=== PATIENT | male | born 1975 | race Caucasian/White ===

== ENCOUNTER 2022-07-11 17:55 | Emergency (ER) | payer OTHER, SELFPAY ==
--- OUTSIDE RECORDS SUMMARY | 2022-07-11 18:00 | XMS REPORT | Continuity of Care Document ---
:1975 Author Organization [facility] t Address [address] [place] [address] Care Team Providers Name Role Phone Pcp, Patient Does Not Have A Primary Care Physician [id number] JOSE ALFREDO REY Attending Clinician Unavailable Maryann Martins Attending Clinician MARYANN PRADO Attending Clinician Unavailable TIKI JOSEPH Attending Clinician Unavailable TIKI JOSEPH Attending Clinician Unavailable Tiki Joseph DO Attending Clinician Doctor Unassigned, [place] Attending Clinician Unavailable STACEY MOTT Attending Clinician Unavailable Stacey Davila Attending Clinician Tiffany Saldaña MD Attending Clinician Provider, [facility] Attending Clinician Unavailable Francoise Cruz Attending Clinician FRANCOISE AVILA Attending Clinician Unavailable King MARIAA MD, James C Attending Clinician HEIDY MARTINEZ III Attending Clinician Unavailable Darrick CAMPOS, Dorene Husain Attending Clinician Unavailable Payers Payer Name Policy Type Policy Number Effective Date Expiration Date Abner rojas [facility] 14 [id number] 2022 00:00:00 Problems Condition Condition Condition Status Onset Resolution Last Treating Co mments Source Name Details Category Date Date Treatment Clinician Date History of History of Disease Active 2021-07 K elsey gastric gastric 2-20 Seybold surgery surgery 00:00: - 00 Externa l Attention Attention Disease Active 2021-07 Wan sey deficit deficit 2-20 Seybold hyperactiv hyperactiv 00:00: - ity ity 00 Externa disorder disorder l (ADHD), (ADHD), 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 GERD GERD Disease Active 2021-07 Lynn (gastroeso (gastroeso 2-20 Se ybold phageal phageal 00:00: - reflux reflux 00 Externa disease) disease) l Other male Other male Disease Active 2021-07 K elsey erectile erectile 2-20 Seybol d dysfunctio dysfunctio 00:00: - n n 00 Externa l SKYE SKYE Disease Active 2021-07 Lynn (obstructi (obstructi 2-20 Se ybold ve sleep ve sleep 00:00: - apnea) apnea) 00 Externa l Seasonal Seasonal Disease Active 2021-07 Wanse y allergic allergic 2-20 Seybol d rhinitis rhinitis 00:00: - due to due to 00 Externa pollen pollen l Elevated Elevated Disease Active 2021-07 Wanse y BP without BP without 2-20 Se ybold diagnosis diagnosis 00:00: - of of 00 Externa hypertensi hypertensi l on on Morbid Morbid Disease Active 2021-07 Lynn obesity obesity 2-20 Seybold 00:00: - 00 Externa l Reactive Reactive Disease Active 2021-07 Yonis y airway airway 2-20 Seybold disease disease 00:00: - without without 00 Externa complicati complicati l on on Low Low Disease Active 2021-07 Lynn testostero testostero 2-20 Se ybold ne ne 00:00: - 00 Externa l No known No known Disease Unive rs active active ity of problems problems [place] [facility] Allergies, Adverse Reactions, Alerts Allergy Allergy Status Severity Reaction(s) Onset Inactive Treating Comm ents Source Name Type Date Date Clinician Cephalos Drug Active Swelling 2020-07 Lynn porins Intolera 2-22 Seybold nce 00:00: - 00 Externa l Cephalos Propensi Active Cough 2020-07 Univer s porins ty to 2-22 ity of adverse 00:00: [place] reaction 00 Medical s Branch CEPHALOS Drug Active Swelling 2020-07 Univer s PORINS Class 2-22 ity of 00:00: [place] 00 Medical Branch Cephalos Propensi Active Cough 2020-07 Univer s porins ty to 2-22 ity of adverse 00:00: [place] reaction 00 [facility] Cephalex Drug Active Other Other Lynn in Intolera 7-15 reaction( Seybo ld nce 00:00: s): Other - 00 (See Externa Comments) l "Shaky and didn't feel well""Sha ky and didn't feel well" Social History Social Habit Start Date Stop Date Quantity Comments Source Alcohol intake 2022-06-29 2022-06-29 1.43 /d Lynn Sey bold - 00:00:00 00:00:00 External Exposure to 2022-01-21 2022-01-31 Not sure University SARS-CoV-2 00:00:00 15:44:00 [facility] (event) [place] Tobacco use and 2021-07-01 2021-07-01 Smokeless tobacco Un iversity of exposure 00:00:00 00:00:00 non-user [facility] Sex Ass[birth year] At [birth year] Lynn Se ybold - 00:00:00 00:00:00 External Smoking Status Start Date Stop Date Source Never smoked tobacco Lynn Seyb old - External Medications Ordered Filled Start Stop Current Ordering Indication Dosage Frequency Signature Comments Components Source Medication Medication Date Date Medication? Clinician (SIG) Name Name Amphetamine 2021-07- No 20mg Take 20 mg Lynn -Dextroamph 2-20 12-20 by mouth 3 S eybold etamine 20 15:23: 00:00 times - MG oral 52 :00 daily Externa Tablet l Ondansetron 2021-07 Yes ondansetro Lynn (ZOFRAN) 8 2-20 n HCl 8 mg Sey bold MG oral 14:45: tablet - tablet 45 Externa l Esomeprazol 2021-07 Yes 20mg Take 20 mg Lynn e Magnesium 2-20 by mouth Seyb old 20 MG oral 14:45: - Delayed 45 Externa Release l Capsule Cetirizine 2021-07 Yes [id number] 10mg Take 1 K elsey HCl (ZyrTEC 2-20 capsule Seybo ld Allergy) 10 00:00: (10 mg - MG oral 00 total) by Externa Capsule mouth l daily predniSONE 2021-07 Yes [id number] 10mg Take 1 K elsey (DELTASONE) 2-20 tablet (10 Se ybold 10 MG oral 00:00: mg total) - tablet 00 by mouth Externa daily l Fluticasone 2021-07 Yes [id number] 1{puff} Inhale 1 Lynn -Salmeterol 2-20 puff into Sey bold 250-50 00:00: the lungs - MCG/ACT 00 every 12 Externa inhalation hours l AEROSOL POWDER, BREATH ACTIVATED Albuterol 2021-07 Yes [id number] 2{puff} Q.25D Inhale 2 Lynn HFA 108 (90 2-20 puffs into Se ybold Base) 00:00: the lungs - MCG/ACT IN 00 every 6 [employer]'S Service Supervisor a AERS hours as l needed for wheezing clomiPHENE 2021-07 Yes [id number] 50mg Take 1 Lynn Citrate 50 2-20 tablet (50 Sey bold MG oral 00:00: mg total) - Tablet 00 by mouth Externa daily l Anastrozole 2021-07 Yes [id number] Twice per Lynn 1 MG oral 2-20 week Seybold Tablet 00:00: - 00 Externa l Amphetamine 2021-07 Yes [id number] 20mg Take 1 Lynn -Dextroamph 2-20 tablet (20 Se ybold etamine 20 00:00: mg total) - MG oral 00 by mouth 3 [facility] [employer] a Tablet times l daily FLUTICASONE 2021-07 Yes [id number] 50ug Use 1 K elsey PROPIONATE, 2-20 spray (50 Sey bold NASAL, 50 00:00: mcg total) - MCG/ACT 00 in each Externa nasal nostril l Suspension daily Azithromyci 2021-07- Yes [id number] Take 2 Lynn n 250 MG 2-20 12-26 tablets by Seyb old oral Tablet 00:00: 05:59 mouth on - 00 :00 day 1 then Externa 1 tablet l by mouth daily for 4 days thereafter . Anastrozole 2021-07- No 1{tbl} Take 1 K elsey 1 MG oral 1-17 12-20 tablet by Seyb old Tablet 00:00: 00:00 mouth - 00 :00 daily Externa l Tadalafil 5 2021-07 Yes 5mg Take 5 mg K elsey MG oral 0-18 by mouth Seybold Tablet 00:00: daily - 00 Externa l anastrozole Yes anastrozol Univers 1 mg tablet 7-24 e 1 mg ity of 15:41: tablet [address] anastrozole 0 Yes anastrozol Univers 1 mg tablet 7-24 e 1 mg ity of 15:41: tablet [address] esomeprazol Yes 20mg Take 20 mg Univers e 20 mg 7-24 by mouth. ity of capsule 15:41: [address] esomeprazol Yes 20mg Take 20 mg Univers e 20 mg 7-24 by mouth. ity of capsule 15:41: [address] ondansetron Yes [id number] 8mg Take 2 Univers 4 mg 7-24 9105 tablets by ity of disintegrat 00:00: mouth [place] ing tablet 00 every 8 Medica l (eight) Branch hours as needed for Nausea and Vomiting (N/V). butalbital- 0 Yes [id number] 1{tbl} Take 1 Univers acetaminoph 7-24 9105 tablet by ity of en-caff 00:00: mouth [place] 50-325-40 00 every 8 Medical mg tablet (eight) Branch hours as needed for Pain (scale 4-6). ondansetron 2021-0 Yes [id number] 8mg Take 2 Univers 4 mg 7-24 9105 tablets by ity of disintegrat 00:00: mouth [place] ing tablet 00 every 8 Medica l (eight) Branch hours as needed for Nausea and Vomiting (N/V). butalbital- 2021- Yes [id number] 1{tbl} Take 1 Univers acetaminoph 7-24 9105 tablet by ity of en-caff 00:00: mouth [place] 50-325-40 00 every 8 Medical mg tablet (eight) Branch hours as needed for Pain (scale 4-6). dextroamphe 0 Yes 20mg Take 20 mg Univers tamine-amph 2-04 by mouth ity of etamine 13:14: daily. Up [place] (ADDERALL) 34 to TID Medical 20 mg Branch tablet dextroamphe 0 Yes 20mg Take 20 mg Univers tamine-amph 2-04 by mouth ity of etamine 13:14: daily. Up [place] (ADDERALL) 34 to TID Medical 20 mg Branch tablet dextroamphe 2-0 Yes 20mg Take 20 mg Univers tamine-amph 2-04 by mouth ity of etamine 13:14: daily. Up [place] (ADDERALL) 34 to TID Medical 20 mg Branch tablet dextroamphe 2-0 Yes 20mg Take 20 mg Univers tamine-amph 2-04 by mouth ity of etamine 13:14: daily. Up [place] (ADDERALL) 34 to TID Medical 20 mg Branch tablet dextroamphe 2021-0 Yes 20mg Take 20 mg Univers tamine-amph 2-04 by mouth ity of etamine 13:14: daily. Up [place] (ADDERALL) 34 to TID Medical 20 mg Branch tablet fluticasone 2021-0 Yes [id number] 1{puff} Inhale 1 Univers propion-walter 2-04 6 Puff every it y of meteroL 00:00: 12 [place] (ADVAIR (twelve) Medical DISKUS) hours. Branch 250-50 mcg/dose inhalation disk albuterol 2-0 Yes [id number] 2{puff} Inhale 2 Univers 90 2-04 6 Puffs ity of mcg/actuati 00:00: every 6 Vivek as on inhaler 00 (six) Medical hours as Branch needed for Wheezing or Shortness of Breath. fluticasone 2-0 Yes [id number] 1{puff} Inhale 1 Univers propion-walter 2-04 6 Puff every it y of meteroL 00:00: 12 [place] (ADVAIR (twelve) Medical DISKUS) hours. Branch 250-50 mcg/dose inhalation disk albuterol 2-0 Yes [id number] 2{puff} Inhale 2 Univers 90 2-04 6 Puffs ity of mcg/actuati 00:00: every 6 Vivek as on inhaler 00 (six) Medical hours as Branch needed for Wheezing or Shortness of Breath. fluticasone 2022-0 Yes [id number] 1{puff} Inhale 1 Univers propion-walter 2-04 6 Puff every it y of meteroL 00:00: 12 [place] (ADVAIR (twelve) Medical DISKUS) hours. Branch 250-50 mcg/dose inhalation disk albuterol 202-0 Yes [id number] 2{puff} Inhale 2 Univers 90 2-04 6 Puffs ity of mcg/actuati 00:00: every 6 Vivek as on inhaler 00 (six) Medical hours as Branch needed for Wheezing or Shortness of Breath. fluticasone 2021-0 Yes [id number] 1{puff} Inhale 1 Univers propion-walter 2-04 6 Puff every it y of meteroL 00:00: 12 [place] (ADVAIR 00 (twelve) Medical DISKUS) hours. Branch 250-50 mcg/dose inhalation disk albuterol 2021-0 Yes [id number] 2{puff} Inhale 2 Univers 90 2-04 6 Puffs ity of mcg/actuati 00:00: every 6 [place] as on inhaler 00 (six) Medical hours as Branch needed for Wheezing or Shortness of Breath. fluticasone 2021-0 Yes [id number] 1{puff} Inhale 1 Univers propion-walter 2-04 6 Puff every it y of meteroL 00:00: 12 [place] (ADVAIR 00 (twelve) Medical DISKUS) hours. Branch 250-50 mcg/dose inhalation disk albuterol 2021-0 Yes [id number] 2{puff} Inhale 2 Univers 90 2-04 6 Puffs ity of mcg/actuati 00:00: every 6 Vivek as on inhaler 00 (six) Medical hours as Branch needed for Wheezing or Shortness of Breath. Fluticasone 2021-0 2022- No 1{puff} Inhale 1 Lynn -Salmeterol 2-04 12-20 puff into Se ybold 250-50 00:00: 00:00 the lungs - MCG/ACT 00 :00 every 12 Externa inhalation hours l AEROSOL POWDER, BREATH ACTIVATED bromphenira 2021-0 Yes [id number] 5mL Take 5 mL Univers mine-pseudo 1-26 by mouth 4 it y of ephedrine-D 00:00: (four[place] (BROMFED 00 times Medical DM) 2-30-10 daily as Bran ch mg/5 mL needed for syrup Congestion /Allergies or Cough. bromphenira 2021-0 Yes [id number] 5mL Take 5 mL Univers mine-pseudo 1-26 by mouth 4 it y of ephedrine-D 00:00: (four[place] (BROMFED 00 times Medical DM) 2-30-10 daily as Bran ch mg/5 mL needed for syrup Congestion /Allergies or Cough. bromphenira 2021-0 Yes [id number] 5mL Take 5 mL Univers mine-pseudo 1-26 by mouth 4 it y of ephedrine-D 00:00: (four[place] (BROMFED 00 times Medical DM) 2-30-10 daily as Bran ch mg/5 mL needed for syrup Congestion /Allergies or Cough. bromphenira 2021-0 Yes [id number] 5mL Take 5 mL Univers mine-pseudo 1-26 by mouth 4 it y of ephedrine-D 00:00: (four) [place] (BROMFED 00 times Medical DM) 2-30-10 daily as Bran ch mg/5 mL needed for syrup Congestion /Allergies or Cough. bromphenira 2021-0 Yes [id number] 5mL Take 5 mL Univers mine-pseudo 1-26 by mouth 4 it y of ephedrine-D 00:00: (four[place] (BROMFED 00 times Medical DM) 2-30-10 daily as Bran ch mg/5 mL needed for syrup Congestion /Allergies or Cough. predniSONE 2021-0 2021- No [id number] Take 4 Univers 10 mg 1-26 02-07 tablets by ity of tablet 00:00: 05:59 mouth [place] 00 :00 daily for Medical 5 days, Branch THEN 3 tablets daily for 3 days, THEN 2 tablets daily for 2 days, THEN 1 tablet daily for 1 day. predniSONE 2021-0 2021- No [id number] Take 4 Univers 10 mg 1-26 02-07 tablets by ity of tablet 00:00: 05:59 mouth [place] 00 :00 daily for Medical 5 days, Branch THEN 3 tablets daily for 3 days, THEN 2 tablets daily for 2 days, THEN 1 tablet daily for 1 day. doxycycline 2021-0 Yes [id number] 100mg Take 1 Univers monohydrate 1-13 capsule by it y of 100 mg 00:00: mouth 2 [place] capsule 00 (two) Medical times Branch daily. doxycycline 2021-0 Yes [id number] 100mg Take 1 Univers monohydrate 1-13 capsule by it y of 100 mg 00:00: mouth 2 [place] capsule 00 (two) Medical times Branch daily. doxycycline 2-0 Yes [id number] 100mg Take 1 Univers monohydrate 1-13 capsule by it y of 100 mg 00:00: mouth 2 [place] capsule 00 (two) Medical times Branch daily. doxycycline 2-0 Yes [id number] 100mg Take 1 Univers monohydrate 1-13 capsule by it y of 100 mg 00:00: mouth 2 [place] capsule 00 (two) Medical times Branch daily. doxycycline 2022-0 Yes [id number] 100mg Take 1 Univers monohydrate 1-13 capsule by it y of 100 mg 00:00: mouth 2 [place] capsule 00 (two) Medical times Branch daily. clomiPHENE 2020-07 Yes clomiphene U nivers 50 mg 2-22 citrate 50 ity of tablet 20:08: mg tablet [place] [address] TAKE ONE Medical TABLET BY Branch MOUTH ONE TIME DAILY ANASTROZOLE 2020-07 Yes 20mg Take 20 mg Univers ORAL 2-22 by mouth. ity of 20:08: [address] tadalafiL 2020-07 Yes 20mg Take 20 mg Un quoc 20 mg 2-22 by mouth. ity of tablet 20:08: [address] clomiPHENE 2020-07 Yes clomiphene U nivers 50 mg 2-22 citrate 50 ity of tablet 20:08: mg tablet [place] [address] TAKE ONE Medical TABLET BY Branch MOUTH ONE TIME DAILY ANASTROZOLE 2020-07 Yes 20mg Take 20 mg Univers ORAL 2-22 by mouth. ity of 20:08: [address] tadalafiL 2020-07 Yes 20mg Take 20 mg Un quoc 20 mg 2-22 by mouth. ity of tablet 20:08: [address] clomiPHENE 2020-07 Yes clomiphene U nivers 50 mg 2-22 citrate 50 ity of tablet 20:08: mg tablet [place] [address] TAKE ONE Medical TABLET BY Branch MOUTH ONE TIME DAILY ANASTROZOLE 2020-07 Yes 20mg Take 20 mg Univers ORAL 2-22 by mouth. ity of 20:08: [address] tadalafiL 2020-07 Yes 20mg Take 20 mg Un quoc 20 mg 2-22 by mouth. ity of tablet 20:08: [address] clomiPHENE 2021-1 Yes clomiphene U nivers 50 mg 2-22 citrate 50 ity of tablet 20:08: mg tablet [place] [address] TAKE ONE Medical TABLET BY Branch MOUTH ONE TIME DAILY ANASTROZOLE 2020-07 Yes 20mg Take 20 mg Univers ORAL 2-22 by mouth. ity of 20:08: [address] tadalafiL 2020-07 Yes 20mg Take 20 mg Un quoc 20 mg 2-22 by mouth. ity of tablet 20:08: [address] clomiPHENE 2020-07 Yes clomiphene U nivers 50 mg 2-22 citrate 50 ity of tablet 20:08: mg tablet [place] [address] TAKE ONE Medical TABLET BY Branch MOUTH ONE TIME DAILY ANASTROZOLE 2020-07 Yes 20mg Take 20 mg Univers ORAL 2-22 by mouth. ity of 20:08: [address] tadalafiL 2020-07 Yes 20mg Take 20 mg Un quoc 20 mg 2-22 by mouth. ity of tablet 20:08: [address] clomiPHENE 2021- No clomiphene Lynn Citrate 50 - 12-20 citrate 50 Se ybold MG oral 00:00: 00:00 mg tablet - Tablet 00 :00 TAKE ONE Externa TABLET BY l MOUTH ONE TIME DAILY Cetirizine 2021- No Lynn HCl (ZyrTEC 07-1120 Seybold Allergy) 10 00:00: 00:00 - MG oral 00 :00 Externa Capsule l Immunizations Ordered Immunization Filled Immunization Date Status Commen ts Source Name Name Td (adult) 2017-01-22 Completed Lynn Lacy 00:00:00 - External Vital Signs Vital Name Observation Time Observation Value Comments Source Systolic blood 2022-06-29 21:16:00 130 mm[Hg] Lynn Lacy - pressure External Diastolic blood 2022-06-29 21:16:00 88 mm[Hg] Yonis Montgomeryold - pressure External Heart rate 2022-06-29 20:36:00 118 /min Lynn bellboenrique - External Body temperature 2022-06-29 20:36:00 37 Radha Venus ey Seybold - External Respiratory rate 2022-06-29 20:36:00 16 /min Venus bell Seybold - External Body height 2022-06-29 20:36:00 180.3 cm Lynn bellboenrique - External Body weight 2022-06-29 20:36:00 196.861 kg Lynn bellbold - External BMI 2022-06-29 20:36:00 60.53 kg/m2 Lynn bellboenrique - External Systolic blood 2022-01-31 20:42:00 142 mm[Hg] Univer sity of pressure [place] [facility] Diastolic blood 2022-01-31 20:42:00 87 mm[Hg] Unive rsity of pressure [place] [facility] Heart rate 2022-01-31 20:41:00 94 /min Universi ty [facility] [place] [facility] Body temperature 2022-01-31 20:41:00 37.17 Radha Univ ersity of [place] [facility] Respiratory rate 2022-01-31 20:41:00 20 /min Univ ersity of [place] [facility] Body height 2022-01-31 20:41:00 180.3 cm Universi ty of [place] [facility] Body weight 2022-01-31 20:41:00 187.789 kg Universi ty [facility] [place] [facility] BMI 2022-01-31 20:41:00 57.74 kg/m2 Universi ty [facility] [place] [facility] Oxygen saturation in 2022-01-31 20:41:00 97 /min University of Arterial blood by [facility] [place] [facility] marcela Pulse oximetry Branch Systolic blood 2021-08-14 19:15:00 151 mm[Hg] Univer sity of pressure [place] [facility] Diastolic blood 2021-08-14 19:15:00 97 mm[Hg] Unive rsity of pressure [place] [facility] Heart rate 2021-08-14 19:13:00 98 /min Universi ty [facility] [place] [facility] Body height 2021-08-14 19:13:00 180.3 cm Universi ty [facility] [place] [facility] Body weight 2021-08-14 19:13:00 173.444 kg [facility] [place] [facility] BMI 2021-08-14 19:13:00 53.33 kg/m2 Universi ty [facility] [place] [facility] Oxygen saturation in 2021-08-14 19:13:00 96 /min University of Arterial blood by [facility] [place] [facility] marcela Pulse oximetry Branch Procedures This patient has no known procedures. Encounters Start End Encounter Admission Attending Care Care Encounter Source Date/Time Date/Time Type Type Clinicians Facility Department ID 2022-06-29 2022-06-29 Outpatient LYNN REY [id number] Lynn 14:45:00 14:45:00 JOSE ALFREDO smith 2022-02-13 2022-02-13 Refill Johan [facility] [id number] Univers 00:00:00 00:00:00 Maryann HEALTH [id number] it y of [place] [id number] Vivek as VANDANA?BLEA [id number] [address] OFFICE [facility] 2022-01-31 2022-01-31 Urgent [facility] [id number] Univers 15:40:00 16:00:00 Care Maryann HEALTH [id number] it y of [place] [id number] Vivek as VANDANA?BLEA [id number] [address] 2022-01-31 2022-01-31 Outpatient R JOHAN [facility] [id number] Univers 15:40:00 15:40:00 MARYANN ity of [facility] 2021-12-10 2021-12-10 Outpatient R TIKI JOSEPH [facility] [id number] Univers 13:30:00 13:30:00 TIKI JOSEPH i ty of [facility] 2021-09-01 2021-09-01 Telephone Kathryn [facility] [id number] Univers 00:00:00 00:00:00 Tiki [place] [id number] i ty of [place] 4.2.7.2.686 [place] PROFESS[place] [id number] [facility] 2021-08-14 2021-08-14 Outpatient R TIKI JOSEPH [facility] [id number] Univers 13:00:00 13:30:04 TIKI JOSEPH i ty of [facility] 2021-08-14 2021-08-14 [facility] [id number] Univers 13:00:00 13:30:04 Visit Tiki GLYNN 350.1.13.10 i ty of [place] 4.2.7.2.686 [place] YENNYSONJA [id number] Me dical NAL [facility] 2021-08-14 2021-08-14 Outpatient R TIKI JOSEPH [facility] [id number] Univers 13:00:00 13:30:04 TIKI JOSEPH i ty of [facility] 2021-08-14 2021-08-14 Orders Doctor MARY [id number] Univers 00:00:00 00:00:00 Only Unassigned, CHANDLER [id number] ity of [place] [facility] [id number] Vivek as [id number] [address] 2021-08-05 2021-08-05 [facility] [id number] Univers 20:40:00 21:02:32 STACEY perales o f [facility] 2021-08-05 2021-08-05 Urgent Stacey Mott [facility] 1.2.840. [id number] Univers 20:40:00 21:02:32 Care Tiffany Saldaña [id number] ity of [facility] [id number] Vivek as VANDANA?BLEA [id number] Oh dickarin GONZALEZ [address] MEDICAL OFFICE [facility] 2021-08-05 2021-08-05 Telephone Provider, [facility] [id number] Univers 00:00:00 00:00:00 Ang Db HEALTH [id number] it y of Urgent Care [facility] [id number] [place] VANDANA?BLEA [id number] Oh dickarin GONZALEZ [address] MEDICAL OFFICE [facility] 2021-07-28 2021-07-28 [facility] [id number] Univers 20:33:24 23:59:00 Encounter Francoise [place] HEALTH [id number] ity of [facility] [id number] Vivek as VANDANA?BLEA [id number] Oh dickarin GONZALEZ [address] [place] MEDICAL OFFICE [facility] 2021-07-28 2021-07-28 [facility] [id number] Univers 20:33:23 23:59:00 FRANCOISE ity o f [facility] 2021-07-28 2021-07-28 [facility] [id number] Univers 20:33:23 23:59:00 Encounter Francoise Cuco HEALTH [id number] ity of [place] 4.2.7.2.686 Vivek as VANDANA?BLEA [phone] [facility] [address] [place] [address] MEDICAL OFFICE [facility] 2021-07-28 2021-07-28 [facility] [id number] Univers 20:33:23 23:59:00 Encounter Francoise J HEALTH 350.1.13.10 ity of [place] 4.2.7.2.686 Vivek as VANDANA?BLEA [id number] [facility] [address] [place] [address] OFFICE [facility] 2021-07-28 2021-07-28 Urgent Yonatan Francoise [facility] 1.2.840 .114 [id number] Univers 20:20:00 20:43:40 Care Johan Maryann HEALTH [id number] ity of [place] 4.2.7.2.686 Vivek as VANDANA?BLEA [id number] [address] MEDICAL OFFICE [facility] 2021-07-23 2021-07-23 Urgent Heidy Martinez [facility] [id number] Univers 19:40:00 20:00:00 Care Green, Maryann HEALTH [id number] ity of [place] [id number] Vivek as VANDANA?BLEA [phone] [address] MEDICAL OFFICE [facility] 2021-07-23 2021-07-23 Outpatient R KING MARIAA [facility] [id number] Univers 19:40:00 19:40:00 HEIDY perales [facility] [place] [facility] 2021-07-23 2021-07-23 Letter Provider, [facility] [id number] Univers 00:00:00 00:00:00 (Out) Ang Db HEALTH 350.1.13.10 it y of Urgent Care [place] 4.2.7.2.686 [place] VANDANA?BLEA [id number] [address] MEDICAL OFFICE BUILDING 2021-07-02 2021-07-02 Telephone MARY [place] [id number] Univers 00:00:00 00:00:00 Estefaníanehalrubin ARTEAGA 350.1.13.10 ity of [facility] [id number] Vivek as [id number] [address] 2021-07-01 2021-07-01 Urgent [facility] [id number] Univers 20:00:00 20:51:14 Care [facility] [id number] it y of [place] [id number] Vivek as VANDANA?BLEA [id number] [address] MEDICAL OFFICE BUILDING 2021-07-01 2021-07-01 [facility] [id number] Univers 20:00:00 20:51:14 [facility] This patient has no known results.
[2022-07-11] MEDS ORDERED: ONDANSETRON 4 MG/2 ML VIAL ONE ×2 (19:03→22:01)
[2022-07-11] MEDS ORDERED: MORPHINE 4 MG/ML SYR ONE (19:03)
[2022-07-11] MEDS ORDERED: NA CHLORIDE 0.9% 1,000 ML ONE ×2 (19:03→21:30)
[2022-07-11 19:04] LABS: Absolute Lymphocytes (CBC) 0.2 K/uL (0.7-4.9); Hematocrit 45.6 % (39.6-49.0); Lymphocytes % 2.3 % (15.3-44.8); MPV 8.9 fL (7.6-11.3); RBC Red Blood Cell Count 4.85 M/uL (4.33-5.43)
[2022-07-11 19:22] LABS: Albumin 3.5 g/dL (3.4-5.0); Bilirubin Total 0.7 mg/dL (0.2-1.0); Potassium 4.2 mmol/L (3.5-5.1); Protein, Total 7.2 g/dL (6.4-8.2)
[2022-07-11 19:33] LABS: Blood Morphology Comment NOT SEEN (NOT SEEN); Platelet Estimate DECR; White Blood Cell Scan OK (OK)
--- NOTE | 2022-07-11 19:50 | ER ---
Nurse's Notes [facility] Name: Tommy Mcfarland Age: 47 yrs Sex: Male : 1975 Arrival Date: 07/11/2022 Time: 17:58 Bed 2 Private MD: Diagnosis: Abdominal pain, Generalized Presentation: 07/11 18:16 Chief complaint: Patient states: woke up this morning and my stomach was hurting, I kr3 have eaten a banana and a yogurt today. I feel very bloated and sore. I take Nexium daily and I also took 3 gas x. I also have vertical band on stomach. I just finished steroids (4 days ago) , z-pack (1 week) ago. I have been gassy the last 2 weeks but it is better today. My stomach doesn't feel right. Coronavirus screen: Vaccine status: Patient reports receiving the 2nd dose of the covid vaccine. Client denies travel out of the [place] in the last 14 days. Ebola Screen: Patient denies travel to an Ebola-affected area in the 21 days before illness onset. Initial Sepsis Screen: Does the patient meet any 2 criteria? No. Patient's initial sepsis screen is negative. Does the patient have a suspected source of infection? No. Patient's initial sepsis screen is negative. Risk Assessment: Do you want to hurt yourself or someone else? Patient reports no desire to harm self or others. Onset of symptoms was July 11, 2022. 18:16 Method Of Arrival: Ambulatory kr3 18:16 Acuity: HEIDI 3 kr3 Triage Assessment: 18:25 General: Appears in no apparent distress. uncomfortable, Behavior is calm, cooperative, kr3 appropriate for age. Pain: Complains of pain in abdomen Pain currently is 6 out of 10 on a pain scale. Historical: - Allergies: 18:23 CEPHALOSPORINS; kr3 - PMHx: 18:23 Hypertensive disorder; kr3 - PSHx: 18:23 Appendectomy; Tonsillectomy; Cholecystectomy; kr3 - Immunization history:: Adult Immunizations not up to date. - Social history:: Smoking status: Patient denies any tobacco usage or history of. - History obtained from: spouse, surgical hx of hiatal hernia repair and open cholecystectomy. FHX of IVDU so pt with needle phobia and my vasovagal. Screenin:45 [facility] ED Fall Risk Assessment (Adult) Score/Fall Risk Level 0 - 2 = Low Risk. Abuse as6 screen: Denies threats or abuse. Denies injuries from another. Nutritional screening: No deficits noted. Tuberculosis screening: No symptoms or risk factors identified. Assessment: 19:32 General: Appears in no apparent distress. Behavior is calm, cooperative. Pain: as6 Complains of pain in abdomen. GI: Reports lower abdominal pain, upper abdominal pain, nausea. 22:45 Reassessment: Patient appears in no apparent distress at this time. as6 23:48 Reassessment: Patient appears in no apparent distress at this time. Patient and/or as6 family updated on plan of care and expected duration. Pain level reassessed. Patient is alert, oriented x 3, equal unlabored respirations, skin warm/dry/pink. Patient states feeling better. 07/12 00:24 Reassessment: Patient and/or family updated on plan of care and expected duration. Pain ha1 level reassessed. Patient is alert, oriented x 3, equal unlabored respirations, skin warm/dry/pink. awaiting transfer. 01:40 Reassessment: Patient and/or family updated on plan of care and expected duration. Pain ha1 level reassessed. Patient is alert, oriented x 3, equal unlabored respirations, skin warm/dry/pink. pain 8/10. 02:40 Reassessment: Patient and/or family updated on plan of care and expected duration. Pain ha1 level reassessed. Patient is alert, oriented x 3, equal unlabored respirations, skin warm/dry/pink. awaiting transfer. 03:01 Reassessment: # [phone]. ha1 08:37 Reassessment: Patient appears in no apparent distress at this time. No changes from ko1 previously documented assessment. Patient is alert, oriented x 3, equal unlabored respirations, skin warm/dry/pink. GI: Reports lower abdominal pain, upper abdominal pain, nausea. Vital Signs: 07/11 18:16 BP 155 / 104; Pulse 116; Resp 20; Temp 98.8; Pulse Ox 97% on R/A; Weight 182.8 kg; kr3 Height 5 ft. 11 in. (180.34 cm); Pain 6/10; 19:11 Weight 193.23 kg (M); as6 19:33 BP 131 / 63; Pulse 107; Resp 20 S; Pulse Ox 95% on R/A; as6 20:45 BP 149 / 73; Pulse 110; Resp 19 S; Pulse Ox 98% on R/A; as6 21:30 BP 153 / 79; Pulse 104; Resp 18 S; Pulse Ox 99% on R/A; as6 22:44 BP 147 / 60; Pulse 108; Resp 20 S; Pulse Ox 99% on R/A; as6 23:29 BP 144 / 80; Pulse 106; Resp 16 S; Pulse Ox 100% on R/A; ha1 07/12 00:24 BP 135 / 67; Pulse 103; Resp 19 S; Pulse Ox 99% ; ha1 01:20 BP 141 / 83; Pulse 104; Resp 20 S; Pulse Ox 99% on R/A; ha1 02:13 BP 140 / 77; Pulse 103; Resp 20 S; Pulse Ox 98% on R/A; ha1 06:00 BP 150 / 81; Pulse 96; Resp 18 S; Pulse Ox 96% on R/A; as6 08:37 BP 136 / 91; Pulse 98; Pulse Ox 99% on R/A; ko1 14:02 BP 138 / 85; Pulse 95; Resp 18; Pulse Ox 99% ; ko1 07/11 19:11 Body Mass Index 59.41 (193.23 kg, 180.34 cm) as6 ED Course: 07/11 17:58 Patient arrived in ED. rg4 18:01 Sherlyn Arciniega PA is PHCP. en 18:01 Sarawt Mckenzie MD is Attending Physician. en 18:23 Triage completed. kr3 18:59 CBC with Diff Sent. mm9 18:59 CMP Sent. mm9 18:59 Lipase Sent. mm9 18:59 Troponin High Sensitivity Sent. mm9 19:00 Inserted saline lock: 20 gauge in right antecubital area, using aseptic technique. mm9 Blood collected. 19:11 Pancho Killian, ANDRES is Primary Nurse. as6 19:48 Attending Physician role handed off by Sarwat Mckenzie MD gabino 19:48 Gene Vásquez MD is Attending Physician. gabino 19:55 initiated a transfer with Neena Marin from [facility]. mw2 20:13 initiated a transfer with Margie from [facility] Transfer [place]. mw2 20:31 Abdomen 1 View (KUB) XRAY In Process Unspecified. EDMS 20:43 45 inches abdominal girth. mw2 21:14 [facility] denied due to not having a CT machine available to support the mw2 patients abdominal girth. 21:16 initiated a transfer with Pam from [facility]. mw2 22:45 Arm band placed on. as6 22:45 Placed in gown. Bed in low position. Call light in reach. Side rails up X2. Adult w/ as6 patient. 23:35 attempted to initiate a transfer with [facility]. mw2 23:49 attempted to initiate a transfer with [facility] on a different mw2 phone. been on hold for 28 minutes. 23:50 [facility] denied due to capacity. mw2 07/12 00:35 initiated a transfer with Uyen from [facility]. mw2 01:41 [facility] denied to the CT machine not being able to accommodate the mw2 patient's abdominal girth. 01:52 initiated a transfer with Cathie from [facility] Transfer [place]. [facility] denied mw2 due to their CT machine not being able to accommodate the patient and they are at capacity. 01:58 initiated a transfer with [facility]. [facility] denied due to mw2 their CT machine not being able to accommodate the patient. 02:06 attempted to initiate a transfer with [facility] was on hold for almost an hour and the phone mw2 call got picked up then someone hung up. 02:57 initiated a transfer with Milady from [facility] Transfer [place]. [facility] denied due to mw2 capacity. 05:43 re initiated a transfer with Arianna from [facility]. They are denying due to mw2 saturation. 06:04 re initiated a transfer with [facility]. I have been on hold for mw2 22 minutes so far. 07:05 talked with Fifi from [facility]. Transferred denied Dr. Vásquez would like to talk to ER sp surgery acute care nurse practitioner. Transfer center was unable to transfer call. 07:16 Inserted saline lock: 20 gauge in left wrist, using aseptic technique. Blood collected. as6 08:43 Attending Physician role handed off by Gene Vásquez MD sd2 08:43 Nichole Stubbs MD is Attending Physician. sd2 11:[address] Mejia about pt. [facility] unable to accept pt due to the weight limit sp for CT. [facility] is checking other locations. Dr. Mejia will call when he has an updates. 12:[address] [facility] called to give another number for [facility] [phone] called sp and spoke to Rayne they are at full capacity and not accepting any patients at this time. Rayne stated to call back this afternoon to ask about bed availability. 1150 called [address] back with [facility], she was on another call --waiting call back. 14:02 No provider procedures requiring assistance completed. IV discontinued, intact, ko1 bleeding controlled, No redness/swelling at site. Pressure dressing applied. Administered Medications: 07/11 19:10 Drug: Zofran (Ondansetron) 4 mg Route: IVP; Site: right antecubital; jl7 23:49 Follow up: Response: No adverse reaction as6 19:32 Drug: NS 0.9% 1000 ml Route: IV; Rate: 1 bolus; Site: right antecubital; as6 23:49 Follow up: Response: No adverse reaction; IV Status: Completed infusion; IV Intake: as6 1000ml 19:32 Drug: morphine 4 mg Route: IVP; Infused Over: 4 mins; Site: right antecubital; as6 23:49 Follow up: Response: No adverse reaction as6 20:10 Drug: ProTONIX (pantoprazole) 40 mg Route: IVP; Site: right antecubital; as6 23:48 Follow up: Response: No adverse reaction as6 21:40 Drug: NS 0.9% 1000 ml Route: IV; Rate: 1 bolus; Site: right antecubital; as6 23:48 Follow up: Response: No adverse reaction; IV Status: Completed infusion; IV Intake: as6 1000ml 22:03 Drug: Dilaudid (HYDROmorphone) 1 mg Route: IVP; Site: right antecubital; as6 23:48 Follow up: Response: No adverse reaction as6 22:03 Drug: Zofran (Ondansetron) 4 mg Route: IVP; Site: right antecubital; as6 23:48 Follow up: Response: No adverse reaction as6 07/12 02:14 Drug: Dilaudid (HYDROmorphone) 0.5 mg Route: IVP; Site: right antecubital; ha1 05:43 Drug: Ondansetron 4 mg Route: PO; as6 07:30 Follow up: Response: Nausea is decreased ko1 08:09 Drug: NS 0.9% 1000 ml Route: IV; Rate: 125 ml/hr; Site: left hand; ko1 10:35 Follow up: Response: No adverse reaction ko1 08:24 Drug: Zofran (Ondansetron) 4 mg Route: IVP; Site: left hand; ko1 10:34 Follow up: Response: No adverse reaction; Nausea is decreased ko1 08:25 Drug: Dilaudid (HYDROmorphone) 1 mg Route: IVP; Site: left hand; ko1 10:35 Follow up: Response: No adverse reaction; Pain is decreased ko1 12:34 Drug: Dilaudid (HYDROmorphone) 1 mg Route: IVP; Site: left hand; ko1 Medication: 07/11 22:45 VIS not applicable for this client. as6 Intake: 23:48 IV: 1000ml; Total: 1000ml. as6 23:49 IV: 1000ml; Total: 2000ml. as6 Output: 07/12 08:38 Urine: 650ml (Voided); Total: 650ml. ko1 14:02 Urine: 250ml (Voided); Total: 900ml. ko1 Outcome: 07/11 19:50 ER care complete, transfer ordered by . gabino 07/12 13:27 Discharge ordered by . mame 14:02 Discharged to home ambulatory, with family. ko1 14:02 Condition: stable 14:02 Discharge instructions given to patient, family, Instructed on discharge instructions, follow up and referral plans. Demonstrated understanding of instructions, follow-up care. 14:13 Patient left the ED. ko1 Signatures: Dispatcher [employer] Gene Soto MD MD cha Pinkerton, Shawna sp Garcia, Rubi rg4 Reji Park RN RN jl7 Jackson Mann mw2 Pancho Killian RN RN as6 Three BridgesSherlyn longoria PA PA en Dunlop, Stephanie, MD MD sd2 Neida Dee, RN RN ha1 Ruth Bejarano, RN RN kr3 Milagro Mora, ANDRES RN Manasa Valencia mm9 Corrections: (The following items were deleted from the chart) 07/11 23:30 20:43 40 inches abdominal girth mw2 mw2 07/12 01:43 07/11 21:14 [facility] denied due to not having a CT fit for the patient. mw2 mw2 07/12 06:27 05:43 initiated a transfer with Arianna from [facility] Transfer Center. They are denying due mw2 to saturation mw2
--- NOTE | 2022-07-11 19:50 | EDPHYS ---
Physician Documentation [facility] Name: Tommy Mcfarland Age: 47 yrs Sex: Male : 1975 Arrival Date: 07/11/2022 Time: 17:58 Bed 2 Private MD: ED Physician Nichole Stubbs HPI: 07/11 18:41 This 47 yrs old Male presents to ER via Ambulatory with complaints of Abdominal Pain. en 18:41 47 yo M with morbid obesity, GERD, hiatal hernia s/p repair presents to ED with 2d of en worsening epigastric burning and pain with nausea and nonbloody diarrhea. No vomiting. pain is worse with po intake/ No F/C/CP, SOB. . Historical: - Allergies: 18:23 CEPHALOSPORINS; kr3 - PMHx: 18:23 Hypertensive disorder; kr3 - PSHx: 18:23 Appendectomy; Tonsillectomy; Cholecystectomy; kr3 - Immunization history:: Adult Immunizations not up to date. - Social history:: Smoking status: Patient denies any tobacco usage or history of. - History obtained from: spouse, surgical hx of hiatal hernia repair and open cholecystectomy. FHX of IVDU so pt with needle phobia and my vasovagal. ROS: 18:46 Constitutional: Negative for fever, chills, and weight loss, Cardiovascular: Negative en for chest pain, palpitations, and edema, Respiratory: Negative for shortness of breath, cough, wheezing, and pleuritic chest pain. 18:46 Abdomen/GI: Positive for abdominal pain, nausea, diarrhea, Negative for vomiting, constipation, hematemesis, black/tarry stool, rectal pain. 18:46 All other systems are negative. Exam: 18:46 Constitutional: Visibly uncomfortable 2/2 pain, but nontoxic appearing Head/Face: en Normocephalic, atraumatic. Eyes: Pupils equal round and reactive to light, extra-ocular motions intact. Lids and lashes normal. Conjunctiva and sclera are non-icteric and not injected. Cornea within normal limits. Periorbital areas with no swelling, redness, or edema. ENT: Nares patent. No nasal discharge, no septal abnormalities noted. Tympanic membranes are normal and external auditory canals are clear. Oropharynx with no redness, swelling, or masses, exudates, or evidence of obstruction, uvula midline. Mucous membranes moist. Cardiovascular: tachycardic to 110's 2/2 pain and normal rhythm with a normal S1 and S2. No gallops, murmurs, or rubs. Normal PMI, no JVD. No pulse deficits. Respiratory: Lungs have equal breath sounds bilaterally, clear to auscultation and percussion. No rales, rhonchi or wheezes noted. No increased work of breathing, no retractions or nasal flaring. Abdomen/GI: Obese abdomen so exam limited. Hypoactive bowel sounds, diffuse abdominal distension and epigastic ttp. No guarding or rebound Back: No spinal tenderness. No costovertebral tenderness. Full range of motion. 21:56 ECG was reviewed by the Attending Physician. gabino Vital Signs: 18:16 BP 155 / 104; Pulse 116; Resp 20; Temp 98.8; Pulse Ox 97% on R/A; Weight 182.8 kg; kr3 Height 5 ft. 11 in. (180.34 cm); Pain 6/10; 19:11 Weight 193.23 kg (M); as6 19:33 BP 131 / 63; Pulse 107; Resp 20 S; Pulse Ox 95% on R/A; as6 20:45 BP 149 / 73; Pulse 110; Resp 19 S; Pulse Ox 98% on R/A; as6 21:30 BP 153 / 79; Pulse 104; Resp 18 S; Pulse Ox 99% on R/A; as6 22:44 BP 147 / 60; Pulse 108; Resp 20 S; Pulse Ox 99% on R/A; as6 23:29 BP 144 / 80; Pulse 106; Resp 16 S; Pulse Ox 100% on R/A; ha1 01/02 00:24 BP 135 / 67; Pulse 103; Resp 19 S; Pulse Ox 99% ; ha1 01:20 BP 141 / 83; Pulse 104; Resp 20 S; Pulse Ox 99% on R/A; ha1 02:13 BP 140 / 77; Pulse 103; Resp 20 S; Pulse Ox 98% on R/A; ha1 06:00 BP 150 / 81; Pulse 96; Resp 18 S; Pulse Ox 96% on R/A; as6 08:37 BP 136 / 91; Pulse 98; Pulse Ox 99% on R/A; ko1 14:02 BP 138 / 85; Pulse 95; Resp 18; Pulse Ox 99% ; ko1 07/11 19:11 Body Mass Index 59.41 (193.23 kg, 180.34 cm) as6 MDM: 07/11 18:02 Patient medically screened. en 18:46 Differential diagnosis: AAA, acute coronary syndrome, bowel obstruction, coronary en artery disease, diverticulitis, gastritis, gastroesophageal reflux disease, GI Bleed, Hepatitis, Irritable bowel syndrome, myocardia ischemia or infarction, non-specific abd pain, pancreatitis, Peptic Ulcer Disease, Perf. Duodenal Ulcer, Perf. Gastric Ulcer, incarcerated hernia. Data reviewed: vital signs, nurses notes, lab test result(s), EKG, radiologic studies, and as a result, I will administer IV fluids, IV morphine and zofran for pain control. 19:13 Data reviewed: radiologic studies, plain films. ED course: Pt exceeds weight limit for en facility scanner. Will get KUB to evaluate for free air and plan to transfer for higher level of care once labs back. . 19:49 ED course: Lipase minimally elevated but does not match level of pain. Transfer en initiated for scanner that can accommodated pt. Care turned over to Dr Vásquez. . 07/12 13:23 ED course: The patient has been waiting at our ER for over 16 hours. His pain has sd2 continued to be controlled with IV medications in the ER. US has not yet been obtained. His case has been escalated to our AOC and Head of Surgery who are trying to reach out to other hospitals to accommodate this patient as he has been declined at all of them and all centers refuse to allow the patient to be transferred for CT scan to be performed either. The patient has decided at this time that he would like to be discharged home and his will drive him to either [facility] or [facility] where they have a bariatric surgery program and can likely accommodate the patient. I have informed them that we are unable to rule out any sort of emergent pathology and because we have been unable to do that, risks of leaving include emergent surgery, organ damage/failure and up to . He verbalizes understanding and is willing to accept these risks at this time. Pt awake, alert and oriented x3. To be discharged at this time. He understands that he may change his mind and return at any time for further evaluation. . 07/11 18:41 Order name: CBC with Diff; Complete Time: 19:43 en 07/11 18:41 Order name: CMP; Complete Time: 19:25 en 07/11 18:41 Order name: Lipase; Complete Time: 19:25 en 07/11 18:51 Order name: Troponin High Sensitivity; Complete Time: 07:12 en 07/11 19:07 Order name: CBC Smear Scan; Complete Time: 19:43 EDMS 07/11 19:51 Order name: SARS RAPID; Complete Time: 21:17 mw2 07/11 19:10 Order name: Abdomen 1 View (KUB) XRAY; Complete Time: 21:17 en 07/11 22:09 Order name: Urine Dipstick-Ancillary; Complete Time: 07:12 EDMS 07/12 05:28 Order name: CBC with Diff; Complete Time: 07:12 gabino 07/12 05:28 Order name: Comprehensive Metabolic Panel; Complete Time: 07:12 gabino 07/12 05:28 Order name: Lipase; Complete Time: 07:12 gabino 07/11 18:41 Order name: IV Saline Lock; Complete Time: 18:59 en 07/11 18:41 Order name: Labs collected and sent; Complete Time: 18:59 en 07/11 18:41 Order name: Urine Dipstick-Ancillary (obtain specimen); Complete Time: 22:43 en 07/11 18:51 Order name: EKG; Complete Time: 18:52 en 07/11 19:45 Order name: EKG - Nurse/Tech; Complete Time: 21:44 as6 EC/01 21:56 Rate is 104 beats/min. Rhythm is regular. QRS [place] is Normal. SD interval is normal. gabino QRS interval is normal. QT interval is normal. No Q waves. T waves are Normal. No ST changes noted. Clinical impression: Sinus tachycardia and No evidence of ischemia. Interpreted by me. Reviewed by me. Administered Medications: 19:10 Drug: Zofran (Ondansetron) 4 mg Route: IVP; Site: right antecubital; jl7 23:49 Follow up: Response: No adverse reaction as6 19:32 Drug: NS 0.9% 1000 ml Route: IV; Rate: 1 bolus; Site: right antecubital; as6 23:49 Follow up: Response: No adverse reaction; IV Status: Completed infusion; IV Intake: as6 1000ml 19:32 Drug: morphine 4 mg Route: IVP; Infused Over: 4 mins; Site: right antecubital; as6 23:49 Follow up: Response: No adverse reaction as6 20:10 Drug: ProTONIX (pantoprazole) 40 mg Route: IVP; Site: right antecubital; as6 23:48 Follow up: Response: No adverse reaction as6 21:40 Drug: NS 0.9% 1000 ml Route: IV; Rate: 1 bolus; Site: right antecubital; as6 23:48 Follow up: Response: No adverse reaction; IV Status: Completed infusion; IV Intake: as6 1000ml 22:03 Drug: Dilaudid (HYDROmorphone) 1 mg Route: IVP; Site: right antecubital; as6 23:48 Follow up: Response: No adverse reaction as6 22:03 Drug: Zofran (Ondansetron) 4 mg Route: IVP; Site: right antecubital; as6 23:48 Follow up: Response: No adverse reaction as6 07/12 02:14 Drug: Dilaudid (HYDROmorphone) 0.5 mg Route: IVP; Site: right antecubital; ha1 05:43 Drug: Ondansetron 4 mg Route: PO; as6 07:30 Follow up: Response: Nausea is decreased ko1 08:09 Drug: NS 0.9% 1000 ml Route: IV; Rate: 125 ml/hr; Site: left hand; ko1 10:35 Follow up: Response: No adverse reaction ko1 08:24 Drug: Zofran (Ondansetron) 4 mg Route: IVP; Site: left hand; ko1 10:34 Follow up: Response: No adverse reaction; Nausea is decreased ko1 08:25 Drug: Dilaudid (HYDROmorphone) 1 mg Route: IVP; Site: left hand; ko1 10:35 Follow up: Response: No adverse reaction; Pain is decreased ko1 12:34 Drug: Dilaudid (HYDROmorphone) 1 mg Route: IVP; Site: left hand; ko1 Disposition: 07/11 19:54 Co-signature as Attending Physician, Gene ESCALERA I agree with the assessment and gabino plan of care. Disposition Summary: 07/12/22 13:27 Discharge Ordered Location: Home sd2 Problem: new(07/12/22 13:27) sd2 Symptoms: have improved(07/12/22 13:27) sd2 Condition: Stable(07/12/22 13:27) sd2 Diagnosis - Abdominal pain, Generalized(07/12/22 13:27) sd2 Followup: sd2 - With: Emergency Department - When: Upon discharge from the Emergency Department - Reason: Continuance of care Discharge Instructions: - Discharge Summary Sheet sd2 - Abdominal Pain, Adult sd2 - Pain Without a Known Cause sd2 Forms: - Medication Reconciliation Form sd2 - Thank You Letter sd2 - Antibiotic Education sd2 - Prescription Opioid Use sd2 Signatures: Dispatcher [employer] EDIL Gene Vásquez MD MD cha Leal, Jahala RN RN jl7 Pancho Killian RN RN as6 Sherlyn Arciniega PA PA en Dunlop, Stephanie, MD MD sd2 Neida Dee RN RN ha1 Ruth Bejarano RN RN kr3 Milagro Mora RN RN ko1 Corrections: (The following items were deleted from the chart) 18:47 18:41 47 yo M with morbid obesity, GERD, hiatal hernia s/p repair presents to ED with en 2d of worsening epigastric burning and pain. en 19:23 18:41 Abdomen Pelvis W Con+CT.RAD.BRZ ordered. [facility] 07/12 13:26 07/11 19:50 TO [facility] gabino sd2 07/12 13:07/11 19:50 [facility] gabino sd2 07/12 13:26 07/11 19:50 Higher level of care gabino sd2 07/12 13:26 07/11 19:50 Stable gabino sd2 07/12 13:26 07/11 19:50 new gabino sd2 07/12 13:26 07/11 19:50 have improved gabino sd2 07/12 13:07/11 19:50 Abdominal pain, Generalized gabino sd2
[2022-07-11] MEDS ORDERED: PANTOPRAZOLE 40 MG INJ ONE (20:08)
[2022-07-11 20:24] LABS: SARS-CoV-2 Antigen Rapid Res Negative (Negative)
--- NOTE | 2022-07-11 20:44 | RAD REPORT ---
EXAM DESCRIPTION: RAD - Abdomen 1 View (KUB) - 07/11/2022 8:29 pm CLINICAL HISTORY: ABD PAIN COMPARISON: No comparisons FINDINGS: Single portable upright view was obtained and included the mid and upper abdomen. Due to v daniele large body habitus and patient mobility, no additional imaging could be obtained. Patient's body weight exceeds the limits of the CT scanner is at this facility. No free air under the diaphragms. No evidence for free air or pneumatosis elsewhere. Air is seen in a stomach that does not appear to be dilated. IMPRESSION: Very limited imaging shows no free air.
[2022-07-11] MEDS ORDERED: HYDROMORPHONE HCL 1 MG/ML INJ ONE (22:01)
[2022-07-11 22:09] LABS: Urine Blood Negative (Negative); Urine Glucose Negative (Negative); Urine Protein Negative (Negative)
[2022-07-12] MEDS ORDERED: HYDROMORPHONE HCL 0.5 MG/0.5 ML INJ ONE (02:11)
[2022-07-12] MEDS ORDERED: ONDANSETRON 4 MG (ODT) TAB ONE (05:44)
[2022-07-12 06:25] LABS: Absolute Lymphocytes (CBC) 0.4 K/uL (0.7-4.9); Hematocrit 41.2 % (39.6-49.0); Lymphocytes % 6.2 % (15.3-44.8); MCV 94.1 fL (80-100); MPV 8.7 fL (7.6-11.3); RBC Red Blood Cell Count 4.38 M/uL (4.33-5.43)
[2022-07-12 06:43] LABS: Albumin 2.8 g/dL (3.4-5.0); Bilirubin Total 0.7 mg/dL (0.2-1.0); Potassium 3.9 mmol/L (3.5-5.1); Protein, Total 6.1 g/dL (6.4-8.2)
[2022-07-12] MEDS ORDERED: HYDROMORPHONE HCL 1 MG/ML INJ ONE ×2 (08:09→12:36)
[2022-07-12] MEDS ORDERED: ONDANSETRON 4 MG/2 ML VIAL ONE (08:09)
[2022-07-12] MEDS ORDERED: NA CHLORIDE 0.9% 1,000 ML ONE (08:09)
[2022-07-12 14:49] VITALS: TEMP 98.8
[2022-07-12 15:01] VITALS: O2SAT 99
[2022-07-12 15:02] VITALS: BP 138/85
--- NOTE | 2022-07-13 08:34 | EKG ---
Test Date: 2022-07-11 Test Time: 21:39:29 Manager Rfid: MEASUREMENT RESULTS: Intervals: Rate: 104 NV: 146 QRSD: 96 QT: 360 QTc: 473 [place]: P: 53 NV: 146 QRS: -20 T: 65 INTERPRETIVE STATEMENTS: Sinus tachycardia Otherwise normal ECG No previous ECG available for comparison Electronically Signed On 07-13-22 08:31:26 JAVA APPLICATION DEVELOPER by Cheko Nunez
== END 2022-07-12 14:13 | disposition home or self-care (01) ==
LOC: ER 17:55
DX: R10.84 Generalized abdominal pain (principal); Z98.890 Other specified postprocedural states; Z20.822 Contact with and (suspected) exposure to COVID-19; Z88.3 Allergy status to other anti-infective agents
CPT/HCPCS: 93005; 85025 ×2; 36415; 81003; 84484; 83690 ×2; 80053 ×2; 74018; 99284; 87811; C9113; Q0162; J1170 ×4; J7030 ×3; J2405 ×3

== ENCOUNTER 2022-07-16 12:36 | Emergency (ER) | payer OTHER ==
--- OUTSIDE RECORDS SUMMARY | 2022-07-16 12:41 | XMS REPORT | Continuity of Care Document ---
:1975 Author Organization [facility] t Address [address] [place] [address] Care Team Providers Name Role Phone Pcp, Patient Does Not Have A Primary Care Physician [phone] CHARLIE JAQUEZ Attending Clinician Unavailable JOSE ALFREDO REY Attending Clinician Unavailable RONA HERNÁNDEZ Attending Clinician Unavailable Maryann Martins Attending Clinician MARYANN PRADO Attending Clinician Unavailable TIKI JOSEPH Attending Clinician Unavailable TIKI JOSEPH Attending Clinician Unavailable Tiki Joseph DO Attending Clinician Doctor Unassigned, [place] Attending Clinician Unavailable STACEY MOTT Attending Clinician Unavailable Stacey Davila Attending Clinician Tiffany Saldaña MD Attending Clinician Provider, [facility] Attending Clinician Unavailable Francoise Cruz Attending Clinician FRANCOISE ATM Attending Clinician Unavailable King MARIAA MD, James C Attending Clinician HEIDY MARTINEZ III Attending Clinician Unavailable Darrick CAMPOS, Dorene Husain Attending Clinician Unavailable Payers Payer Name Policy Type Policy Number Effective Date [facility] Date [facility] [id number] 2022 00:00:00 Problems Condition Condition Condition Status Onset Resolution Last Treating Co mments Source Name Details Category Date Date Treatment Clinician Date History of History of Disease Active 2021-07 Michelle stafford gastric gastric 2-20 Seybold surgery surgery 00:00: - 00 Externa l Attention Attention Disease Active 2021-07 Wan youssef deficit deficit 2-20 Seybold hyperactiv hyperactiv 00:00: - ity ity 00 Externa disorder disorder l (ADHD), (ADHD), 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 GERD GERD Disease Active 2021-07 Lynn (gastroeso (gastroeso 2-20 Se ybold phageal phageal 00:00: - reflux reflux 00 Externa disease) disease) l Other male Other male Disease Active 2021-07 Michelle stafford erectile erectile 2-20 Seybol d dysfunctio dysfunctio [...] pollen l Elevated Elevated Disease Active 2021-07 Yonis y BP without BP without 2-20 Se [...] rs active active ity of problems problems [facility] Branch Allergies, Adverse Reactions, Alerts Allergy Allergy [...] ity of adverse 00:00: [place] reaction 00 [facility] s Branch Cephalex Drug Active Other Other Lynn in Intolera 7-15 reaction( Valentinao ld nce 00:00: s): Other - 00 (See Externa Comments) l "Shaky and didn't feel well""Sha ky and didn't feel well" Social History Social Habit Start Date Stop Date Quantity Comments Source Alcohol intake 2022-06-29 2022-06-29 1.43 /d Lynn Youssef bold - 00:00:00 00:00:00 External Exposure to 2022-01-21 2022-01-31 Not sure [facility] SARS-CoV-2 00:00:00 15:44:00 [facility] (event) [place] Tobacco use and 2021-07-01 2021-07-01 Smokeless tobacco Un iversity of exposure 00:00:00 00:00:00 non-user [facility] Sex Assigned At [birth year] Lynn Se ybold - 00:00:00 00:00:00 External Smoking Status Start Date Stop Date Source Never smoked tobacco [place] old - External Medications Ordered Filled Start [...] Externa Release l Capsule Cetirizine 2021-07 Yes [id number] 10mg Take 1 K elsey HCl (ZyrTEC 2-20 capsule Seybo ld Allergy) 10 00:00: (10 mg - MG oral 00 total) by Externa Capsule mouth l daily predniSONE 2021-07 Yes [id number] 10mg Take 1 K elsey (DELTASONE) 2-20 tablet (10 Se ybold 10 MG oral 00:00: mg total) - tablet 00 by mouth Externa daily l Fluticasone 2021-07 Yes [id number] 1{puff} Inhale 1 Lynn -Salmeterol 2-20 puff into Sey bold 250-50 00:00: the lungs - MCG/ACT 00 every 12 Externa inhalation hours l AEROSOL POWDER, BREATH ACTIVATED Albuterol 2021-07 Yes [id number] 2{puff} Q.25D Inhale 2 Lynn HFA 108 (90 2-20 puffs into Se ybold Base) 00:00: the lungs - MCG/ACT IN 00 every 6 [employer] a AERS hours as l needed for wheezing clomiPHENE 2021-07 Yes [id number] 50mg Take 1 Lynn Citrate 50 2-20 tablet (50 Sey bold MG oral 00:00: mg total) - Tablet 00 by mouth Externa daily l Anastrozole 2021-07 Yes [id number] Twice per Lynn 1 MG oral 2-20 week Seybold Tablet 00:00: - 00 Externa l Amphetamine 2021-07 Yes [id number] 20mg Take 1 Lynn -Dextroamph 2-20 tablet (20 Se ybold etamine 20 00:00: mg total) - MG oral 00 by mouth 3 [employer] a Tablet times l daily FLUTICASONE 2021-07 Yes [id number] 50ug Use 1 K elsey PROPIONATE, 2-20 spray (50 Sey bold NASAL, 50 00:00: mcg total) - MCG/ACT 00 in each Externa nasal nostril l Suspension daily Azithromyci 2021-07- Yes [id number] Take 2 Lynn n 250 MG 2-20 [...] e 1 mg ity of 15:41: tablet [address] anastrozole Yes anastrozol Univers 1 mg tablet 7-24 e 1 mg ity of 15:41: tablet [address] esomeprazol Yes 20mg Take 20 mg Univers e 20 mg 7-24 by mouth. ity of capsule 15:41: [address] esomeprazol Yes 20mg Take 20 mg Univers e 20 mg 7-24 by mouth. ity of capsule 15:41: [address] ondansetron Yes [id number] 8mg Take 2 Univers 4 mg 7-24 9105 tablets by ity of disintegrat 00:00: mouth [place] ing tablet 00 every 8 Medica l (eight) Branch hours as needed for Nausea and Vomiting (N/V). butalbital- Yes [id number] 1{tbl} Take 1 Univers acetaminoph 7-24 9105 tablet by ity of en-caff 00:00: mouth [place] 50-325-40 00 every 8 Medical mg tablet (eight) Branch hours as needed for Pain (scale 4-6). ondansetron Yes [id number] 8mg Take 2 Univers 4 mg 7-24 9105 tablets by ity of disintegrat 00:00: mouth [place] ing tablet 00 every 8 Medica l (eight) Branch hours as needed for Nausea and Vomiting (N/V). butalbital- 0 Yes [id number] 1{tbl} Take 1 Univers acetaminoph 7-24 9105 tablet by ity of en-caff 00:00: mouth [place] 50-325-40 00 every 8 Medical mg tablet (eight) Branch hours as needed for Pain (scale 4-6). dextroamphe 2022-0 Yes 20mg Take 20 mg Univers tamine-amph 2-04 by mouth ity of etamine 13:14: daily. Up [place] (ADDERALL) 34 to TID Medical 20 mg Branch tablet dextroamphe 2022-0 Yes 20mg Take 20 mg Univers tamine-amph 2-04 by mouth ity of etamine 13:14: daily. Up [place] (ADDERALL) 34 to TID Medical 20 mg Branch tablet dextroamphe 2022-0 Yes 20mg Take 20 mg Univers tamine-amph 2-04 by mouth ity of etamine 13:14: daily. Up [place] (ADDERALL) 34 to TID Medical 20 mg Branch tablet dextroamphe 2022-0 Yes 20mg Take 20 mg Univers tamine-amph 2-04 by mouth ity of etamine 13:14: daily. Up [place] (ADDERALL) 34 to TID Medical 20 mg Branch tablet dextroamphe 2-0 Yes 20mg Take 20 mg Univers tamine-amph 2-04 by mouth ity of etamine 13:14: daily. Up [place] (ADDERALL) 34 to TID Medical 20 mg Branch tablet fluticasone 2-0 Yes [id number] 1{puff} Inhale 1 Univers propion-walter 2-04 6 Puff every it y of meteroL 00:00: 12 [place] (ADVAIR 00 (twelve) Medical DISKUS) hours. Branch 250-50 mcg/dose inhalation disk albuterol 2-0 Yes [id number] 2{puff} Inhale 2 Univers 90 2-04 6 Puffs ity of mcg/actuati 00:00: every 6 Vivek as on inhaler 00 (six) Medical hours as Branch needed for Wheezing or Shortness of Breath. fluticasone 2022-0 Yes [id number] 1{puff} Inhale 1 Univers propion-walter 2-04 6 Puff every it y of meteroL 00:00: 12 [place] (ADVAIR 00 (twelve) Medical DISKUS) hours. Branch 250-50 mcg/dose inhalation disk albuterol 2022-0 Yes [id number] 2{puff} Inhale 2 Univers 90 2-04 6 Puffs ity of mcg/actuati 00:00: every 6 Vivek as on inhaler 00 (six) Medical hours as Branch needed for Wheezing or Shortness of Breath. fluticasone 2021-0 Yes [id number] 1{puff} Inhale 1 Univers propion-walter 2-04 6 Puff every it y of meteroL 00:00: 12 [place] (ADVAIR 00 (twelve) Medical DISKUS) hours. Branch 250-50 mcg/dose inhalation disk albuterol 2021-0 Yes [id number] 2{puff} Inhale 2 Univers 90 2-04 6 Puffs ity of mcg/actuati 00:00: every 6 Vivek as on inhaler 00 (six) Medical hours as Branch needed for Wheezing or Shortness of Breath. fluticasone 2021-0 Yes [id number] 1{puff} Inhale 1 Univers propion-walter 2-04 6 Puff every it y of meteroL 00:00: 12 [place] (ADVAIR 00 (twelve) Medical DISKUS) hours. Branch 250-50 mcg/dose inhalation disk albuterol 2021-0 Yes [id number] 2{puff} Inhale 2 Univers 90 2-04 6 Puffs ity of mcg/actuati 00:00: every 6 Vivek as on inhaler 00 (six) Medical hours as Branch needed for Wheezing or Shortness of Breath. fluticasone 2021-0 Yes [id number] 1{puff} Inhale 1 Univers propion-walter 2-04 6 Puff every it y of meteroL 00:00: 12 [place] (ADVAIR 00 (twelve) Medical DISKUS) hours. Branch 250-50 mcg/dose inhalation disk albuterol 0 Yes [id number] 2{puff} Inhale 2 Univers 90 2-04 6 Puffs ity of mcg/actuati 00:00: every 6 Vivek as on inhaler 00 (six) Medical hours as Branch needed for Wheezing or Shortness of Breath. Fluticasone 2021-0 2021- No 1{puff} Inhale 1 Lynn -Salmeterol 2-04 12-20 puff into Se ybold 250-50 00:00: 00:00 the lungs - MCG/ACT 00 :00 every 12 Externa inhalation hours l AEROSOL POWDER, BREATH ACTIVATED bromphenira 2021-0 Yes [id number] 5mL Take 5 mL Univers mine-pseudo 1-26 by mouth 4 it y of ephedrine-D 00:00: (four[place] (BROMFED 00 times Medical DM) 2-30-10 daily as Bran ch mg/5 mL needed for syrup Congestion /Allergies or Cough. bromphenira 2021-0 Yes [id number] 5mL Take 5 mL Univers mine-pseudo 1-26 by mouth 4 it y of ephedrine-D 00:00: (four[place] (BROMFED 00 times Medical DM) 2-30-10 daily as Bran ch mg/5 mL needed for syrup Congestion /Allergies or Cough. bromphenira 2021-0 Yes [id number] 5mL Take 5 mL Univers mine-pseudo 1-26 by mouth 4 it y of ephedrine-D 00:00: (four[place] (BROMFED 00 times Medical DM) 2-30-10 daily as Bran ch mg/5 mL needed for syrup Congestion /Allergies or Cough. bromphenira 2021-0 Yes [id number] 5mL Take 5 mL Univers mine-pseudo 1-26 by mouth 4 it y of ephedrine-D 00:00: (four[place] (BROMFED 00 times Medical DM) 2-30-10 daily as Bran ch mg/5 mL needed for syrup Congestion /Allergies or Cough. bromphenira 2021-0 Yes [id number] 5mL Take 5 mL Univers mine-pseudo 1-26 by mouth 4 it y of ephedrine-D 00:00: (four[place] (BROMFED 00 times Medical DM) 2-30-10 daily as Bran ch mg/5 mL needed for syrup Congestion /Allergies or Cough. predniSONE 2021- No [id number] Take 4 Univers 10 mg 1-26 -07 tablets by ity of tablet 00:00: 05:59 mouth [place] 00 :00 daily for Medical 5 days, Branch THEN 3 tablets daily for 3 days, THEN 2 tablets daily for 2 days, THEN 1 tablet daily for 1 day. predniSONE 2021-2021- No [id number] Take 4 Univers 10 mg 1-26 -07 tablets by ity of tablet 00:00: 05:59 mouth [place] 00 :00 daily for Medical 5 days, Branch THEN 3 tablets daily for 3 days, THEN 2 tablets daily for 2 days, THEN 1 tablet daily for 1 day. doxycycline 2021-0 Yes [id number] 100mg Take 1 Univers monohydrate 1-13 capsule by it y of 100 mg 00:00: mouth 2 [place] capsule 00 (two) Medical times Branch daily. doxycycline 2-0 Yes [id number] 100mg Take 1 Univers monohydrate 1-13 capsule by it y of 100 mg 00:00: mouth 2 [place] capsule 00 (two) Medical times Branch daily. doxycycline 2-0 Yes [id number] 100mg Take 1 Univers monohydrate 1-13 capsule by it y of 100 mg 00:00: mouth 2 [place] capsule 00 (two) Medical times Branch daily. doxycycline 2-0 Yes [id number] 100mg Take 1 Univers monohydrate 1-13 capsule by it y of 100 mg 00:00: mouth 2 [place] capsule 00 (two) Medical times Branch daily. doxycycline 2021-0 Yes [id number] 100mg Take 1 Univers monohydrate 1-13 capsule by it y of 100 mg 00:00: mouth 2 [place] capsule 00 (two) Medical times Branch daily. clomiPHENE 2020-07 Yes clomiphene U nivers 50 mg 2-22 citrate 50 ity of tablet 20:08: mg tablet [place] [address] TAKE ONE Medical TABLET BY Branch MOUTH ONE TIME DAILY ANASTROZOLE 2020-07 Yes 20mg Take 20 mg Univers ORAL 2-22 by mouth. ity of 20:08: [address] tadalafiL 2020-07 Yes 20mg Take 20 mg Un quoc 20 mg 2-22 by mouth. ity of tablet 20:08: [address] clomiPHENE 2020-07 Yes clomiphene U nivers 50 mg 2-22 citrate 50 ity of tablet 20:08: mg tablet [place] [address] TAKE ONE Medical TABLET BY Branch MOUTH ONE TIME DAILY ANASTROZOLE 2020-07 Yes 20mg Take 20 mg Univers ORAL 2-22 by mouth. ity of 20:08: [address] tadalafiL 2020-07 Yes 20mg Take 20 mg Un quoc 20 mg 2-22 by mouth. ity of tablet 20:08: [address] clomiPHENE 2020-07 Yes clomiphene U nivers 50 mg 2-22 citrate 50 ity of tablet 20:08: mg tablet [place] [address] TAKE ONE Medical TABLET BY Branch MOUTH ONE TIME DAILY ANASTROZOLE 2020-07 Yes 20mg Take 20 mg Univers ORAL 2-22 by mouth. ity of 20:08: [address] tadalafiL 2020-07 Yes 20mg Take 20 mg Un quoc 20 mg 2-22 by mouth. ity of tablet 20:08: [address] clomiPHENE 2020-07 Yes clomiphene U nivers 50 mg 2-22 citrate 50 ity of tablet 20:08: mg tablet [place] [address] TAKE ONE Medical TABLET BY Branch MOUTH ONE TIME DAILY ANASTROZOLE 2020-07 Yes 20mg Take 20 mg Univers ORAL 2-22 by mouth. ity of 20:08: [address] tadalafiL 2020-07 Yes 20mg Take 20 mg Un quoc 20 mg 2-22 by mouth. ity of tablet 20:08: [address] clomiPHENE 2020-07 Yes clomiphene U nivers 50 mg 2-22 citrate 50 ity of tablet 20:08: mg tablet [place] [address] TAKE ONE Medical TABLET BY Branch MOUTH ONE TIME DAILY ANASTROZOLE 2020-07 Yes 20mg Take 20 mg Univers ORAL 2-22 by mouth. ity of 20:08: [address] tadalafiL 2020-07 Yes 20mg Take 20 mg Un quoc 20 mg 2-22 by mouth. ity of tablet 20:08: [address] clomiPHENE 2021- No clomiphene Lynn Citrate 50 1- 12-20 citrate 50 Se ybold MG oral 00:00: 00:00 mg tablet - Tablet 00 :00 TAKE ONE Externa TABLET BY l MOUTH ONE TIME DAILY Cetirizine 2021- No Lynn HCl (ZyrTEC 07-11 12-20 Seybold Allergy) 10 00:00: 00:00 - MG [...] Heart rate 2022-06-29 20:36:00 118 /min Lynn newell - External Body temperature 2022-06-29 20:36:00 37 Radha Venus ray Monteybold - External Respiratory rate 2022-06-29 20:36:00 16 /min Venus Lacy - External Body height 2022-06-29 20:36:00 180.3 cm Lynn bellboenrique - External Body weight 2022-06-29 20:36:00 196.861 kg Lynn Levine eybold - External BMI 2022-06-29 20:36:00 60.53 kg/m2 Lynn bellboenrique - External Systolic blood 2022-01-31 20:42:00 142 mm[Hg] Univer sity of pressure [place] [facility] Diastolic blood 2022-01-31 20:42:00 87 mm[Hg] Unive rsity of [facility] Heart rate 2022-01-31 20:41:00 94 /min Universi ty of [facility] Body temperature 2022-01-31 20:41:00 37.17 Radha Univ ersity of [facility] Respiratory rate 2022-01-31 20:41:00 20 /min Univ ersity of [place] [facility] Body height 2022-01-31 20:41:00 180.3 cm Universi ty of [place] [facility] Body weight 2022-01-31 20:41:00 187.789 kg Universi ty of [place] [facility] BMI 2022-01-31 20:41:00 57.74 kg/m2 Universi ty of [place] [facility] Oxygen saturation in 2022-01-31 20:41:00 97 /min University Arterial blood by [facility] Pulse oximetry Branch Systolic blood 2021-08-14 19:15:00 151 mm[Hg] Univer sity of pressure [place] [facility] Diastolic blood 2021-08-14 19:15:00 97 mm[Hg] Unive rsity of pressure [facility] Heart rate 2021-08-14 19:13:00 98 /min Universi ty of [place] [facility] Body height 2021-08-14 19:13:00 180.3 cm Universi ty of [place] [facility] Body weight 2021-08-14 19:13:00 173.444 kg Universi ty of [place] [facility] BMI 2021-08-14 19:13:00 53.33 kg/m2 Universi ty of [place] [facility] Oxygen saturation in 2021-08-14 19:13:00 96 /min University of Arterial blood by [facility] Pulse oximetry Branch Procedures This patient has no known procedures. Encounters Start End Encounter Admission Attending Care Care Encounter Source Date/Time Date/Time Type Type Clinicians Facility Department ID 2022-08-04 2022-08-04 Outpatient LYNN JAQUEZ [id number] Lynn 16:00:00 16:00:00 CHARLIE Seybol d 2022-07-21 2022-07-21 Outpatient LYNN REY [id number] Lynn 13:45:00 13:45:00 JOSE ALFREDO Seybol d 2022-07-16 2022-07-16 Outpatient LYNN REY [id number] Lynn 00:00:00 00:00:00 JOSE ALFREDO Seybol sarah 2022-07-14 2022-07-14 Outpatient LYNN REY [id number] Lynn 00:00:00 00:00:00 JOSE ALFREDO Seybol sarah 2022-07-12 2022-07-13 Emergency E HERNÁNDEZ, [facility] [id number] [facility] 15:16:00 01:16:00 RONA 2022-07-13 2022-07-13 Outpatient LYNN REY [id number] Lynn 00:00:00 00:00:00 JOSE ALFREDO Seybol sarah 2022-06-29 2022-06-29 Outpatient LYNN REY [id number] Lynn 14:45:00 14:45:00 JOSE ALFREDO Seybol sarah 2022-02-13 2022-02-13 Refill Johan [facility] [id number] Univers 00:00:00 00:00[facility]00 [facility] [id number] it y of [place] [id number] Vivek as VANDANA?BLEA [phone] [address] MEDICAL OFFICE BUILDING 2022-01-31 2022-01-31 Urgent Johan [facility] [id number] Univers 15:40:00 16:00:00 Care Maryann HEALTH [id number] it y of [place] [id number] Vivek as VANDANA?BLEA [phone] [address] MEDICAL OFFICE [facility] 2022-01-31 2022-01-31 Outpatient R JOHAN [facility] [id number] Univers 15:40:00 15:40:00 MARYANN ity of [facility] 2021-12-10 2021-12-10 Outpatient R TIKI JOSEPH [facility] [id number] Univers 13:30:00 13:30:00 TIKI JOSEPH i ty of [facility] 2021-09-01 2021-09-01 [facility] [id number] Univers 00:00:00 00:00:00 Tiki GLYNN [id number] i ty of [id number] [place] PROF[place] [id number] Mi traciekarin [address] 2021-08-14 2021-08-14 Outpatient R TIKI JOSEPH [facility] [id number] Univers 13:00:00 13:30:04 TIKI JOSEPH i ty [facility] 2021-08-14 2021-08-14 [facility] [id number] Univers 13:00:00 13:30:04 Visit Tiki GLYNN 350.1.13.10 i ty of [place] 4.2.7.2.686 [place] PROF[place] [id number] [address] 2021-08-14 2021-08-14 Outpatient R TIKI JOSEPH [facility] [id number] Univers 13:00:00 13:30:04 TIKI JOSEPH i ty of [facility] 2021-08-14 2021-08-14 Orders Doctor HERNANDEZ [id number] Univers 00:00:00 00:00:00 Only Unassigned, CH[place] 350.1.13.10 ity of [place] [facility] [id number] Vivek as [id number] [address] 2021-08-05 2021-08-05 Outpatient R PANTERA [facility] [id number] Univers 20:40:00 21:02:32 STACEY ity o f [facility] 2021-08-05 2021-08-05 Urgent Stacey Mott [facility] 1.2.840. [id number] Univers 20:40:00 21:02:32 Care PiotrTiffany HEALTH [id number] ity of [place] 4.2.7.2.686 Vivek as VANDANA?BLEA [phone] [facility] [address] [place] MEDICAL OFFICE [facility] 2021-08-05 2021-08-05 Telephone Provider, [facility] [id number] Univers 00:00:00 00:00:00 Ang HEALTH [id number] it y of Urgent Care [place] 4.2.7.2.686 [place] VANDANA?BLEA [phone] [facility] [address] [place] MEDICAL OFFICE [facility] 2021-07-28 2021-07-[address] [facility] 1.2.840.114 [id number] Univers 20:33:24 23:59:00 Encounter [employer] [id number] ity of [place] 4.2.7.2.686 Vivek as VANDANA?BLEA [phone] [facility] [address] [facility] 2021-07-28 2021-07-28 Outpatient R [facility] [id number] Univers 20:33:23 23:59:00 FRANCOISE ity o f [facility] 2021-07-28 2021-07-[address] [facility] [id number] Univers 20:33:23 23:59:00 Encounter [employer] [id number] ity of [place] 4.2.7.2.686 Vivek as VANDANA?BLEA [phone] [facility] [address] [place] MEDICAL OFFICE [facility] 2021-07-28 2021-07-[address] [facility] [id number] Univers 20:33:23 23:59:00 Encounter [employer] 350.1.13.10 ity of [place] 4.2.7.2.686 Vivek as VANDANA?BLEA [id number] Mi dickarin GONZALEZ [address] [place] MEDICAL OFFICE [facility] 2021-07-28 2021-07-28 Urgent Francoise Tam [facility] 1.2.840 .114 [id number] Univers 20:20:00 20:43:40 Care Green, Maryann HEALTH 350.1.13.10 [facility] [id number] Vivek as VANDANA?BLEA [id number] [address] MEDICAL OFFICE [facility] 2021-07-23 2021-07-23 Urgent Heidy Martinez [facility] 1.2.840.114 [id number] Univers 19:40:00 20:00:00 Care Iselin, [facility] [id number] ity of [place] 4.2.7.2.686 Vivek as VANDANA?BLEA [phone] [address] OFFICE [facility] 2021-07-23 2021-07-23 Outpatient R KING MARIAA [facility] [id number] Univers 19:40:00 19:40:00 [facility] [place] [facility] 2021-07-23 2021-07-23 Letter Provider, [facility] [id number] Univers 00:00:00 00:00:00 (Out) Ang HEALTH 350.1.13.10 it y of Urgent Care [place] 4.2.7.2.686 [place] VANDANA?BLEA [id number] [address] OFFICE [facility] 2021-07-02 2021-07-02 Telephone MARY Hollingsworth [id number] Univers 00:00:00 00:00:00 Dorene ARTEAGA 350.1.13.10 ity of HOSPITAL [id number] Vivek as [id number] [address] 2021-07-01 2021-07-01 Urgent [facility] 1.2.840.114 [id number] Univers 20:00:00 20:51:14 Care Maryann HEALTH [id number] it y of [place] 4.2.7.2.686 Vivek as VANDANA?BLEA [id number] [address] MEDICAL OFFICE BUILDING 2021-07-01 2021-07-01 Outpatient R JOHAN [facility] [id number] Univers 20:00:00 20:51:14 MARYANN perales [facility] Results This patient has no known results.
--- NOTE | 2022-07-16 15:33 | RAD REPORT ---
EXAM DESCRIPTION: US - UPPER EXTREMITY VENOUS UNILATE - 07/16/2022 3:14 pm CLINICAL HISTORY: Right arm pain and swelling COMPARISON: None. TECHNIQUE: Real-time sonographic evaluation of the right upper extremity deep venous systems was per formed. FINDINGS: Normal compressibility, flow augmentation, phasic flow and spontaneous flow are identified in the right upper extremity deep venous system. No intraluminal filling defects seen. Internal jugu lar and subclavian veins are normal as well. Thrombus is identifiable in the superficial cephalic vein. There is congestion and edema of the surro unding fatty tissues. IMPRESSION: Superficial venous thrombosis involving the right upper extremity superficial cephalic v ein. No deep venous thrombosis.
--- NOTE | 2022-07-16 15:53 | EDPHYS ---
Physician Documentation [facility] Name: Tommy Mcfarland Age: 47 yrs Sex: Male : 1975 Arrival Date: 07/16/2022 Time: 12:37 Bed 7 Private MD: ED Physician Fabian Valdez HPI: 07/16 19:29 This 47 yrs old Male presents to ER via Ambulatory with complaints of Arm Problem - kb swelling/redness. 19:34 the patient presents with a swollen area of the right bicep. Description: erythematous, kb swollen, warm. Onset: The symptoms/episode began/occurred yesterday. Possible cause(s): Believes it was due to an IV that was placed in the right AC a few days ago. Associated signs and symptoms: Pertinent positives: erythema, swelling. Modifying factors: the symptoms are alleviated by nothing, the symptoms are aggravated by pressure, touching. Severity of symptoms: At their worst the symptoms were moderate, in the emergency department the symptoms are unchanged. The patient has not experienced similar symptoms in the past. The patient has not recently seen a physician. Historical: - Allergies: 12:57 CEPHALOSPORINS; kb3 - Home Meds: 12:57 Advair Diskus 100-50 mcg/dose Inhl dsdv 1 puff 2 times per day [Active]; albuterol kb3 sulfate 90 mcg/actuation Inhl aebs 1 puff every 4-6 hours [Active]; Klonopin 1 mg Oral tab 1 tab 3 times per day [Active]; Adderall XR 25 mg Oral cp24 1 cap once daily [Active]; Nexium 40 mg Oral cpDR 1 cap once daily [Active]; anastrozole 1 mg oral tab 1 tab once daily [Active]; - PMHx: 12:57 Hypertensive disorder; kb3 - PSHx: 12:57 Appendectomy; Cholecystectomy; Tonsillectomy; kb3 - Immunization history:: Adult Immunizations up to date, Client reports receiving the 2nd dose of the Covid vaccine, Last tetanus immunization: up to date. - Social history:: Smoking status: Patient denies any tobacco usage or history of. ROS: 19:29 Constitutional: Negative for fever, chills, and weight loss. kb 19:29 Skin: Positive for erythema, swelling, of the right bicep. 19:29 All other systems are negative. Exam: 19:29 Constitutional: This is a well developed, well nourished patient who is awake, alert, kb and in no acute distress. Head/Face: Normocephalic, atraumatic. ENT: Moist Mucous membranes Cardiovascular: Regular rate and rhythm with a normal S1 and S2. No gallops, murmurs, or rubs. No pulse deficits. Respiratory: Respirations even and unlabored. No increased work of breathing. Talking in full sentences Abdomen/GI: Soft, non-tender. No distention MS/ Extremity: Pulses equal, no cyanosis. Neurovascular intact. Full, normal range of motion. Neuro: Awake and alert, GCS 15, oriented to person, place, time, and situation. Moves all extremities. Normal gait. Psych: Awake, alert, with orientation to person, place and time. Behavior, mood, and affect are within normal limits. 19:29 Skin: cellulitis, that is mild, on the right bicep. Vital Signs: 12:54 BP 187 / 92; Pulse 94; Resp 20; Temp 99.0; Pulse Ox 99% ; Weight 185.97 kg; Height 6 kb3 ft. 0 in. (182.88 cm); Pain 4/10; 16:19 BP 167 / 87; Pulse 90; Resp 18; Temp 98.9; Pulse Ox 100% on R/A; ph 12:54 Body Mass Index 55.61 (185.97 kg, 182.88 cm) kb3 MDM: 14:06 Patient medically screened. kb 15:51 Data reviewed: vital signs, nurses notes. Data interpreted: Pulse oximetry: on room air kb is 99 %. Interpretation: normal. Counseling: I had a detailed discussion with the patient and/or guardian regarding: the historical points, exam findings, and any diagnostic results supporting the discharge/admit diagnosis, radiology results, the need for outpatient follow up, a family practitioner, to return to the emergency department if symptoms worsen or persist or if there are any questions or concerns that arise at home. 19:35 Differential diagnosis: abscess, cellulitis, Thrombus. ED course: History obtained kb from: Patient . 07/16 14:15 Order name: US Extremity Venous Unilateral Ltd kb 07/16 14:19 Order name: UPPER EXTREMITY VENOUS UNILATE; Complete Time: 15:37 EDMS Administered Medications: No medications were administered Disposition: 16:14 Co-signature as Attending Physician, Fabian Valdez DO I was immediately available on-site ms3 in the Emergency Department for consultation in the care of the patient. Disposition Summary: 07/16/22 15:53 Discharge Ordered Location: Home kb Condition: Stable kb Diagnosis - Superficial venous thrombus right upper extremity kb - Cellulitis of right upper limb kb Followup: kb - With: Emergency Department - When: As needed - Reason: Worsening of condition Followup: kb - With: Private Physician - When: 2 - 3 days - Reason: Recheck today's complaints, Continuance of care, Re-evaluation by your physician Discharge Instructions: - Discharge Summary Sheet kb - Cellulitis, Adult, [id number] kb Forms: - Medication Reconciliation Form kb - Thank You Letter kb - Antibiotic Education kb - Prescription Opioid Use kb Prescriptions: - Tramadol 50 mg Oral Tablet - take 1 tablet by ORAL route every 8 hours as needed; 12 tablet; Refills: 0, kb Product Selection Permitted - Bactrim DS 800-160 mg Oral Tablet - take 1 tablet by ORAL route every 12 hours for 10 days; 20 tablet; Refills: 0, kb Product Selection Permitted Signatures: Dispatcher [employer] Kiana Streeter, SLATE HAND[employer]ER-C [employer]-Fabian Neri DO DO ms3 Arianna Sheridan, RN RN kb3
--- NOTE | 2022-07-16 15:53 | ER ---
Nurse's Notes [facility] Name: Tommy Mcfarland Age: 47 yrs Sex: Male : 1975 Arrival Date: 07/16/2022 Time: 12:37 Bed 7 Private MD: Diagnosis: Superficial venous thrombus right upper extremity;Cellulitis of right upper limb Presentation: 07/16 12:54 Chief complaint: Patient states: He was in this ER on Tuesday and had a RAC IV placed kb3 that was blown on Tuesday morning. PT reports right upper arm has been fine until yesterday when he began to experience redness and swelling. Coronavirus screen: Vaccine status: Patient reports receiving the 2nd dose of the covid vaccine. Client denies travel out of the [place] in the last 14 days. Ebola Screen: Patient negative for fever greater than or equal to 101.5 degrees Fahrenheit, and additional compatible Ebola Virus Disease symptoms Patient denies exposure to infectious person. Patient denies travel to an Ebola-affected area in the 21 days before illness onset. Initial Sepsis Screen: Does the patient meet any 2 criteria? No. Patient's initial sepsis screen is negative. Does the patient have a suspected source of infection? No. Patient's initial sepsis screen is negative. Risk Assessment: Do you want to hurt yourself or someone else? Patient reports no desire to harm self or others. Onset of symptoms was July 15, 2022. 12:54 Method Of Arrival: Ambulatory kb3 12:54 Acuity: HEIDI 3 kb3 Triage Assessment: 12:57 General: Appears in no apparent distress. obese, Behavior is cooperative, agitated. kb3 Pain: Complains of pain in right bicep Pain does not radiate. Pain currently is 4 out of 10 on a pain scale. Historical: - Allergies: 12:57 CEPHALOSPORINS; kb3 - Home Meds: 12:57 Advair Diskus 100-50 mcg/dose Inhl dsdv 1 puff 2 times per day [Active]; albuterol kb3 sulfate 90 mcg/actuation Inhl aebs 1 puff every 4-6 hours [Active]; Klonopin 1 mg Oral tab 1 tab 3 times per day [Active]; Adderall XR 25 mg Oral cp24 1 cap once daily [Active]; Nexium 40 mg Oral cpDR 1 cap once daily [Active]; anastrozole 1 mg oral tab 1 tab once daily [Active]; - PMHx: 12:57 Hypertensive disorder; kb3 - PSHx: 12:57 Appendectomy; Cholecystectomy; Tonsillectomy; kb3 - Immunization history:: Adult Immunizations up to date, Client reports receiving the 2nd dose of the Covid vaccine, Last tetanus immunization: up to date. - Social history:: Smoking status: Patient denies any tobacco usage or history of. Screenin:18 [facility] ED Fall Risk Assessment (Adult) Score/Fall Risk Level 0 - 2 = Low Risk hb Oriented to surroundings, Maintained a safe environment. Abuse screen: Denies threats or abuse. Denies injuries from another. Nutritional screening: No deficits noted. Tuberculosis screening: No symptoms or risk factors identified. Assessment: 14:43 General: Appears in no apparent distress. comfortable, obese, well groomed, Behavior is ph calm, cooperative, appropriate for age, Reports fatigue for 12-24 hours. Pain: Complains of pain in right bicep. Neuro: Level of Consciousness is awake, alert, obeys commands, Oriented to person, place, time, situation. Cardiovascular: Capillary refill < 3 seconds in bilateral fingers Patient's skin is warm and dry. Respiratory: Airway is patent Respiratory effort is even, unlabored. Derm: Skin is fragile, Skin is pink, warm \T\ dry. Musculoskeletal: Circulation, motion, and sensation intact. Range of motion: intact in all extremities, Swelling present in right bicep with redness and warmth noted. 16:19 Reassessment: Patient appears in no apparent distress at this time. Patient and/or ph family updated on plan of care and expected duration. Pain level reassessed. Patient is alert, oriented x 3, equal unlabored respirations, skin warm/dry/pink. Pt d/c home. Vital Signs: 12:54 BP 187 / 92; Pulse 94; Resp 20; Temp 99.0; Pulse Ox 99% ; Weight 185.97 kg; Height 6 kb3 ft. 0 in. (182.88 cm); Pain 4/10; 16:19 BP 167 / 87; Pulse 90; Resp 18; Temp 98.9; Pulse Ox 100% on R/A; ph 12:54 Body Mass Index 55.61 (185.97 kg, 182.88 cm) kb3 ED Course: 12:37 Patient arrived in ED. as 12:57 Triage completed. kb3 12:57 Arm band placed on right wrist. kb3 13:26 Kiana Wang FNP-C is [facility]. kb 13:26 Fabian Valdez DO is Attending Physician. kb 14:02 Sandra Brothers, RN is Primary Nurse. ph 14:44 Patient has correct armband on for positive identification. Bed in low position. Call ph light in reach. Side rails up X 1. 15:15 UPPER EXTREMITY VENOUS UNILATE In Process Unspecified. EDMS 16:19 No provider procedures requiring assistance completed. Patient did not have IV access ph during this emergency room visit. Patient maintains SpO2 saturation greater than 95% on room air. Administered Medications: No medications were administered Medication: 14:44 VIS not applicable for this client. ph Outcome: 15:53 Discharge ordered by . kb 16:20 Discharged to home ambulatory. ph 16:20 Condition: good 16:20 Discharge instructions given to patient, Instructed on discharge instructions, follow up and referral plans. medication usage, Demonstrated understanding of instructions, follow-up care, medications, Prescriptions given X 2. 16:21 Patient left the ED. ph Signatures: Dispatcher [employer] EDWA Kiana Wang FNP-C [employer]Gwendolyn Chavez as Sandra Brothers, RN RN Kimber Barajas, ANDRES RN Arianna Sheridan RN RN kb3
[2022-07-16 16:40] VITALS: BP 167/87; TEMP 98.9; O2SAT 100
== END 2022-07-16 16:21 | disposition home or self-care (01) ==
LOC: ER 12:36
DX: I82.611 Acute embolism and thrombosis of superficial veins of right upper extremity (principal); L03.113 Cellulitis of right upper limb; I10 Essential (primary) hypertension; Z88.3 Allergy status to other anti-infective agents
CPT/HCPCS: 93971; 99284

== ENCOUNTER 2023-01-13 12:09 | Emergency (ER) | payer OTHER ==
--- OUTSIDE RECORDS SUMMARY | 2023-01-13 12:17 | XMS REPORT | Continuity of Care Document ---
:1975 Author Organization [facility] t Address [address] [place] [address] Care Team Providers Name Role Phone Pcp, Patient Does Not Have A Primary Care Physician [phone] MARY VELAZQUEZ Attending Clinician Unavailable JOSE ALFREOD REY Attending Clinician Unavailable KATIE GOMEZ Attending Clinician Unavailable CHARLIE JAQUEZ Attending Clinician Unavailable AYE LEWIS Attending Clinician Unavailable VISIT, NURSE MPB Attending Clinician Unavailable Mary Velazquez Attending Clinician SONA LOERA Attending Clinician Unavailable LUPE MANUEL Attending Clinician Unavailable Tiki Joseph DO Attending Clinician King MARIAA MD, James C Attending Clinician Unknown, Attending Attending Clinician Unavailable HEIDY MARTINEZ III Attending Clinician Unavailable Doctor Unassigned, [place] Attending Clinician Unavailable Rona Hernádnez Attending Clinician RONA HERNÁNDEZ Attending Clinician Unavailable Telly Martins Attending Clinician TELLY PRADO Attending Clinician Unavailable TIKI JOSEPH Attending Clinician Unavailable TIKI JOSEPH Attending Clinician Unavailable JADA MOTT Attending Clinician Unavailable Jada Davila Attending Clinician Tiffany Saldaña MD Attending Clinician Provider, [facility] Attending Clinician Unavailable Starla Cruz Attending Clinician STARLA TAM Attending Clinician Unavailable Darrick CAMPOS, Dorene Husain Attending Clinician Unavailable Payers Payer Name Policy Type Policy Number Effective Date Expiration Date Abner [facility] 14 [id number] 2022 00:00:00 Problems Condition Condition Condition Status Onset Resolution Last Treating Co mments Source Name Details Category Date Date Treatment Clinician Date R10.84 R10.84 Diagnosis Active 2023-01-12 Me moria GENERALIZE GENERALIZE 6- 13:28:00 l D D 00:00: Mina ABDOMINAL ABDOMINAL 00 PAIN PAIN Active 01/03/2023 [facility] Acute pain Acute pain Disease Active K elsey of right of right 6-14 Seybol d knee knee 00:00: - 00 Externa l K21.9 K21.9 Diagnosis Active 2022-11-19 Mem oria GASTRO-ESO GASTRO-ESO 5-11 08:28:00 l PHAGEAL PHAGEAL 00:00: Mina REFLUX REFLUX 00 DISEASE W DISEASE W Active 11/18/2022 [facility] Hiatal Hiatal Disease Active Lynn hernia hernia 1-11 Seybold with GERD with GERD 00:00: - 00 Externa l HEART BURN HEART Diagnosis Active 2022-07-12 Memoria BURN 1-02 20:21:00 l Active 00:00: Mina 07/12/2022 00 [facility] History of History of Disease Active 2021-07 K elsey gastric gastric 2-20 Seybold surgery surgery 00:00: - 00 Externa l Attention Attention Disease Active 2021-07 Sandy sey deficit deficit 2-20 Seybold hyperactiv hyperactiv 00:00: - ity ity 00 Externa disorder disorder l (ADHD), (ADHD), 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 Other male Other male Disease Active 2021-07 K elsey erectile erectile 2-20 Seybol d dysfunctio dysfunctio 00:00: - n n 00 Externa l SKYE SKYE Disease Active 2021-07 Lynn (obstructi (obstructi 2-20 Se ybold ve sleep ve sleep 00:00: - apnea) apnea) 00 Externa l Seasonal Seasonal Disease Active 2021-07 Kelse y allergic allergic 2-20 Seybol d rhinitis rhinitis 00:00: - due to due to 00 Externa pollen pollen l Elevated Elevated Disease Active 2021-07 Kelse y BP without BP without 2-20 Se ybold diagnosis diagnosis 00:00: - of of 00 Externa hypertensi hypertensi l on on Morbid Morbid Disease Active 2021-07 Lynn obesity obesity 2-20 Seybold 00:00: - 00 Externa l 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 Problem Active 2023-01-08 Memoria esophagus esophagus 14:06:29 l (disorder) (disorder) He rmann Active Problem 01/08/2023 [facility] Cough Cough Problem Active 2023-01-08 Memor ia (finding) (finding) 14:06:29 l Active Mina Problem 01/08/2023 [facility] Gastroesop Gastroeso Problem Active 2023-01-08 Memoria hageal phageal 14:06:29 l reflux reflux Mina disease disease (disorder) (disorder) Active Problem 01/08/2023 [facility] Nausea and Nausea Problem Active 2023-01-08 Memoria vomiting and 14:06:29 l (disorder) vomiting Herm destiny (disorder) Active Problem 01/08/2023 [facility] Allergies, Adverse Reactions, Alerts Allergy Allergy Status [...] 00:00: [place] reaction 00 Medical s Branch Cephalos Propensi Active Cough 2020-07 Univer s porins ty to 2-22 ity of adverse 00:00: [place] reaction 00 Medical s Branch Cephalex Drug Active Other Other Lynn in Intolera 7-15 reaction( Seybo ld nce 00:00: s): Other - 00 (See Externa Comments) l "Shaky and didn't feel well""Sha ky and didn't feel well" Keflex Keflex Active Memoria [facility] Social History Social Habit Start Date Stop Date Quantity Comments Source Gender identity Lynn alfredo - External Sexual orientation Lynn Lacy - External Alcohol intake 2022-12-22 2022-12-22 1.43 /d Lynn Lloyd bold - 00:00:00 00:00:00 External Exposure to 2022-08-10 2022-08-20 Not sure University SARS-CoV-2 (event) 00:00:00 16:44:00 [facility] History of Social 2022-06-29 2022-06-29 Lynn Lacy - function 00:00:00 00:00:00 External Tobacco use and 2021-07-01 2021-07-01 Smokeless Universit y of exposure 00:00:00 00:00:00 tobacco non-user [facility] [place] [facility] Sex Ass[birth year] At [birth year] Lynn Monte ybold - 00:00:00 00:00:00 External Smoking Status Start Date Stop Date Source Tobacco smoking status [facility] Medications Ordered Filled Start Stop Current Ordering Indication Dosage Frequency Signature Comments Components Source Medication Medication Date Date Medication? Clinician (SIG) Name Name Ondansetron Yes mariaelenadansemilia Bailey (ZOFRAN) 8 6-14 n HCl 8 mg Sey bold MG oral 15:40: tablet - tablet 30 Externa l Mupirocin 0 Yes [id number] Apply 1 Lynn (BACTROBAN) 12-22 applicatio Se ybold 2 % apply 00:00: n. - externally 00 topically Exte rna Ointment 2 times l daily Doxycycline 2022-0 3- Yes [id number] 100mg Take 1 Lynn Hyclate 100 - 06- capsule Seyb old MG oral 00:00: 04:59 (100 mg - Capsule 00 :00 total) by Externa mouth 2 l times daily for 7 days Amphetamine 2022-0 Yes [id number] 20mg Take 1 Lynn -Dextroamph 5-25 tablet (20 Se ybold etamine 20 00:00: mg total) - MG oral 00 by mouth 3 Polys[employer] Tech a Tablet times l daily Pantoprazol 0 Yes [id number] TAKE 1 Lynn e Sodium 40 5-21 TABLET BY Sey bold MG oral 00:00: MOUTH - Tablet 00 TWICE A Externa Delayed DAY l Response Anastrozole 0 Yes 1mg Take 1 Venus ey 1 MG oral 5-01 tablet (1 Seybo ld Tablet 00:00: mg total) - 00 by mouth Externa twice a l week Anastrozole 0 Yes 1mg Take 1 Venus ey 1 MG oral 5-01 tablet (1 Seybo ld Tablet 00:00: mg total) - 00 by mouth Externa twice a l week clomiPHENE 2022-0 Yes 50mg Take 1 Kelse y Citrate 50 4-28 tablet (50 Sey bold MG oral 00:00: mg total) - Tablet 00 by mouth Externa daily l Tadalafil 5 2022-0 Yes 5mg QD Take 1 Venus ey MG oral 4-28 tablet (5 Seybold Tablet 00:00: mg total) - 00 by mouth Externa daily as l needed for erectile dysfunctio n clomiPHENE 2022-0 Yes 50mg Take 1 Kelse y Citrate 50 4-28 tablet (50 Sey bold MG oral 00:00: mg total) - Tablet 00 by mouth Externa daily l Tadalafil 5 2022-0 2023- No 5mg QD Take 1 Sandy sey MG oral 4-28 06-14 tablet (5 Seybol d Tablet 00:00: 00:00 mg total) - 00 :00 by mouth Externa daily as l needed for erectile dysfunctio n Amphetamine 2022-0 Yes [id number] 20mg Take 1 Lynn -Dextroamph 4-24 tablet (20 Se ybold etamine 20 00:00: mg total) - MG oral 00 by mouth 3 Polysom Tech a Tablet times l daily Tadalafil 5 2022-0 Yes 5mg Take 1 Venus ey MG oral 4-18 tablet (5 Seybold Tablet 00:00: mg total) - 00 by mouth Externa daily l Tadalafil 5 2022-0 Yes 5mg Take 1 Venus ey MG oral 4-18 tablet (5 Seybold Tablet 00:00: mg total) - 00 by mouth Externa daily l tadalafil 5 2022-0 Yes 5 mg = 1 Me moria mg oral 4-13 tab, PO, l tablet 15:44: Daily, 0 [place] 00 Refill(s) tadalafil 5 2022-0 Yes 5 mg = 1 Me moria mg oral 4-13 tab, PO, l tablet 15:44: Daily, 0 Mnia 00 Refill(s) tadalafil 5 2022-0 Yes 5 mg = 1 Me moria mg oral 4-13 tab, PO, l tablet 15:44: Daily, 0 [place] 00 Refill(s) pantoprazol 2022-0 Yes 40 mg = 1 M emoria e 40 mg 4-13 tab, PO, l oral 15:43: Daily, 0 [place] enteric 00 Refill(s) coated tablet Clomid 50 2022-0 Yes 50 mg = 1 Mem oria mg oral 4-13 tab, PO, l tablet 15:43: Daily, # 5 Gracy nn 00 tab, 0 Refill(s) anastrozole 2022-0 Yes diclo, PO, Memoria 1 mg oral 4-13 Daily, 0 l tablet 15:43: Refill(s) Roby n 00 diclofenac 2022-0 Yes 0 Memoria sodium 1% 4-13 Refill(s) l topical 15:43: Mina cream 00 Clomid 50 2022-0 Yes 50 mg = 1 Mem oria mg oral 4-13 tab, PO, l tablet 15:43: Daily, # 5 Gracy nn 00 tab, 0 Refill(s) pantoprazol 2022-0 Yes 40 mg = 1 M emoria e 40 mg 4-13 tab, PO, l oral 15:43: Daily, 0 [place] enteric 00 Refill(s) coated tablet Clomid 50 2022-0 Yes 50 mg = 1 Mem oria mg oral 4-13 tab, PO, l tablet 15:43: Daily, # 5 Gracy nn 00 tab, 0 Refill(s) anastrozole 2022-0 Yes diclo, PO, Memoria 1 mg oral 4-13 Daily, 0 l tablet 15:43: Refill(s) Roby n 00 diclofenac 2022-0 Yes 0 Memoria sodium 1% 4-13 Refill(s) l topical 15:43: Mina cream 00 pantoprazol 2022-0 Yes 40 mg = 1 M emoria e 40 mg 4-13 tab, PO, l oral 15:43: Daily, 0 [place] enteric 00 Refill(s) coated tablet Clomid 50 2022-0 Yes 50 mg = 1 Mem oria mg oral 4-13 tab, PO, l tablet 15:43: Daily, # 5 Gracy nn 00 tab, 0 Refill(s) anastrozole 2022-0 Yes diclo, PO, Memoria 1 mg oral 4-13 Daily, 0 l tablet 15:43: Refill(s) Roby n 00 diclofenac 2022-0 Yes 0 Memoria sodium 1% 4-13 Refill(s) l topical 15:43: Mina cream 00 Clomid 50 2022-0 Yes 50 mg = 1 Mem oria mg oral 4-13 tab, PO, l tablet 15:43: Daily, # 5 Gracy nn 00 tab, 0 Refill(s) Adderall 3-0 Yes 7.5 mg = 1 Mem oria 7.5 mg oral 4-13 tab, PO, l tablet 15:42: BID, 0 [place] 00 Refill(s) Adderall 3-0 Yes 7.5 mg = 1 Mem oria 7.5 mg oral 4-13 tab, PO, l tablet 15:42: BID, 0 Mina 00 Refill(s) Adderall 3-0 Yes 7.5 mg = 1 Mem oria 7.5 mg oral 4-13 tab, PO, l tablet 15:42: BID, 0 Mina 00 Refill(s) Pantoprazol 2022-0 Yes [id number] TAKE 1 Lynn e Sodium 40 4-12 TABLET BY Sey bold MG oral 00:00: MOUTH - Tablet 00 TWICE A Externa Delayed DAY l Response albuterol 2022-0 Yes [id number] TAKE 2 Univers 90 2-16 6 PUFFS BY ity of mcg/actuati 00:00: MOUTH [place] on inhaler 00 EVERY 6 Medica l HOURS Branch NEEDED FOR WHEEZE OR FOR SHORTNESS OF BREATH sulfamethox 2022-0 Yes [id number] 1{tbl} Take 1 Univers azole-trime 2-10 [id number] tablet by i ty of thoprim 00:00: mouth in [place] (BACTRIM) 00 the Medical 400-80 mg morning Branch per tablet and 1 tablet in the evening. sulfamethox 2022-0 Yes [id number] 1{tbl} Take 1 Univers azole-trime 2-10 [id number] tablet by i ty of thoprim 00:00: mouth in [place] (BACTRIM) 00 the Medical 400-80 mg morning Branch per tablet and 1 tablet in the evening. Ondansetron 2022-0 Yes ondansetro Lynn (ZOFRAN) 8 2-08 n HCl 8 mg Sey bold MG oral 14:30: tablet - tablet 44 Externa l Anastrozole 2022-0 Yes [id number] Twice per Lynn 1 MG oral 2-08 week Seybold Tablet 00:00: - 00 Externa l Anastrozole 2022-0 Yes [id number] Twice per Lynn 1 MG oral 2-08 week Seybold Tablet 00:00: - 00 Externa l Ondansetron 2022-0 Yes ondansetro Lynn (ZOFRAN) 8 1-25 n HCl 8 mg Sey bold MG oral 15:49: tablet - tablet 15 Externa l Methylpheni 2022-0 Yes [id number] 36mg Take 1 Lynn date HCl 1-25 tablet (36 Seybo ld (Concerta) 00:00: mg total) - 36 MG oral 00 by mouth Exter na Tab CR every l morning Tramadol 2022-0 Yes [id number] 50mg Q.5D Take 1 Sandy sey HCl 1-23 tablet (50 Seybold (ULTRAM) 50 00:00: mg total) - MG oral 00 by mouth 2 Polysom Tech a Tablet times l daily as needed for pain Tramadol 2022-0 Yes [id number] 50mg Q.5D Take 1 Sandy sey HCl 1-23 tablet (50 Seybold (ULTRAM) 50 00:00: mg total) - MG oral 00 by mouth 2 Polysom Tech a Tablet times l daily as needed for pain Tramadol 2022-0 Yes [id number] 50mg Q.5D Take 1 Sandy sey HCl 1-23 tablet (50 Seybold (ULTRAM) 50 00:00: mg total) - MG oral 00 by mouth 2 Polysom Tech a Tablet times l daily as needed for pain Esomeprazol 2022-0 2022- No 20mg Take 20 mg Lynn e Magnesium 1-11 -11 by mouth Sey bold 20 MG oral 14:11: 00:00 - Delayed 41 :00 Externa Release l Capsule Ondansetron 0 Yes ondansetro Lynn (ZOFRAN) 8 1-11 n HCl 8 mg Sey bold MG oral 13:59: tablet - tablet 43 Externa l Pantoprazol 2022-0 Yes [id number] 40mg Take 1 Lynn e Sodium 40 1-11 tablet (40 Se ybold MG oral 00:00: mg total) - Tablet 00 by mouth 2 Externa Delayed times l Response daily Pantoprazol 2022-0 Yes [id number] 40mg Take 1 Lynn e Sodium 40 1-11 tablet (40 Se ybold MG oral 00:00: mg total) - Tablet 00 by mouth 2 Externa Delayed times l Response daily Tramadol 2022-0 Yes [id number] 50mg Q.5D Take 1 Sandy sey HCl 50 MG 1-11 tablet (50 Seyb old oral Tablet 00:00: mg total) - 00 by mouth 2 Externa times l daily as needed for pain TRIMETHOPRI 2022-0 Yes TAKE ONE Ke lsey M-SULFAMETH 1-06 (1) Seybold OXAZOLE 00:00: TABLET(S) - 800-160 MG 00 BY MOUTH Exter na oral Tablet EVERY l TWELVE HOURS FOR 10 DAYS. TRIMETHOPRI 2022-0 Yes TAKE ONE Ke lsey M-SULFAMETH 1-06 (1) Seybold OXAZOLE 00:00: TABLET(S) - 800-160 MG 00 BY MOUTH Exter na oral Tablet EVERY l TWELVE HOURS FOR 10 DAYS. Tramadol 2022- No 1{tbl} Q.[id number] Take 1 Lynn HCl 50 MG 07-16 [id number] tablet by Seybold oral Tablet 00:00: 00:00 3D mouth - 00 :00 every 8 Externa hours as l needed Zofran 4 mg 2022-0 Yes 4 mg = 1 Me moria oral tablet 1-03 tab, PO, l 07:09: BID, X 5 Mina 00 day, # 10 tab, 0 Refill(s) Zofran 4 mg 2022-0 Yes 4 mg = 1 Me moria oral tablet 1-03 tab, PO, l 07:09: BID, X 5 Mina 00 day, # 10 tab, 0 Refill(s) Zofran 4 mg 0 Yes 4 mg = 1 Me moria oral tablet 1-03 tab, PO, l 07:09: BID, X 5 [place] 00 day, # 10 tab, 0 Refill(s) Amphetamine 2021-07 No 20mg Take 20 mg Lynn -Dextroamph [...] Externa Release l Capsule Cetirizine 2021-07 Yes [id number] 10mg Take 1 K elsey HCl (ZyrTEC 2-20 capsule Seybo ld Allergy) 10 00:00: (10 mg - MG oral 00 total) by Externa Capsule mouth l daily Fluticasone 2021-07 Yes [id number] 1{puff} Inhale 1 Lynn -Salmeterol 2-20 puff into Sey bold 250-50 00:00: the lungs - MCG/ACT 00 every 12 Externa inhalation hours l AEROSOL POWDER, BREATH ACTIVATED Albuterol 2021-07 Yes [id number] 2{puff} Q.25D Inhale 2 Lynn HFA 108 (90 2-20 puffs into Se ybold Base) 00:00: the lungs - MCG/ACT IN 00 every 6 Polysom Tech a AERS hours as l needed for wheezing clomiPHENE 2021-07 Yes [id number] 50mg Take 1 Lynn Citrate 50 2-20 tablet (50 Sey bold MG oral 00:00: mg total) - Tablet 00 by mouth Externa daily l Anastrozole 2021-07 Yes [id number] Twice per Lynn 1 MG oral 2-20 week Seybold Tablet 00:00: - 00 Externa l FLUTICASONE 2021-07 Yes [id number] 50ug Use 1 K elsey PROPIONATE, 2-20 spray (50 Sey bold NASAL, 50 00:00: mcg total) - MCG/ACT 00 in each Externa nasal nostril l Suspension daily Cetirizine 2021-07 Yes [id number] 10mg Take 1 K elsey HCl (ZyrTEC 2-20 capsule Seybo ld Allergy) 10 00:00: (10 mg - MG oral 00 total) by Externa Capsule mouth l daily Fluticasone 2021-07 Yes [id number] 1{puff} Inhale 1 Lynn -Salmeterol 2-20 puff into Sey bold 250-50 00:00: the lungs - MCG/ACT 00 every 12 Externa inhalation hours l AEROSOL POWDER, BREATH ACTIVATED Albuterol 2021-07 Yes [id number] 2{puff} Q.25D Inhale 2 Lynn HFA 108 (90 2-20 puffs into Se ybold Base) 00:00: the lungs - MCG/ACT IN 00 every 6 Polysom Tech a AERS hours as l needed for wheezing clomiPHENE 2021-07 Yes [id number] 50mg Take 1 Lynn Citrate 50 2-20 tablet (50 Sey bold MG oral 00:00: mg total) - Tablet 00 by mouth Externa daily l FLUTICASONE 2021-07 Yes [id number] 50ug Use 1 K elsey PROPIONATE, 2-20 spray (50 Sey bold NASAL, 50 00:00: mcg total) - MCG/ACT 00 in each Externa nasal nostril l Suspension daily Cetirizine 2021-07 Yes [id number] 10mg Take 1 K elsey HCl (ZyrTEC 2-20 capsule Seybo ld Allergy) 10 00:00: (10 mg - MG oral 00 total) by Externa Capsule mouth l daily Fluticasone 2021-07 Yes [id number] 1{puff} Inhale 1 Lynn -Salmeterol 2-20 puff into Sey bold 250-50 00:00: the lungs - MCG/ACT 00 every 12 Externa inhalation hours l AEROSOL POWDER, BREATH ACTIVATED Albuterol 2021-07 Yes [id number] 2{puff} Q.25D Inhale 2 Lynn HFA 108 (90 2-20 puffs into Se ybold Base) 00:00: the lungs - MCG/ACT IN 00 every 6 Polysom Tech a AERS hours as l needed for wheezing clomiPHENE 2021-07 Yes [id number] 50mg Take 1 Lynn Citrate 50 2-20 tablet (50 Sey bold MG oral 00:00: mg total) - Tablet 00 by mouth Externa daily l FLUTICASONE 2021-07 Yes [id number] 50ug Use 1 K elsey PROPIONATE, 2-20 spray (50 Sey bold NASAL, 50 00:00: mcg total) - MCG/ACT 00 in each Externa nasal nostril l Suspension daily Cetirizine 2021-07 Yes [id number] 10mg Take 1 K elsey HCl (ZyrTEC 2-20 capsule Seybo ld Allergy) 10 00:00: (10 mg - MG oral 00 total) by Externa Capsule mouth l daily predniSONE 2021-07 Yes [id number] 10mg Take 1 K elsey (DELTASONE) 2-20 tablet (10 Se ybold 10 MG oral 00:00: mg total) - tablet 00 by mouth Externa daily l Fluticasone 2021-07 Yes [id number] 1{puff} Inhale 1 Lynn -Salmeterol 2-20 puff into Sey bold 250-50 00:00: the lungs - MCG/ACT 00 every 12 Externa inhalation hours l AEROSOL POWDER, BREATH ACTIVATED Albuterol 2021-07 Yes [id number] 2{puff} Q.25D Inhale 2 Lynn HFA 108 (90 2-20 puffs into Se ybold Base) 00:00: the lungs - MCG/ACT IN 00 every 6 Polysom Tech a AERS hours as l needed for wheezing clomiPHENE 2021-07 Yes [id number] 50mg Take 1 Lynn Citrate 50 2-20 tablet (50 Sey bold MG oral 00:00: mg total) - Tablet 00 by mouth Externa daily l Anastrozole 2021-07 Yes [id number] Twice per Lynn 1 MG oral 2-20 week Seybold Tablet 00:00: - 00 Externa l Amphetamine 2021-07 Yes [id number] 20mg Take 1 Lynn -Dextroamph 2-20 tablet (20 Se ybold etamine 20 00:00: mg total) - MG oral 00 by mouth 3 Polysom Tech a Tablet times l daily FLUTICASONE 2021-07 Yes [id number] 50ug Use 1 K elsey PROPIONATE, 2-20 spray (50 Sey bold NASAL, 50 00:00: mcg total) - MCG/ACT 00 in each Externa nasal nostril l Suspension daily Cetirizine 2021-07 Yes [id number] 10mg Take 1 K elsey HCl (ZyrTEC 2-20 capsule Seybo ld Allergy) 10 00:00: (10 mg - MG oral 00 total) by Externa Capsule mouth l daily Fluticasone 2021-07 Yes [id number] 1{puff} Inhale 1 Lynn -Salmeterol 2-20 puff into Sey bold 250-50 00:00: the lungs - MCG/ACT 00 every 12 Externa inhalation hours l AEROSOL POWDER, BREATH ACTIVATED Albuterol 2021-07 Yes [id number] 2{puff} Q.25D Inhale 2 Lynn HFA 108 (90 2-20 puffs into Se ybold Base) 00:00: the lungs - MCG/ACT IN 00 every 6 Polysom Tech a AERS hours as l needed for wheezing clomiPHENE 2021-07 Yes [id number] 50mg Take 1 Lynn Citrate 50 2-20 tablet (50 Sey bold MG oral 00:00: mg total) - Tablet 00 by mouth Externa daily l Anastrozole 2021-07 Yes [id number] Twice per Lynn 1 MG oral 2-20 week Seybold Tablet 00:00: - 00 Externa l Amphetamine 2021-07 Yes [id number] 20mg Take 1 Lynn -Dextroamph 2-20 tablet (20 Se ybold etamine 20 00:00: mg total) - MG oral 00 by mouth 3 Polysom Tech a Tablet times l daily FLUTICASONE 2021-07 Yes [id number] 50ug Use 1 K elsey PROPIONATE, 2-20 spray (50 Sey bold NASAL, 50 00:00: mcg total) - MCG/ACT 00 in each Externa nasal nostril l Suspension daily predniSONE 2021-07- No [id number] 10mg Take 1 Lynn (DELTASONE) 2-20 01-11 tablet (10 S eybold 10 MG oral 00:00: 00:00 mg total) - tablet 00 :00 by mouth Externa daily l Azithromyci 2021-07- No [id number] Take 2 Lynn n 250 MG 2-20 [...] Tablet 00:00: daily - 00 Externa l Tadalafil 5 2021-07 Yes 5mg Take 5 mg K elsey MG oral 0-18 by mouth Seybold Tablet 00:00: daily - 00 Externa l Tadalafil 5 2021-07 Yes 5mg Take 5 mg K elsey MG oral 0-18 by mouth Seybold Tablet 00:00: daily - 00 Externa l anastrozole Yes anastrozol Univers 1 mg tablet 7-24 e 1 mg ity of 15:41: tablet [address] anastrozole Yes anastrozol Univers 1 mg tablet 7-24 e 1 mg ity of 15:41: tablet [address] anastrozole Yes anastrozol Univers 1 mg tablet 7-24 e 1 mg ity of 15:41: tablet [address] anastrozole Yes anastrozol Univers 1 mg tablet 7-24 e 1 mg ity of 15:41: tablet [address] anastrozole Yes anastrozol Univers 1 mg tablet 7-24 e 1 mg ity of 15:41: tablet [address] esomeprazol 2021-0 Yes 20mg Take 20 mg Univers e 20 mg 7-24 by mouth. ity of capsule 15:41: [address] esomeprazol 2021-0 Yes 20mg Take 20 mg Univers e 20 mg 7-24 by mouth. ity of capsule 15:41: [address] esomeprazol 2021-0 Yes 20mg Take 20 mg Univers e 20 mg 7-24 by mouth. ity of capsule 15:41: [address] esomeprazol 2021-0 Yes 20mg Take 20 mg Univers e 20 mg 7-24 by mouth. ity of capsule 15:41: [address] esomeprazol 2021-0 Yes 20mg Take 20 mg Univers e 20 mg 7-24 by mouth. ity of capsule 15:41: [address] ondansetron 2021-0 Yes [id number] 8mg Take 2 Univers 4 mg 7-24 9105 tablets by ity of disintegrat 00:00: mouth [place] ing tablet 00 every 8 Medica l (eight) Branch hours as needed for Nausea and Vomiting (N/V). butalbital- 2021-0 Yes [id number] 1{tbl} Take 1 Univers acetaminoph 7-24 9105 tablet by ity of en-caff 00:00: mouth [place] 50-325-40 00 every 8 Medical mg tablet (eight) Branch hours as needed for Pain (scale 4-6). ondansetron 2021-0 Yes [id number] 8mg Take 2 Univers 4 mg 7-24 9105 tablets by ity of disintegrat 00:00: mouth [place] ing tablet 00 every 8 Medica l (eight) Branch hours as needed for Nausea and Vomiting (N/V). butalbital- 2-0 Yes [id number] 1{tbl} Take 1 Univers acetaminoph 7-24 9105 tablet by ity of en-caff 00:00: mouth [place] 50-325-40 00 every 8 Medical mg tablet (eight) Branch hours as needed for Pain (scale 4-6). ondansetron 2-0 Yes [id number] 8mg Take 2 Univers 4 mg 7-24 9105 tablets by ity of disintegrat 00:00: mouth [place] ing tablet 00 every 8 Medica l (eight) Branch hours as needed for Nausea and Vomiting (N/V). butalbital- 2022-0 Yes [id number] 1{tbl} Take 1 Univers acetaminoph 7-24 9105 tablet by ity of en-caff 00:00: mouth [place] 50-325-40 00 every 8 Medical mg tablet (eight) Branch hours as needed for Pain (scale 4-6). ondansetron 2022-0 Yes [id number] 8mg Take 2 Univers 4 mg 7-24 9105 tablets by ity of disintegrat 00:00: mouth [place] ing tablet 00 every 8 Medica l (eight) Branch hours as needed for Nausea and Vomiting (N/V). butalbital- 2022-0 Yes [id number] 1{tbl} Take 1 Univers acetaminoph 7-24 9105 tablet by ity of en-caff 00:00: mouth [place] 50-325-40 00 every 8 Medical mg tablet (eight) Branch hours as needed for Pain (scale 4-6). ondansetron 2022-0 Yes [id number] 8mg Take 2 Univers 4 mg 7-24 9105 tablets by ity of disintegrat 00:00: mouth [place] ing tablet 00 every 8 Medica l (eight) Branch hours as needed for Nausea and Vomiting (N/V). butalbital- 2022-0 Yes [id number] 1{tbl} Take 1 Univers acetaminoph 7-24 9105 [...] mouth ity of etamine 13:14: daily. Up [place] (ADDERALL) 34 to TID Medical 20 mg Branch tablet dextroamphe 2022-0 Yes 20mg Take 20 mg Univers tamine-amph 2-04 by mouth ity of etamine 13:14: daily. Up [place] (ADDERALL) 34 to TID Medical 20 mg Branch tablet dextroamphe 2022-0 Yes 20mg Take 20 mg Univers tamine-amph 2-04 by mouth ity of etamine 13:14: daily. Up [place] (ADDERALL) 34 to TID Medical 20 mg Branch tablet dextroamphe 2022-0 Yes 20mg Take 20 mg Univers tamine-amph 2-04 by mouth ity of etamine 13:14: daily. Up [place] (ADDERALL) 34 to TID Medical 20 mg Branch tablet dextroamphe 2022-0 Yes 20mg Take 20 mg Univers tamine-amph 2-04 by mouth ity of etamine 13:14: daily. Up [place] (ADDERALL) 34 to TID Medical 20 mg Branch tablet dextroamphe 2-0 Yes 20mg Take 20 mg Univers tamine-amph 2-04 by mouth ity of etamine 13:14: daily. Up [place] (ADDERALL) 34 to TID Medical 20 mg Branch tablet fluticasone 2-0 Yes [id number] 1{puff} Inhale 1 Univers propion-walter 2-04 6 Puff every it y of meteroL 00:00: 12 [place] (ADVAIR 00 (twelve) Medical DISKUS) hours. Branch 250-50 mcg/dose inhalation disk albuterol 2-0 Yes [id number] 2{puff} Inhale 2 Univers 90 2-04 6 Puffs ity of mcg/actuati 00:00: every 6 Vivek as on inhaler 00 (six) Medical hours as Branch needed for Wheezing or Shortness of Breath. fluticasone 2022-0 Yes [id number] 1{puff} Inhale 1 Univers propion-walter 2-04 6 Puff every it y of meteroL 00:00: 12 [place] (ADVAIR 00 (twelve) Medical DISKUS) hours. Branch 250-50 mcg/dose inhalation disk albuterol 2022-0 Yes [id number] 2{puff} Inhale 2 Univers 90 2-04 6 Puffs ity of mcg/actuati 00:00: every 6 Vivek as on inhaler 00 (six) Medical hours as Branch needed for Wheezing or Shortness of Breath. fluticasone 2021-0 Yes [id number] 1{puff} Inhale 1 Univers propion-walter 2-04 6 Puff every it y of meteroL 00:00: 12 [place] (ADVAIR 00 (twelve) Medical DISKUS) hours. Branch 250-50 mcg/dose inhalation disk albuterol 2021-0 Yes [id number] 2{puff} Inhale 2 Univers 90 2-04 6 Puffs ity of mcg/actuati 00:00: every 6 Vivek as on inhaler 00 (six) Medical hours as Branch needed for Wheezing or Shortness of Breath. fluticasone 2021-0 Yes [id number] 1{puff} Inhale 1 Univers propion-walter 2-04 6 Puff every it y of meteroL 00:00: 12 [place] (ADVAIR 00 (twelve) Medical DISKUS) hours. Branch 250-50 mcg/dose inhalation disk albuterol 2021-0 Yes [id number] 2{puff} Inhale 2 Univers 90 2-04 6 Puffs ity of mcg/actuati 00:00: every 6 V[place] as on inhaler 00 (six) Medical hours as Branch needed for Wheezing or Shortness of Breath. fluticasone 2021-0 Yes [id number] 1{puff} Inhale 1 Univers propion-walter 2-04 6 Puff every it y of meteroL 00:00: 12 [place] (ADVAIR 00 (twelve) Medical DISKUS) hours. Branch 250-50 mcg/dose inhalation disk albuterol 2021-0 Yes [id number] 2{puff} Inhale 2 Univers 90 2-04 6 Puffs ity of mcg/actuati 00:00: every 6 Vive[place] as on inhaler 00 (six) Medical hours as Branch needed for Wheezing or Shortness of Breath. fluticasone 2021-0 Yes [id number] 1{puff} Inhale 1 Univers propion-walter 2-04 6 Puff every it y of meteroL 00:00: 12 [place] (ADVAIR 00 (twelve) Medical DISKUS) hours. Branch 250-50 mcg/dose inhalation disk albuterol 2022-0 Yes [id number] 2{puff} Inhale 2 Univers 90 2-04 6 Puffs ity of mcg/actuati 00:00: every 6 [place] as on inhaler 00 (six) Medical hours as Branch needed for Wheezing or Shortness of Breath. fluticasone 2021-0 Yes [id number] 1{puff} Inhale 1 Univers propion-walter 2-04 6 Puff every it y of meteroL 00:00: 12 [place] (ADVAIR 00 (twelve) Medical DISKUS) hours. Branch 250-50 mcg/dose inhalation disk albuterol 2021-0 Yes [id number] 2{puff} Inhale 2 Univers 90 2-04 6 Puffs ity of mcg/actuati 00:00: every 6 Vive[place] as on inhaler 00 (six) Medical hours as Branch needed for Wheezing or Shortness of Breath. fluticasone 0 Yes [id number] 1{puff} Inhale 1 Univers propion-walter 2-04 6 Puff every it y of meteroL 00:00: 12 [place] (ADVAIR 00 (twelve) Medical DISKUS) hours. Branch 250-50 mcg/dose inhalation disk albuterol 2021-0 2023- No [id number] 2{puff} Inhale 2 Univers 90 2-04 02-16 6 Puffs ity of mcg/actuati 00:00: 00:00 every 6 [place] inhaler 00 :00 (six) Medical hours as Branch needed for Wheezing or Shortness of Breath. Fluticasone 2021-0 2022- No 1{puff} Inhale 1 [place] -Salmeterol 2-04 12-20 puff into Se ybold 250-50 00:00: 00:00 the lungs - MCG/ACT 00 :00 every 12 Externa inhalation hours l AEROSOL POWDER, BREATH ACTIVATED bromphenira 2021-0 Yes [id number] 5mL Take 5 mL Univers mine-pseudo 1-26 by mouth 4 it y of ephedrine-D 00:00: (four[place] (BROM[place] 00 times Medical DM) 2-30-10 daily as Bran ch mg/5 mL needed for syrup Congestion /Allergies or Cough. bromphenira 2021-0 Yes [id number] 5mL Take 5 mL Univers mine-pseudo 1-26 by mouth 4 it y of ephedrine-D 00:00: (four[place] (BROMF[place] 00 times Medical DM) 2-30-10 daily as Bran ch mg/5 mL needed for syrup Congestion /Allergies or Cough. bromphenira 2021-0 Yes [id number] 5mL Take 5 mL Univers mine-pseudo 1-26 by mouth 4 it y of ephedrine-D 00:00: (four[place] (BROMFED 00 times Medical DM) 2-30-10 daily as Bran ch mg/5 mL needed for syrup Congestion /Allergies or Cough. bromphenira 2021-0 Yes [id number] 5mL Take 5 mL Univers mine-pseudo 1-26 by mouth 4 it y of ephedrine-D 00:00: (four[place] (BROMFED 00 times Medical DM) 2-30-10 daily as Bran ch mg/5 mL needed for syrup Congestion /Allergies or Cough. bromphenira 2021-0 Yes [id number] 5mL Take 5 mL Univers mine-pseudo 1-26 by mouth 4 it y of ephedrine-D 00:00: (four[place] (BROMFED 00 times Medical DM) 2-30-10 daily as Bran ch mg/5 mL needed for syrup Congestion /Allergies or Cough. bromphenira 2021-0 Yes [id number] 5mL Take 5 mL Univers mine-pseudo 1-26 by mouth 4 it y of ephedrine-D 00:00: (four) [place] (BROMFED 00 times Medical DM) 2-30-10 daily as Bran ch mg/5 mL needed for syrup Congestion /Allergies or Cough. bromphenira 2021-0 Yes [id number] 5mL Take 5 mL Univers mine-pseudo 1-26 by mouth 4 it y of ephedrine-D 00:00: (four[place] (BROMFED 00 times Medical DM) 2-30-10 daily as Bran ch mg/5 mL needed for syrup Congestion /Allergies or Cough. bromphenira 2021-0 Yes [id number] 5mL Take 5 mL Univers mine-pseudo 1-26 by mouth 4 it y of ephedrine-D 00:00: (four) [place] (BROMFED 00 times Medical DM) 2-30-10 daily as Bran ch mg/5 mL needed for syrup Congestion /Allergies or Cough. predniSONE 2021-0 2021- No [id number] Take 4 Univers 10 mg -26 -07 tablets by ity of tablet 00:00: 05:59 mouth [place] 00 :00 daily for Medical 5 days, Branch THEN 3 tablets daily for 3 days, THEN 2 tablets daily for 2 days, THEN 1 tablet daily for 1 day. predniSONE 2021-0 2021- No [id number] Take 4 Univers 10 mg -26 02-07 tablets by ity of tablet 00:00: 05:59 mouth [place] 00 :00 daily for Medical 5 days, Branch THEN 3 tablets daily for 3 days, THEN 2 tablets daily for 2 days, THEN 1 tablet daily for 1 day. doxycycline 2021-0 Yes [id number] 100mg Take 1 Univers monohydrate 1-13 capsule by it y of 100 mg 00:00: mouth 2 [place] capsule 00 (two) Medical times Branch daily. doxycycline 2021-0 Yes [id number] 100mg Take 1 Univers monohydrate 1-13 capsule by it y of 100 mg 00:00: mouth 2 [place] capsule 00 (two) Medical times Branch daily. doxycycline 2021-0 Yes [id number] 100mg Take 1 Univers monohydrate 1-13 capsule by it y of 100 mg 00:00: mouth 2 [place] capsule 00 (two) Medical times Branch daily. doxycycline 2021-0 Yes [id number] 100mg Take 1 Univers monohydrate 1-13 capsule by it y of 100 mg 00:00: mouth 2 [place] capsule 00 (two) Medical times Branch daily. doxycycline 2021-0 Yes [id number] 100mg Take 1 Univers monohydrate 1-13 capsule by it y of 100 mg 00:00: mouth 2 [place] capsule 00 (two) Medical times Branch daily. doxycycline 2021-0 Yes [id number] 100mg Take 1 Univers monohydrate 1-13 capsule by it y of 100 mg 00:00: mouth 2 [place] capsule 00 (two) Medical times Branch daily. doxycycline 2-0 Yes [id number] 100mg Take 1 Univers monohydrate 1-13 capsule by it y of 100 mg 00:00: mouth 2 [place] capsule 00 (two) Medical times Branch daily. doxycycline 2-0 Yes [id number] 100mg Take 1 Univers monohydrate 1-13 capsule by it y of 100 mg 00:00: mouth 2 [place] capsule 00 (two) Medical times Branch daily. clomiPHENE 2020-07 Yes clomiphene U nivers 50 mg 2-22 citrate 50 ity of tablet 20:08: mg tablet [place] [address] TAKE ONE Medical TABLET BY Branch MOUTH ONE TIME DAILY ANASTROZOLE 2020-07 Yes 20mg Take 20 mg Univers ORAL 2-22 by mouth. ity of 20:08: [address] tadalafiL 2020-07 Yes 20mg Take 20 mg Un quoc 20 mg 2-22 by mouth. ity of tablet 20:08: [address] clomiPHENE 2020-07 Yes clomiphene U nivers 50 mg 2-22 citrate 50 ity of tablet 20:08: mg tablet [place] [address] TAKE ONE Medical TABLET BY Branch MOUTH ONE TIME DAILY ANASTROZOLE 2020-07 Yes 20mg Take 20 mg Univers ORAL 2-22 by mouth. ity of 20:08: [address] tadalafiL 2020-07 Yes 20mg Take 20 mg Un quoc 20 mg 2-22 by mouth. ity of tablet 20:08: [address] clomiPHENE 2020-07 Yes clomiphene U nivers 50 mg 2-22 citrate 50 ity of tablet 20:08: mg tablet [place] [address] TAKE ONE Medical TABLET BY Branch MOUTH ONE TIME DAILY ANASTROZOLE 2020-07 Yes 20mg Take 20 mg Univers ORAL 2-22 by mouth. ity of 20:08: [address] tadalafiL 2020-07 Yes 20mg Take 20 mg Un quoc 20 mg 2-22 by mouth. ity of tablet 20:08: [address] clomiPHENE 2020-07 Yes clomiphene U nivers 50 mg 2-22 citrate 50 ity of tablet 20:08: mg tablet [place] [address] TAKE ONE Medical TABLET BY Branch MOUTH ONE TIME DAILY ANASTROZOLE 2020-07 Yes 20mg Take 20 mg Univers ORAL 2-22 by mouth. ity of 20:08: [address] tadalafiL 2020-07 Yes 20mg Take 20 mg Un quoc 20 mg 2-22 by mouth. ity of tablet 20:08: [address] clomiPHENE 2020-07 Yes clomiphene U nivers 50 mg 2-22 citrate 50 ity of tablet 20:08: mg tablet [place] [address] TAKE ONE Medical TABLET BY Branch MOUTH ONE TIME DAILY ANASTROZOLE 2020-07 Yes 20mg Take 20 mg Univers ORAL 2-22 by mouth. ity of 20:08: [address] tadalafiL 2020-07 Yes 20mg Take 20 mg Un quoc 20 mg 2-22 by mouth. ity of tablet 20:08: [address] clomiPHENE 2020-07 Yes clomiphene U nivers 50 mg 2-22 citrate 50 ity of tablet 20:08: mg tablet [place] [address] TAKE ONE Medical TABLET BY Branch MOUTH ONE TIME DAILY ANASTROZOLE 2020-07 Yes 20mg Take 20 mg Univers ORAL 2-22 by mouth. ity of 20:08: [address] tadalafiL 2020-07 Yes 20mg Take 20 mg Un quoc 20 mg 2-22 by mouth. ity of tablet 20:08: [address] clomiPHENE 2020-07 Yes clomiphene U nivers 50 mg 2-22 citrate 50 ity of tablet 20:08: mg tablet [place] [address] TAKE ONE Medical TABLET BY Branch MOUTH ONE TIME DAILY ANASTROZOLE 2020-07 Yes 20mg Take 20 mg Univers ORAL 2-22 by mouth. ity of 20:08: [address] tadalafiL 2020-07 Yes 20mg Take 20 mg Un quoc 20 mg 2-22 by mouth. ity of tablet 20:08: [address] clomiPHENE 2020-07 Yes clomiphene U nivers 50 mg 2-22 citrate 50 ity of tablet 20:08: mg tablet [place] [address] TAKE ONE Medical TABLET BY Branch MOUTH ONE TIME DAILY ANASTROZOLE 2020-07 Yes 20mg Take 20 mg Univers ORAL 2-22 by mouth. ity of 20:08: [address] tadalafiL 2020-07 Yes 20mg Take 20 mg Un quoc 20 mg 2-22 by mouth. ity of tablet 20:08: [address] clomiPHENE 2021- No clomiphene [place] Citrate 50 1- 12-20 citrate 50 Se ybold MG oral 00:00: 00:00 mg tablet - Tablet 00 :00 TAKE ONE Externa TABLET BY l MOUTH ONE TIME DAILY Cetirizine 2021- No [place] HCl (ZyrTEC - 12-20 Seybold Allergy) 10 00:00: 00:00 - MG oral 00 :00 Externa Capsule l Immunizations Ordered Immunization Filled Immunization Date Status Commen ts Source Name Name Td (adult) 2017-01-22 Completed [place] ybnate 00:00:00 - External Td (adult) 2017-01-22 Completed [place] ybnate 00:00:00 - External Td (adult) 2017-01-22 Completed [place] ybnate 00:00:00 - External Td (adult) 2017-01-22 Completed [place] ybnate 00:00:00 - External Td (adult) 2017-01-22 Completed [place] ybold 00:00:00 - External Vital Signs Vital Name Observation Time Observation Value Comments Source Systolic blood 2022-12-22 20:36:00 151 mm[Hg] [place] Monteybold - pressure External Diastolic blood 2022-12-22 20:36:00 89 mm[Hg] Yonis alejandra Seybold - pressure External Heart rate 2022-12-22 20:36:00 115 /min Lynnthierno bellbold - External Body temperature 2022-12-22 20:36:00 36.89 Radha Venus bell Seybold - External Respiratory rate 2022-12-22 20:36:00 15 /min Venus bell Seybold - External Body height 2022-12-22 20:36:00 180.3 cm Lynnthierno bellbold - External Body weight 2022-12-22 20:36:00 196.408 kg [place] bellbold - External BMI 2022-12-22 20:36:00 60.39 kg/m2 Lynnthierno bellbold - External Oxygen saturation in 2022-12-22 20:36:00 99 /min [place] Lacy - Arterial blood by External Pulse oximetry Systolic blood 2022-08-20 22:41:00 155 mm[Hg] [facility] Diastolic blood 2022-08-20 22:41:00 90 mm[Hg] Unive rsity [facility] Heart rate 2022-08-20 22:41:00 90 /min [facility] Body temperature 2022-08-20 22:41:[address] [facility] Res[facility] rate 2022-08-20 22:41:00 18 /min [facility] Body height 2022-08-20 22:41:00 182.9 cm [facility] Body weight 2022-08-20 22:41:00 191.826 kg [facility] BMI 2022-08-20 22:41:00 57.36 kg/m2 [facility] Oxygen saturation in 2022-08-20 22:41:00 97 /min [facility] blood by [facility] Pulse oximetry Branch Systolic blood 2022-08-04 21:47:00 164 mm[Hg] [place] Seybold - pressure External Diastolic blood 2022-08-04 21:47:00 90 mm[Hg] Kelse y Seybold - pressure External Heart rate 2022-08-04 21:47:00 98 /min [place] S eybold - External Body temperature 2022-08-04 21:47:00 36.44 Radha Venus ey Seybold - External Respiratory rate 2022-08-04 21:47:00 20 /min Venus ey Seybold - External Body height 2022-08-04 21:47:00 180.3 cm [place] S eybold - External Body weight 2022-08-04 21:47:00 190.057 kg [place] S eybold - External BMI 2022-08-04 21:47:00 58.44 kg/m2 [place] S eybold - External Systolic blood 2022-07-21 19:54:00 139 mm[Hg] [place] Seybold - pressure External Diastolic blood 2022-07-21 19:54:00 85 mm[Hg] Kelse y Seybold - pressure External Heart rate 2022-07-21 19:54:00 94 /min [place] S eybold - External Body temperature 2022-07-21 19:54:00 37 Radha Venus ey Seybold - External Respiratory rate 2022-07-21 19:54:00 14 /min Venus ey Seybold - External Body height 2022-07-21 19:54:00 180.3 cm [place] S eybold - External Body weight 2022-07-21 19:54:00 197.315 kg [place] S eybold - External BMI 2022-07-21 19:54:00 60.67 kg/m2 [place] S eybold - External Oxygen saturation in 2022-07-21 19:54:00 99 /min [place] Lacy - Arterial blood by External Pulse oximetry Systolic blood 2022-06-29 21:16:00 130 mm[Hg] [place] Monteybold - pressure External Diastolic blood 2022-06-29 21:16:00 88 mm[Hg] Yonis Montgomeryold - pressure External Heart rate 2022-06-29 20:36:00 118 /min [place] Levine eybold - External Body temperature 2022-06-29 20:36:00 37 Radha Venus bell Seybold - External Respiratory rate 2022-06-29 20:36:00 16 /min Venus bell Seybold - External Body height 2022-06-29 20:36:00 180.3 cm [place] bellbold - External Body weight 2022-06-29 20:36:00 196.861 kg [place] bellbold - External BMI 2022-06-29 20:36:00 60.53 kg/m2 [place] bellbold - External Systolic blood 2022-01-31 20:42:00 142 mm[Hg] [facility] Diastolic blood 2022-01-31 20:42:00 87 mm[Hg] [facility] Heart rate 2022-01-31 20:41:00 94 /min [facility] Body temperature 2022-01-31 20:41:[address] [facility] Respiratory rate 2022-01-31 20:41:00 20 /min [facility] Body height 2022-01-31 20:41:00 180.3 cm [facility] Grubbs Body weight 2022-01-31 20:41:00 187.789 kg [facility] BMI 2022-01-31 20:41:00 57.74 kg/m2 [facility] Oxygen saturation in 2022-01-31 20:41:00 97 /min University Arterial blood by [facility] Pulse oximetry Branch Systolic blood 2021-08-14 19:15:00 151 mm[Hg] Univer sity of pressure [facility] Diastolic blood 2021-08-14 19:15:00 97 mm[Hg] Unive rsity of pressure [facility] Heart rate 2021-08-14 19:13:00 98 /min [facility] Body height 2021-08-14 19:13:00 180.3 cm [facility] Body weight 2021-08-14 19:13:00 173.444 kg [facility] BMI 2021-08-14 19:13:00 53.33 kg/m2 [facility] Oxygen saturation in 2021-08-14 19:13:00 96 /min [facility] Arterial blood by [facility] Pulse oximetry Branch Height 2022-12-09 20:08:00 5 [ft_i] [facility] Weight 2022-12-09 20:08:00 [facility] [place] BMI Calculated 2022-12-09 20:08:00 [facility] Systolic (mm Hg) 2022-11-19 18:03:00 Uday rial [place] Diastolic (mm Hg) 2022-11-19 18:03:00 Mem orial [place] Height 2022-11-19 15:18:00 5 [ft_i] [facility] Weight 2022-11-19 15:18:00 [facility] [place] BMI Calculated 2022-11-19 15:18:00 Memori al [place] Systolic (mm Hg) 2022-10-21 15:35:00 Uday rial [place] Diastolic (mm Hg) 2022-10-21 15:35:00 Mem orial [place] Heart Rate 2022-10-21 15:35:00 [facility] Height 2022-10-21 15:35:00 5 [ft_i] [facility] [place] Weight 2022-10-21 15:35:00 [facility] BMI Calculated 2022-10-21 15:35:00 Memori al [place] Temperature Oral (F) 2022-07-13 07:14:00 98.2 F [facility] Heart Rate 2022-07-13 07:14:00 [facility] [place] Systolic (mm Hg) 2022-07-13 07:14:00 Uday rial [place] Diastolic (mm Hg) 2022-07-13 07:14:00 Mem orial [place] Height 2022-07-12 21:43:00 5 [ft_i] [facility] BMI Calculated 2022-07-12 21:43:00 Milad al [facility] Weight 2022-07-12 21:43:[address] [facility] Procedures Procedure Date / Time Performing Clinician Source Performed CONSENT/REFUSAL FOR 2022-08-20 22:23:45 Doctor Unassigned, No Un [facility] DIAGNOSIS AND TREATMENT Name Medical Branch Vertical banded [facility] gastroplasty [facility]atus [facility] nn adenoidectomy Removal of gallbladder [facility] Endoscopy [facility] Arthroscopy of knee [facility] Appendectomy [facility] Encounters Start End Encounter Admission Attending Care Care Encounter Source Date/Time Date/Time Type Type Clinicians Facility Department ID 2023-01-12 Inpatient SANDIE [facility] ANA ROSA [id number] Me moria 13:28:36 MARY Heart [facility] 2023-03-24 2023-03-24 Outpatient LYNN REY [id number] [place] 15:30:00 15:30:00 JOSE ALFREDO Seybol d 2023-03-04 2023-03-04 Outpatient KATIE GOMEZ [id number] [place] 14:45:00 14:45:00 Seybol d 2023-02-23 2023-02-23 Outpatient LYNN JAQUEZ [id number] [place] 16:00:00 16:00:00 CHARLIE Seybol d 2023-02-04 2023-02-04 Outpatient KATIE GOMEZ [id number] [place] 14:15:00 14:15:00 Seybol d 2023-01-27 2023-01-27 Outpatient MHIE MHIE [id number] Memoria 10:00:00 10:00:00 04 l [place] 2023-01-27 2023-01-27 Outpatient MHIE MHIE [id number] Memoria 10:00:00 10:00:00 04 l [place] 2023-01-08 2023-01-08 Outpatient LYNN REY [id number] [place] 00:00:00 00:00:00 JOSE ALFREDO Seybol d 2023-01-06 2023-01-06 Outpatient LYNN LEWIS [id number] [place] 15:00:00 15:00:00 AYE Seybol d 2023-01-05 2023-01-06 Outpatient MHIE MH [id number] Memoria 14:30:00 04:59:59 Physicians 05 l Bariatric Roby n Surgery 2023-01-05 2023-01-05 Outpatient [facility] [id number] 09:30:00 23:59:59 NURSE MPB 05 2023-01-05 2023-01-05 Outpatient LYNN LEWIS [id number] [place] 15:00:00 15:00:00 AYE Seybol d 2023-01-05 2023-01-05 Outpatient MHIE MHIE [id number] Memoria 09:30:00 09:30:00 05 dwaine Enriquez 2023-01-05 2023-01-05 Outpatient MHIE MHIE [id number] Memoria 09:30:00 09:30:00 05 dwaine Enriquez 2022-12-29 2022-12-29 Outpatient LYNN LEWIS [id number] [place] 09:50:00 09:50:00 AYE Seybol d 2022-12-22 2022-12-22 Outpatient LYNN REY [id number] [place] 15:30:00 15:30:00 JOSE ALFREDO Seybol d 2022-12-22 2022-12-22 Outpatient LYNN REY [id number] [place] 00:00:00 00:00:00 JOSE ALFREDO Seybol d 2022-12-09 2022-12-10 Outpatient MHIE MH [id number] Memoria 20:00:00 04:59:59 Physicians 03 l Bariatric Roby n Surgery 2022-12-09 2022-12-10 Outpatient MHIE MH [id number] Memoria 20:00:00 04:59:59 Physicians 03 l Bariatric Roby n Surgery 2022-12-09 2022-12-09 Outpatient Primlexy, [facility] [id number] 15:00:00 23:59:59 Mary Stauffer 2022-12-09 2022-12-09 Outpatient MHIE MHIE [id number] Memoria 15:00:00 15:00:00 03 l [place] 2022-12-02 2022-12-02 Outpatient PREZASSANDYLYNNTHIERNO BAILEY [id number] [place] 00:00:00 00:00:00 JOSE ALFREDO Seybol d 2022-12-02 2022-12-02 Outpatient PREZAS LYNN BAILEY [id number] [place] 00:00:00 00:00:00 JOSE ALFREDO Seybol d 2022-11-30 2022-11-30 Outpatient PREZAS LYNN BAILEY [id number] [place] 00:00:00 00:00:00 JOSE ALFREDO Seybol d 2022-11-28 2022-11-28 Outpatient PREZAS LYNN BAILEY [id number] [place] 00:00:00 00:00:00 JOSE ALFREDO Seybol d 2022-11-21 2022-11-21 Outpatient PREZAS LYNN BAILEY [id number] [place] 00:00:00 00:00:00 JOSE ALFREDO Seybol d 2022-11-19 2022-11-19 Bedded MHIE [facility] [id number] Memoria 13:20:00 19:00:00 Outpatient [place] 01 l [facility] 2022-11-19 2022-11-19 Bedded MHIE [facility] [id number] Memoria 13:20:00 19:00:00 Outpatient Mina 01 l [facility] 2022-11-19 2022-11-19 Outpatient [facility] ANA ROSA [id number] Memoria 08:20:00 14:00:[address] [facility] 2022-11-19 2022-11-19 [facility] [id number] 08:20:00 14:00:00 Mary Stauffer 2022-11-18 2022-11-18 Outpatient MHIE MHIE [id number] Memoria 15:00:00 15:00:00 02 l [place] 2022-11-18 2022-11-18 Outpatient MHIE MHIE [id number] Memoria 15:00:00 15:00:00 02 l [place] 2022-11-13 2022-11-13 Outpatient PREKARENAS LYNN BAILEY [id number] [place] 00:00:00 00:00:00 JOSE ALFREDO Seybol d 2022-11-05 2022-11-05 Outpatient KATIE GMOEZ LYNN [id number] [place] 08:00:00 08:00:00 Seybol d 2022-11-05 2022-11-05 Outpatient KATIE GOMEZ LYNN [id number] [place] 08:00:00 08:00:00 Seybol d 2022-11-01 2022-11-01 Outpatient PREZAAbner LYNN BAILEY [id number] [place] 00:00:00 00:00:00 JOSE ALFREDO Seybol d 2022-10-29 2022-10-29 Outpatient PREZAAbner LYNN BAILEY [id number] [place] 00:00:00 00:00:00 JOSE ALFREDO Seybol d 2022-10-25 2022-10-25 Outpatient PREZAAbner LYNN BAILEY [id number] [place] 00:00:00 00:00:00 JOSE ALFREDO Seybol d 2022-10-25 2022-10-25 Outpatient PREZAAbner LYNN BAILEY [id number] [place] 00:00:00 00:00:00 JOSE ALFREDO Seybol d 2022-10-21 2022-10-22 Outpatient MHIE MH [id number] Memoria 15:15:00 04:59:59 Physicians 01 l Bariatric Roby n Surgery 2022-10-21 2022-10-22 Outpatient MHIE MH [id number] Memoria 15:15:00 04:59:59 Physicians 01 l Bariatric Roby n Surgery 2022-10-21 2022-10-21 Outpatient Primlexy, [facility] [id number] 10:15:00 23:59:59 Mary 01 Eh 2022-10-21 2022-10-21 Ambulatory MHIE MH [id number] Memoria 15:15:00 15:15:00 Pre-Reg Physicians 00 l Bariatric Roby n Surgery 2022-10-21 2022-10-21 Ambulatory MHIE MH [id number] Memoria 15:15:00 15:15:00 Pre-Reg Physicians 00 l Bariatric Roby n Surgery 2022-10-21 2022-10-21 Outpatient MHIE MHIE [id number] Memoria 10:15:00 10:15:00 01 l [place] 2022-10-21 2022-10-21 Outpatient MHIE MHIE [id number] Memoria 10:15:00 10:15:00 00 l [place] 2022-10-21 2022-10-21 Outpatient Sandie, [facility] [id number] 10:15:00 10:15:00 Mary 00 Eh 2022-10-20 2022-10-20 Outpatient LYNN REY [id number] [place] 00:00:00 00:00:00 JOSE ALFREDO Seybol d 2022-10-13 2022-10-13 Outpatient RACBRITTANYINLYNN [id number] [place] 00:00:00 00:00:00 SONA Seybol d 2022-10-12 2022-10-12 Outpatient LYNN LOERA [id number] [place] 00:00:00 00:00:00 SONA Seybol d 2022-10-04 2022-10-04 Outpatient LYNN LOERA [id number] [place] 00:00:00 00:00:00 SONA Seybol d 2022-10-04 2022-10-04 Outpatient LYNN LOERA [id number] [place] 00:00:00 00:00:00 SONA Seybol d 2022-09-30 2022-09-30 Outpatient RACLYNN BRAR [id number] [place] 00:00:00 00:00:00 SONA Seybol d 2022-09-28 2022-09-28 Outpatient LYNN REY [id number] [place] 00:00:00 00:00:00 JOSE ALFREDO Seybol d 2022-09-27 2022-09-27 Outpatient PUTHENPERIK BAILEY [id number] [place] 13:40:00 13:40:00 LUPE HARPER Se 2022-09-22 2022-09-24 Outside [facility] [id number] Memoria 21:04:45 04:59:59 Medical Physicians 00 l Records Bariatric Roby n Surgery 2022-09-22 2022-09-24 Outside [facility] MH [id number] Memoria 21:04:45 04:59:59 Medical Physicians 00 l Records Bariatric Roby n Surgery 2022-09-22 2022-09-23 Outpatient [facility] [id number] 16:04:45 23:59:59 00 2022-09-17 2022-09-17 Outpatient LYNN REY [id number] [place] 00:00:00 00:00:00 JOSE ALFREDO Seybol d 2022-09-15 2022-09-15 Outpatient LYNN LOERA [id number] [place] 00:00:00 00:00:00 SONA Seybol d 2022-09-10 2022-09-10 Outpatient LYNN BAILEY [id number] [place] 09:00:00 09:00:00 Seybol d 2022-08-26 2022-08-26 Outpatient LYNN REY [id number] [place] 00:00:00 00:00:00 JOSE ALFREDO Seybol d 2022-08-26 2022-08-26 Outpatient LYNN JAQUEZ [id number] [place] 00:00:00 00:00:00 CHARLIE Seybol d 2022-08-26 2022-08-26 Tao Joseph [facility] 1.2.840.114 [id number] Univers 00:00:00 00:00:00 Tiki GLYNN [id number] ean dan [facility] [id number] [phone] Ma dical NAL 085 [facility] 2022-08-25 2022-08-25 Outpatient LYNN LOERA [id number] [place] 00:00:00 00:00:00 SONA Seybol d 2022-08-20 2022-08-20 Urgent Heidy Martinez [facility] 1.2.840.114 [id number] Univers 16:20:00 16:40:00 Care Unknown, Attending [facility] [id number] kathyy ahsan [place] [id number] Vivek as VANDANA?BLEA [phone] Ma dical KNEY [address] MEDICAL OFFICE [facility] 2022-08-20 2022-08-20 Outpatient Sahara MARTINEZ III [facility] [id number] Univers 16:20:00 16:20:00 HEIDY ity of [facility] 2022-08-20 2022-08-20 Orders Doctor MARY 1.2.840.114 [id number] Univers 00:00:00 00:00:00 Only Unassigned, CHANDLER 350.1.13.10 ity [facility] [id number] Vivek as [phone] [address] 2022-08-19 2022-08-19 Outpatient PREZALYNN Levine [id number] [place] 15:15:00 15:15:00 JOSE ALFREDO Seybol d 2022-08-18 2022-08-18 Outpatient LYNN LOERA [id number] [place] 14:30:00 14:30:00 SONA Seybol d 2022-08-17 2022-08-17 Outpatient PREZASLYNN [id number] [place] 00:00:00 00:00:00 JOSE ALFREDO Seybol d 2022-08-16 2022-08-16 Outpatient PREZASLYNN [id number] [place] 00:00:00 00:00:00 JOSE ALFREDO Seybol d 2022-08-12 2022-08-12 Outpatient PREZASLYNN [id number] [place] 00:00:00 00:00:00 JOSE ALFREDO Seybol d 2022-08-04 2022-08-04 Outpatient GISELELYNN [id number] [place] 16:00:00 16:00:00 CHARLIE Seybol d 2022-08-04 2022-08-04 Outpatient PREZASLYNN [id number] [place] 00:00:00 00:00:00 JOSE ALFREDO Seybol d 2022-08-02 2022-08-02 Outpatient PREZASLYNN [id number] [place] 00:00:00 00:00:00 JOSE ALFREDO Seybol d 2022-08-02 2022-08-02 Outpatient PREZASLYNN [id number] [place] 00:00:00 00:00:00 JOSE ALFREDO Seybol d 2022-08-01 2022-08-01 Outpatient PREZAS LYNN BAILEY [id number] [place] 00:00:00 00:00:00 JOSE ALFREDO Seybol d 2022-07-21 2022-07-21 Outpatient PREZAS LYNN BAILEY [id number] [place] 13:45:00 13:45:00 JOSE ALFREDO Seybol d 2022-07-16 2022-07-16 Outpatient PREZAS LYNN BAILEY [id number] [place] 00:00:00 00:00:00 JOSE ALFREDO Seybol d 2022-07-16 2022-07-16 Outpatient PREZAS LYNN BAILEY [id number] [place] 00:00:00 00:00:00 JOSE ALFREDO Seybol d 2022-07-14 2022-07-14 Outpatient PREZAS, LYNN BAILEY [id number] [place] 00:00:00 00:00:00 JOSE ALFREDO Seybol d 2022-07-12 2022-07-[address] [facility] [id number] Memoria 21:16:26 07:16:[address] 2022-07-12 2022-07-[address] [facility] [id number] Memoria 21:16:26 07:16:[address] 2022-07-12 2022-07-13 Outpatient Hernández, [facility] [id number] 15:16:26 01:16:[address] [place] [address] 2022-07-12 2022-07-13 Emergency E BETTY, [facility] [id number] [facility] 15:16:00 01:16:00 RONA 2022-07-13 2022-07-13 Outpatient PREJOAQUÍN LYNN BAILEY [id number] [place] 00:00:00 00:00:00 JOSE ALFREDO Seybol d 2022-06-29 2022-06-29 Outpatient PREZAS LYNN BAILEY [id number] [place] 14:45:00 14:45:00 JOSE ALFREDO Seybol d 2022-02-13 2022-02-13 Tao Prado [facility] 1.2.840.114 [id number] Univers 00:00:00 00:00:00 [facility] 350.1.13.10 it y of [place] [id number] Vivek as VANDANA?BLEA [phone] [address] OFFICE [facility] 2022-01-31 2022-01-31 Urgent Billy [facility] 1.2.840.114 [id number] Univers 15:40:00 16:00:00 Care [facility] [id number] it y of [place] [id number] Vivek as VANDANA?BLEA [phone] [address] 2022-01-31 2022-01-31 Outpatient R BILLY [facility] [id number] Univers 15:40:00 15:40:00 TELLY ity of [facility] 2021-12-10 2021-12-10 Outpatient R TIKI JOSEPH [facility] [id number] Univers 13:30:00 13:30:00 TIKI JOSEPH i ty of [facility] 2021-09-01 2021-09-01 Telephone Kathryn [facility] [id number] Univers 00:00:00 00:00:00 [facility] [place] 350.1.13.10 i [place] [phone] Ma tracieny NAL [address] [place] [address] 2021-08-14 2021-08-14 Outpatient R TIKI JOSEPH [facility] [id number] Univers 13:00:00 13:30:04 TIKI JOSEPH i ty of [facility] 2021-08-14 2021-08-14 Office Kathryn [facility] 1.2.840.114 [id number] Univers 13:00:00 13:30:04 [facility] 350.1.13.10 i ty [place] [phone] Ma dickarin NAL 5 [facility] 2021-08-14 2021-08-14 Outpatient R TIKI JOSEPH [facility] [id number] Univers 13:00:00 13:30:04 TIKI JOSEPH i ty of [facility] 2021-08-14 2021-08-14 Orders Doctor MARY 1.2.840.114 [id number] Univers 00:00:00 00:00:00 Only Unassigned, CHANDLER 350.1.13.10 ity of [place] [facility] 4.2.7.2.686 Vivek as [phone] [address] 2021-08-05 2021-08-05 Outpatient R [facility] [id number] Univers 20:40:00 21:02:32 JADA booth andrea [facility] 2021-08-05 2021-08-05 Urgent Abi Motttany [facility] 1.2.840. 114 [id number] Univers 20:40:00 21:02:32 Care Tiffany Saldaña [facility] 350.1.13.10 ity of [place] [id number] Vivek as VANDANA?BLEA [phone] [facility] [address] MEDICAL OFFICE [facility] 2021-08-05 2021-08-05 Telephone Provider, [facility] 1.2.840.114 [id number] Univers 00:00:00 00:00:00 [facility] HEALTH 350.1.13.10 it y of Urgent Care [place] 4.2.7.2.686 [place] VANDANA?BLEA [phone] [facility] [address] MEDICAL OFFICE [facility] 2021-07-28 2021-07-28 [facility] 1.2.840.114 [id number] Univers 20:33:24 23:59:00 Encounter Starla sciencebite HEALTH 350.1.13.10 ity [facility] [id number] Vivek as VANDANA?BLEA [phone] [facility] [address] MEDICAL OFFICE [facility] 2021-07-28 2021-07-28 Outpatient R KIT [facility] [id number] Univers 20:33:23 23:59:00 STARLA booth f [facility] 2021-07-28 2021-07-28 [facility] 1.2.840.114 [id number] Univers 20:33:23 23:59:00 Encounter Starla J HEALTH 350.1.13.10 ity of [facility] [id number] Vivek as VANDANA?BLEA [phone] [facility] [address] MEDICAL OFFICE [facility] 2021-07-28 2021-07-28 [facility] 1.2.840.114 [id number] Univers 20:33:23 23:59:00 Encounter Starla Cuco [facility] 350.1.13.10 ity of [facility] [id number] Vivek as VANDANA?BLEA [phone] [facility] [address] MEDICAL OFFICE [facility] 2021-07-28 2021-07-28 Urgent Starla Tam [facility] 1.2.840 .114 [id number] Univers 20:20:00 20:43:40 Care Green, Telly HEALTH 350.1.13.10 ity of [place] [id number] Vivek as VANDANA?BLEA [phone] [address] MEDICAL OFFICE [facility] 2021-07-23 2021-07-23 Urgent Heidy Martinez [facility] 1.2.840.114 [id number] Univers 19:40:00 20:00:00 Care Green, Telly HEALTH 350.1.13.10 ity of [place] [id number] Vivek as VANDANA?BLEA [phone] [address] MEDICAL OFFICE [facility] 2021-07-23 2021-07-23 Outpatient R [facility] [id number] Univers 19:40:00 19:40:00 HEIDY perales of [facility] 2021-07-23 2021-07-23 Letter Provider, [facility] [id number] Univers 00:00:00 00:00:00 (Out) Ang HEALTH 350.1.13.10 it y of Urgent Care [place] 4.2.7.2.686 [place] VANDANA?BLEA [phone] [address] MEDICAL OFFICE [facility] 2021-07-02 2021-07-02 Telephone MARY [place] [id number] Univers 00:00:00 00:00:00 Dorene ARTEAGA 350.1.13.10 ity of [facility] 4.2.7.2.686 Vivek as [phone] [address] 2021-07-01 2021-07-01 Urgent Billy [facility] 1.2.840.114 [id number] Univers 20:00:00 20:51:14 [facility] 350.1.13.10 it y [facility]an [facility] [id number] Vivek as VANDANA?BLEA [phone] Ma dical [address] MEDICAL OFFICE [facility]ILDING 2021-07-01 2021-07-01 Outpatient R BILLY [facility] [id number] Univers 20:00:00 20:51:14 [facility] Results Test Description Test Time Test Comments Results Result Comments Source URINE AND STOOL 2022-07-13 05:30:00 Test Item Value Reference Range Interpretation Comme nts UA WBC (test code = UA WBC) no gt See_Comment [Automated message] The system which generated this result transmitted reference range : <=5. The reference range was not u sed to interpret this result as maya l/abnormal. [facility] AND [id number] 05:30:00 Test Item Value Reference Range Interpretation Comments UA Color (test code = Yellow *NA*(07/12/22 UA Color) 11:30 PM) [facility] AND [id number] 05:30:00 Test Item Value Reference Range Interpretation Comments UA Turbidity (test code = Clear (07/12/22 11:30 UA Turbidity) PM) [facility] AND [id number] 05:30:00 Test Item Value Reference Range Interpretation Comments UA Spec Grav (test code *NA*(07/12/22 11:30 PM) = UA Spec Grav) [facility] AND [id number] 05:30:00 Test Item Value Reference Range Interpretation Comments UA pH (test code = UA pH) 5.5 1 5.0-8.0 [facility] AND [id number] 05:30:00 Test Item Value Reference Range Interpretation Comments UA Protein (test code Negative (07/12/22 11:30 = UA Protein) PM) [facility] AND [id number] 05:30:00 Test Item Value Reference Range Interpretation Comments UA Glucose (test code Negative (07/12/22 11:30 = UA Glucose) PM) [facility] AND [id number] 05:30:00 Test Item Value Reference Range Interpretation Comments UA Ketones (test code = 15 *ABN*(07/12/22 11:30 UA Ketones) PM) [facility] AND [id number] 05:30:00 Test Item Value Reference Range Interpretation Comments UA Bili (test code = Negative *NA*(07/12/22 UA Bili) 11:30 PM) [facility] AND [id number] 05:30:00 Test Item Value Reference Range Interpretation Comments UA Blood (test code = Negative (07/12/22 11:30 UA Blood) PM) [facility] AND [id number] 05:30:00 Test Item Value Reference Range Interpretation Comments UA Urobilinogen (test code = UA 1.0 0.1-1.0 Urobilinogen) [facility] AND [id number] 05:30:00 Test Item Value Reference Range Interpretation Comments UA Nitrite (test code Negative (07/12/22 11:30 = UA Nitrite) PM) [facility] AND [id number] 05:30:00 Test Item Value Reference Range Interpretation Comments UA Leuk Est (test Negative (07/12/22 11:30 code = UA Leuk Est) PM) [facility] AND [id number] 05:30:00 Test Item Value Reference Range Interpretation Comments UA Sq Epi (test code = None Seen (07/12/22 11:30 UA Sq Epi) PM) [facility] AND [id number] 05:30:00 Test Item Value Reference Range Interpretation Comments UA WBC (test code = no gt See_Comment [Automa amanda message] The UA WBC) system which ge nerated this result transmit amanda reference range : <=5. The reference range was not used to interpr et this result as maya l/abnormal. [facility] AND [id number] 05:30:00 Test Item Value Reference Range Interpretation Comments UA Color (test code = Yellow *NA*(07/12/22 UA Color) 11:30 PM) [facility] AND [id number] 05:30:00 Test Item Value Reference Range Interpretation Comments UA Turbidity (test code = Clear (07/12/22 11:30 UA Turbidity) PM) [facility] AND [id number] 05:30:00 Test Item Value Reference Range Interpretation Comments UA Spec Grav (test code *NA*(07/12/22 11:30 PM) = UA Spec Grav) [facility] AND [id number] 05:30:00 Test Item Value Reference Range Interpretation Comments UA pH (test code = UA pH) 5.5 1 5.0-8.0 [facility] AND [id number] 05:30:00 Test Item Value Reference Range Interpretation Comments UA Protein (test code Negative (07/12/22 11:30 = UA Protein) PM) [facility] [id number] 05:30:00 Test Item Value Reference Range Interpretation Comments UA Glucose (test code Negative (07/12/22 11:30 = UA Glucose) PM) [facility] AND [id number] 05:30:00 Test Item Value Reference Range Interpretation Comments UA Ketones (test code = 15 *ABN*(07/12/22 11:30 UA Ketones) PM) [facility] AND [id number] 05:30:00 Test Item Value Reference Range Interpretation Comments UA Bili (test code = Negative *NA*(07/12/22 UA Bili) 11:30 PM) [facility] AND [id number] 05:30:00 Test Item Value Reference Range Interpretation Comments UA Blood (test code = Negative (07/12/22 11:30 UA Blood) PM) [facility] AND [id number] 05:30:00 Test Item Value Reference Range Interpretation Comments UA Urobilinogen (test code = UA 1.0 0.1-1.0 Urobilinogen) [facility] AND [id number] 05:30:00 Test Item Value Reference Range Interpretation Comments UA Nitrite (test code Negative (07/12/22 11:30 = UA Nitrite) PM) [facility] AND [id number] 05:30:00 Test Item Value Reference Range Interpretation Comments UA Leuk Est (test Negative (07/12/22 11:30 code = UA Leuk Est) PM) [facility] AND [id number] 05:30:00 Test Item Value Reference Range Interpretation Comments UA Sq Epi (test code = None Seen (07/12/22 11:30 UA Sq Epi) PM) [facility] AND [id number] 05:30:00 Test Item Value Reference Range Interpretation Comments UA WBC (test code = no gt See_Comment [Automa amanda message] The UA WBC) system which ge nerated this result transmit amanda reference range : <=5. The reference range was not used to interpr et this result as maya l/abnormal. [facility] AND [id number] 05:30:00 Test Item Value Reference Range Interpretation Comments UA Color (test code = Yellow *NA*(07/12/22 UA Color) 11:30 PM) [facility] AND [id number] 05:30:00 Test Item Value Reference Range Interpretation Comments UA Turbidity (test code = Clear (07/12/22 11:30 UA Turbidity) PM) [facility] AND [id number] 05:30:00 Test Item Value Reference Range Interpretation Comments UA Spec Grav (test code *NA*(07/12/22 11:30 PM) = UA Spec Grav) [facility] AND [id number] 05:30:00 Test Item Value Reference Range Interpretation Comments UA pH (test code = UA pH) 5.5 1 5.0-8.0 [facility] AND [id number] 05:30:00 Test Item Value Reference Range Interpretation Comments UA Protein (test code Negative (07/12/22 11:30 = UA Protein) PM) [facility] AND [id number] 05:30:00 Test Item Value Reference Range Interpretation Comments UA Glucose (test code Negative (07/12/22 11:30 = UA Glucose) PM) [facility] AND [id number] 05:30:00 Test Item Value Reference Range Interpretation Comments UA Ketones (test code = 15 *ABN*(07/12/22 11:30 UA Ketones) PM) [facility] AND [id number] 05:30:00 Test Item Value Reference Range Interpretation Comments UA Bili (test code = Negative *NA*(07/12/22 UA Bili) 11:30 PM) [facility] AND [id number] 05:30:00 Test Item Value Reference Range Interpretation Comments UA Blood (test code = Negative (07/12/22 11:30 UA Blood) PM) [facility] AND [id number] 05:30:00 Test Item Value Reference Range Interpretation Comments UA Urobilinogen (test code = UA 1.0 0.1-1.0 Urobilinogen) [facility] AND [id number] 05:30:00 Test Item Value Reference Range Interpretation Comments UA Nitrite (test code Negative (07/12/22 11:30 = UA Nitrite) PM) [facility] AND [id number] 05:30:00 Test Item Value Reference Range Interpretation Comments UA Leuk Est (test Negative (07/12/22 11:30 code = UA Leuk Est) PM) [facility] AND [id number] 05:30:00 Test Item Value Reference Range Interpretation Comments UA Sq Epi (test code = None Seen (07/12/22 11:30 UA Sq Epi) PM) [id number] 05:01:05 Test Item Value Reference Range Interpretation Comments RADRPT (test EXAM: ABDOMEN/PELVIS W IV code = RADRPT) CONTRAST CTHISTORY: 47 year-old man with abdominal pain. History of appendectomy, cholecystectomy, gastric banding, and hiatal hernia repair. Patient presents with epigastric pain. Concern at outside hospital for unknown possible perforation but unable to perform CT due to weight. Abdomen soft with diffuse moderate tenderness to palpation.TECHNIQUE: Contrast - IV contrast was given, no oral contrast was given Portal venous phase - abdomen and pelvisReconstructions - coronal and sagittal planesCOMPARISON: NoneFINDINGS:Statements: None.Thoracic: Included images of the lower chest demonstrate no abnormalities.Hepatobiliary: Diffuse low attenuation of the hepatic parenchyma is compatible with steatosis. No focal hepatic lesion detected. The gallbladder is surgically absent. No biliary dilation.Pancreas: No focal lesion or ductal dilatation.Spleen: Normal in size. Few punctate calcific foci, likely granulomas. Adrenals: No abnormality identified in either adrenal gland. Genitourinary: Symmetric enhancement. No hydronephrosis. The bladder is unremarkable. Prostate and seminal vesicles are unremarkable.Gastrointestinal: Mild circumferential distal esophageal wall thickening. Small hiatal hernia. Postsurgical changes are present at the stomach. Incidental note of small duodenal lipoma.. No dilated bowel. No findings of inflammation. Appendix is not visualized.Vascular/Lymphatics : Mildly prominent central mesenteric lymph nodes with mild increased attenuation in the surrounding fat as may be seen with mesenteric panniculitis. Abdominal aorta is normal in caliber.MSK/Body Wall:No concerning bony lesion identified. Atrophic changes at the mid and inferior right rectus abdominal is muscle. Moderate left and mild right fat-containing inguinal hernias. Fat density structure within the muscle at the lateral left pelvis likely represents a lipoma.Peritoneum/Other: No extraluminal air. No extraluminal fluid.IMPRESSION: 1. No acute abnormality in the abdomen or pelvis.2. Postsurgical changes at the stomach. May be correlated with surgical history for surgery type. Small hiatal hernia present and mild, circumferential, distal esophageal wall thickening, as may be seen with esophagitis.3. Findings in central mesentery compatible with sequela of mesenteric panniculitis with prominent central mesenteric lymph nodes and with subtle increased attenuation of the mesenteric fat.4. Hepatic steatosis.5. Fat-containing inguinal hernias (left moderate in size, right mild). [id number] 05:01:05 Test Item Value Reference Range Interpretation Comments RADRPT (test EXAM: ABDOMEN/PELVIS W IV code = RADRPT) CONTRAST CTHISTORY: 47 year-old man with abdominal pain. History of appendectomy, cholecystectomy, gastric banding, and hiatal hernia repair. Patient presents with epigastric pain. Concern at outside hospital for unknown possible perforation but unable to perform CT due to weight. Abdomen soft with diffuse moderate tenderness to palpation.TECHNIQUE: Contrast - IV contrast was given, no oral contrast was given Portal venous phase - abdomen and pelvisReconstructions - coronal and sagittal planesCOMPARISON: NoneFINDINGS:Statements: None.Thoracic: Included images of the lower chest demonstrate no abnormalities.Hepatobiliary: Diffuse low attenuation of the hepatic parenchyma is compatible with steatosis. No focal hepatic lesion detected. The gallbladder is surgically absent. No biliary dilation.Pancreas: No focal lesion or ductal dilatation.Spleen: Normal in size. Few punctate calcific foci, likely granulomas. Adrenals: No abnormality identified in either adrenal gland. Genitourinary: Symmetric enhancement. No hydronephrosis. The bladder is unremarkable. Prostate and seminal vesicles are unremarkable.Gastrointestinal: Mild circumferential distal esophageal wall thickening. Small hiatal hernia. Postsurgical changes are present at the stomach. Incidental note of small duodenal lipoma.. No dilated bowel. No findings of inflammation. Appendix is not visualized.Vascular/Lymphatics : Mildly prominent central mesenteric lymph nodes with mild increased attenuation in the surrounding fat as may be seen with mesenteric panniculitis. Abdominal aorta is normal in caliber.MSK/Body Wall:No concerning bony lesion identified. Atrophic changes at the mid and inferior right rectus abdominal is muscle. Moderate left and mild right fat-containing inguinal hernias. Fat density structure within the muscle at the lateral left pelvis likely represents a lipoma.Peritoneum/Other: No extraluminal air. No extraluminal fluid.IMPRESSION: 1. No acute abnormality in the abdomen or pelvis.2. Postsurgical changes at the stomach. May be correlated with surgical history for surgery type. Small hiatal hernia present and mild, circumferential, distal esophageal wall thickening, as may be seen with esophagitis.3. Findings in central mesentery compatible with sequela of mesenteric panniculitis with prominent central mesenteric lymph nodes and with subtle increased attenuation of the mesenteric fat.4. Hepatic steatosis.5. Fat-containing inguinal hernias (left moderate in size, right mild). [facility] [id number] 05:01:05 Test Item Value Reference Range Interpretation Comments RADRPT (test EXAM: ABDOMEN/PELVIS W IV code = RADRPT) CONTRAST CTHISTORY: 47 year-old man with abdominal pain. History of appendectomy, cholecystectomy, gastric banding, and hiatal hernia repair. Patient presents with epigastric pain. Concern at outside hospital for unknown possible perforation but unable to perform CT due to weight. Abdomen soft with diffuse moderate tenderness to palpation.TECHNIQUE: Contrast - IV contrast was given, no oral contrast was given Portal venous phase - abdomen and pelvisReconstructions - coronal and sagittal planesCOMPARISON: NoneFINDINGS:Statements: None.Thoracic: Included images of the lower chest demonstrate no abnormalities.Hepatobiliary: Diffuse low attenuation of the hepatic parenchyma is compatible with steatosis. No focal hepatic lesion detected. The gallbladder is surgically absent. No biliary dilation.Pancreas: No focal lesion or ductal dilatation.Spleen: Normal in size. Few punctate calcific foci, likely granulomas. Adrenals: No abnormality identified in either adrenal gland. Genitourinary: Symmetric enhancement. No hydronephrosis. The bladder is unremarkable. Prostate and seminal vesicles are unremarkable.Gastrointestinal: Mild circumferential distal esophageal wall thickening. Small hiatal hernia. Postsurgical changes are present at the stomach. Incidental note of small duodenal lipoma.. No dilated bowel. No findings of inflammation. Appendix is not visualized.Vascular/Lymphatics : Mildly prominent central mesenteric lymph nodes with mild increased attenuation in the surrounding fat as may be seen with mesenteric panniculitis. Abdominal aorta is normal in caliber.MSK/Body Wall:No concerning bony lesion identified. Atrophic changes at the mid and inferior right rectus abdominal is muscle. Moderate left and mild right fat-containing inguinal hernias. Fat density structure within the muscle at the lateral left pelvis likely represents a lipoma.Peritoneum/Other: No extraluminal air. No extraluminal fluid.IMPRESSION: 1. No acute abnormality in the abdomen or pelvis.2. Postsurgical changes at the stomach. May be correlated with surgical history for surgery type. Small hiatal hernia present and mild, circumferential, distal esophageal wall thickening, as may be seen with esophagitis.3. Findings in central mesentery compatible with sequela of mesenteric panniculitis with prominent central mesenteric lymph nodes and with subtle increased attenuation of the mesenteric fat.4. Hepatic steatosis.5. Fat-containing inguinal hernias (left moderate in size, right mild). [facility]454[facility] 04:10:00 Test Item Value Reference Range Interpretation Comments Lactic Acid Lvl (test code = Lactic 1.0 0.5-2.2 Acid Lvl) [place] [address]-01-03 04:10:00 Test Item Value Reference Range Interpretation Comments Lactic Acid Lvl (test code = Lactic 1.0 0.5-2.2 Acid Lvl) [place] [address]-01-03 04:10:00 Test Item Value Reference Range Interpretation Comments Lactic Acid Lvl (test code = Lactic 1.0 0.5-2.2 Acid Lvl) [place] [address]-01-02 23:48:22 Test Item Value Reference Range Interpretation Comments Creatinine Lvl (test code = Creatinine 1.14 0.50-1.40 Lvl) [place] 884303-01-02 23:48:22 Test Item Value Reference Range Interpretation Comments Sodium Lvl (test code = Sodium Lvl) 141 135-145 [place] [address]-01-02 23:48:22 Test Item Value Reference Range Interpretation Comments Potassium Lvl (test code = Potassium 4.0 3.5-5.1 Lvl) [place] [address]-01-02 23:48:22 Test Item Value Reference Range Interpretation Comments Chloride Lvl (test code = Chloride Lvl) 111 95-109 [place] [address]-01-02 23:48:22 Test Item Value Reference Range Interpretation Comments CO2 (test code = CO2) 27 24-32 [place] [address]-01-02 23:48:22 Test Item Value Reference Range Interpretation Comments Calcium Lvl (test code = Calcium Lvl) 8.2 8.5-10.5 [place] [address]-01-02 23:48:22 Test Item Value Reference Range Interpretation Comments AGAP (test code = AGAP) 7.0 10.0-20.0 [place] [address]-01-02 23:48:22 Test Item Value Reference Range Interpretation Comments eGFR (test code = eGFR) 79 [facility]FbjkglhKFXDIPKSF2183-20-99 23:48:22 Test Item Value Reference Range Interpretation Comments Lipase Lvl (test code = Lipase Lvl) 88 73-393 [place] [address]-01-02 23:48:22 Test Item Value Reference Range Interpretation Comments Total Protein (test code = Total 6.4 6.4-8.4 Protein) [facility]fieldSssrrzzNAIEWLFNF5724-22-42 23:48:22 Test Item Value Reference Range Interpretation Comments Albumin Lvl (test code = Albumin Lvl) 3.0 3.5-5.0 [place] 884303-01-02 23:48:22 Test Item Value Reference Range Interpretation Comments ALANINE AMINOTRANSFERASE 52 See_Comment [A utomated message] (test code = ALANINE The sys tem which AMINOTRANSFERASE) generated this result transmitted ref erence range: <=65. Th e reference range was not used to int erpret this result as normal/abnormal . [place] 884303-01-02 23:48:22 Test Item Value Reference Range Interpretation Comments AST (test code = AST) 33 See_Comment [Auto mated message] The system which ge nerated this result transmit amanda reference range : <=37. The reference range was not used to interpr et this result as maya l/abnormal. [facility]fieldAbbpfimMRFBCUWOO1968-23-55 23:48:22 Test Item Value Reference Range Interpretation Comments Alk Phos (test code = Alk Phos) 42 39-136 [place] 884303-01-02 23:48:22 Test Item Value Reference Range Interpretation Comments Bili Total (test code = Bili Total) 0.6 0.2-1.3 [facility]fieldVobdhgxYFFDZFFUM1726-43-67 23:48:22 Test Item Value Reference Range Interpretation Comments Bili Direct (test code 0.2 See_Comment [Aut omated message] The = Bili Direct) system which generated this result tra nsmitted reference range : <=0.3. The reference r haley was not used to int erpret this result as maya l/abnormal. [facility]fieldHquyuohHRWLPTFFN3785-68-42 23:48:22 Test Item Value Reference Range Interpretation Comments Bili Indirect (test 0.4 See_Comment [Automa amanda message] The code = Bili Indirect) system which generated this result tra nsmitted reference range : <=1.0. The reference r haley was not used to int erpret this result as normal/abnormal . [facility]fieldKdyflupTGIWJIKFZ0195-54-88 23:48:22 Test Item Value Reference Range Interpretation Comments Globulin (test code = Globulin) 3.4 2.7-4.2 [place] 884303-01-02 23:48:22 Test Item Value Reference Range Interpretation Comments A/G Ratio (test code = A/G Ratio) 0.9 1 0.7-1.6 [place] 349253-01-02 23:48:22 Test Item Value Reference Range Interpretation Comments WBC X 10x3 (test code = WBC X 10x3) 4.3 3.7-10.4 [place] [address]-01-02 23:48:22 Test Item Value Reference Range Interpretation Comments RBC X 10x6 (test code = RBC X 10x6) 4.36 4.70-6.10 [place] [address]-01-02 23:48:22 Test Item Value Reference Range Interpretation Comments Hgb (test code = Hgb) 13.8 14.0-18.0 [place] 349253-01-02 23:48:22 Test Item Value Reference Range Interpretation Comments Hct (test code = Hct) 41.8 42.0-54.0 [place] [address]-01-02 23:48:22 Test Item Value Reference Range Interpretation Comments MCV (test code = MCV) 95.9 80.0-94.0 [place] [address]-01-02 23:48:22 Test Item Value Reference Range Interpretation Comments MCH (test code = MCH) 31.5 pg 27.0-31.0 [place] [address]-01-02 23:48:22 Test Item Value Reference Range Interpretation Comments MCHC (test code = MCHC) 32.9 32.0-36.0 [place] [address]-01-02 23:48:22 Test Item Value Reference Range Interpretation Comments RDW (test code = RDW) 13.1 11.5-14.5 [place] [address]-01-02 23:48:22 Test Item Value Reference Range Interpretation Comments Platelet (test code = Platelet) 103 133-450 [place] 349253-01-02 23:48:22 Test Item Value Reference Range Interpretation Comments MPV (test code = MPV) 9.6 7.4-10.4 [place] [address]-01-02 23:48:22 Test Item Value Reference Range Interpretation Comments Segs (test code = Segs) 73.5 45.0-75.0 [place] [address]-01-02 23:48:22 Test Item Value Reference Range Interpretation Comments Lymphocytes (test code = Lymphocytes) 15.2 20.0-40.0 [place] [address]-01-02 23:48:22 Test Item Value Reference Range Interpretation Comments Monocytes (test code = Monocytes) 10.5 2.0-12.0 [place] [address]-01-02 23:48:22 Test Item Value Reference Range Interpretation Comments Eosinophils (test code = 0.4 See_Comment [A utomated message] The Eosinophils) system which ge nerated this result tra nsmitted reference range : <=4.0. The reference r haley was not used to int erpret this result as normal/abnormal . [place] 349253-01-02 23:48:22 Test Item Value Reference Range Interpretation Comments Basophils (test code = 0.4 See_Comment [Aut omated message] The Basophils) system which ge nerated this result tra nsmitted reference range : <=1.0. The reference r haley was not used to int erpret this result as normal/abnormal . [facility]OfhfiboZYAVGFZOVW4952-39-65 23:48:22 Test Item Value Reference Range Interpretation Comments Neutrophils # (test code = Neutrophils 3.2 1.5-8.1 #) [facility] TexasHqorfivKLVRNXLSNL9436-23-80 23:48:22 Test Item Value Reference Range Interpretation Comments Lymphocytes # (test code = Lymphocytes 0.7 1.0-5.5 #) [facility] TexasHzzdhzdNISBUIQZNI2914-82-09 23:48:22 Test Item Value Reference Range Interpretation Comments Monocytes # (test code 0.5 See_Comment [Aut omated message] The = Monocytes #) system which generated this result tra nsmitted reference range : <=0.8. The reference r haley was not used to int erpret this result as normal/abnormal . [facility] HospitalXptczobVWGPYBIVP9868-45-22 23:48:22 Test Item Value Reference Range Interpretation Comments Glucose Lvl (test code = Glucose Lvl) 101 70-[address] [facility] HospitalVtruyyfRQRFJYRTK9233-05-66 23:48:22 Test Item Value Reference Range Interpretation Comments BUN (test code = BUN) 14 7-22 [facility]TkbcyyaALTIAESXI5062-25-97 23:48:22 Test Item Value Reference Range Interpretation Comments Creatinine Lvl (test code = Creatinine 1.14 0.50-1.40 Lvl) [facility] HospitalCksohmhGARFCESDE7172-11-24 23:48:22 Test Item Value Reference Range Interpretation Comments Sodium Lvl (test code = Sodium Lvl) 141 135-[address] [facility] HospitalOxihxjjKJLKOKJIB1799-07-70 23:48:22 Test Item Value Reference Range Interpretation Comments Potassium Lvl (test code = Potassium 4.0 3.5-5.1 Lvl) [facility]XtjglvlXADIYRLGT2028-75-35 23:48:22 Test Item Value Reference Range Interpretation Comments Chloride Lvl (test code = Chloride Lvl) 111 95-[address] [facility] HospitalKqggnakHYOELTVPL3839-23-93 23:48:22 Test Item Value Reference Range Interpretation Comments CO2 (test code = CO2) 27 24-32 [place] 884303-01-02 23:48:22 Test Item Value Reference Range Interpretation Comments Glucose Lvl (test code = Glucose Lvl) 101 70-99 [facility]fieldPfqbfhkMIIXXHQPC8530-28-90 23:48:22 Test Item Value Reference Range Interpretation Comments BUN (test code = BUN) 14 7-22 [facility]fieldUsqsothHGWCHGTDR9263-86-17 23:48:22 Test Item Value Reference Range Interpretation Comments Creatinine Lvl (test code = Creatinine 1.14 0.50-1.40 Lvl) [facility]fieldEzuyxyzWSDWXLGYV3589-08-68 23:48:22 Test Item Value Reference Range Interpretation Comments Sodium Lvl (test code = Sodium Lvl) 141 135-145 [place] 884303-01-02 23:48:22 Test Item Value Reference Range Interpretation Comments Calcium Lvl (test code = Calcium Lvl) 8.2 8.5-10.5 [facility]fieldMgosyofYRQRDYRYU4596-23-73 23:48:22 Test Item Value Reference Range Interpretation Comments Potassium Lvl (test code = Potassium 4.0 3.5-5.1 Lvl) [facility]fieldRhafstwVCNYXIIFC6917-90-61 23:48:22 Test Item Value Reference Range Interpretation Comments Chloride Lvl (test code = Chloride Lvl) 111 95-109 [facility]fieldClajtktZFANURJFC7344-56-66 23:48:22 Test Item Value Reference Range Interpretation Comments CO2 (test code = CO2) 27 24-32 [facility]fieldHjepnvyFAZBIEVGK7477-71-99 23:48:22 Test Item Value Reference Range Interpretation Comments Calcium Lvl (test code = Calcium Lvl) 8.2 8.5-10.5 [facility]fieldZjxfesdWDEUDLKCU4626-81-03 23:48:22 Test Item Value Reference Range Interpretation Comments AGAP (test code = AGAP) 7.0 10.0-20.0 [place] 884303-01-02 23:48:22 Test Item Value Reference Range Interpretation Comments eGFR (test code = eGFR) 79 [facility]fieldPyeoghuTBSZCXRDB1866-85-81 23:48:22 Test Item Value Reference Range Interpretation Comments Lipase Lvl (test code = Lipase Lvl) 88 73-393 [place] 884303-01-02 23:48:22 Test Item Value Reference Range Interpretation Comments Total Protein (test code = Total 6.4 6.4-8.4 Protein) [facility]fieldFrktzzvDIAOVXEIN2483-85-96 23:48:22 Test Item Value Reference Range Interpretation Comments Albumin Lvl (test code = Albumin Lvl) 3.0 3.5-5.0 [place] [address]-01-02 23:48:22 Test Item Value Reference Range Interpretation Comments ALANINE AMINOTRANSFERASE 52 See_Comment [A utomated message] (test code = ALANINE The sys tem which AMINOTRANSFERASE) generated this result transmitted ref erence range: <=65. Th e reference range was not used to int erpret this result as normal/abnormal . [place] [address]-01-02 23:48:22 Test Item Value Reference Range Interpretation Comments AGAP (test code = AGAP) 7.0 10.0-20.0 [place] [address]-01-02 23:48:22 Test Item Value Reference Range Interpretation Comments AST (test code = AST) 33 See_Comment [Auto mated message] The system which ge nerated this result transmit amanda reference range : <=37. The reference range was not used to interpr et this result as maya l/abnormal. [facility]fieldVsolivrEOQDKSUZD2541-57-09 23:48:22 Test Item Value Reference Range Interpretation Comments Alk Phos (test code = Alk Phos) 42 39-136 [place] [address]-01-02 23:48:22 Test Item Value Reference Range Interpretation Comments Bili Total (test code = Bili Total) 0.6 0.2-1.3 [place] [address]-01-02 23:48:22 Test Item Value Reference Range Interpretation Comments Bili Direct (test code 0.2 See_Comment [Aut omated message] The = Bili Direct) system which generated this result tra nsmitted reference range : <=0.3. The reference r haley was not used to int erpret this result as maya l/abnormal. [facility] HospitalNficajhWORJNNELG2449-68-20 23:48:22 Test Item Value Reference Range Interpretation Comments Bili Indirect (test 0.4 See_Comment [Automa amanda message] The code = Bili Indirect) system which generated this result tra nsmitted reference range : <=1.0. The reference r haley was not used to int erpret this result as normal/abnormal . [facility] HospitalEsvpvftGNZEXIXQK3340-66-64 23:48:22 Test Item Value Reference Range Interpretation Comments Globulin (test code = Globulin) 3.4 2.7-4.2 [place] 884303-01-02 23:48:22 Test Item Value Reference Range Interpretation Comments A/G Ratio (test code = A/G Ratio) 0.9 1 0.7-1.6 [place] [address]-01-02 23:48:22 Test Item Value Reference Range Interpretation Comments WBC X 10x3 (test code = WBC X 10x3) 4.3 3.7-10.4 [place] [address]-01-02 23:48:22 Test Item Value Reference Range Interpretation Comments RBC X 10x6 (test code = RBC X 10x6) 4.36 4.70-6.10 [place] [address]-01-02 23:48:22 Test Item Value Reference Range Interpretation Comments Hgb (test code = Hgb) 13.8 14.0-18.0 [place] [address]-01-02 23:48:22 Test Item Value Reference Range Interpretation Comments eGFR (test code = eGFR) 79 [facility]NsywuiyWHOYIVAHTY8658-15-08 23:48:22 Test Item Value Reference Range Interpretation Comments Hct (test code = Hct) 41.8 42.0-54.0 [facility] TexasLcoexdhDQAORUBYKK5500-57-37 23:48:22 Test Item Value Reference Range Interpretation Comments MCV (test code = MCV) 95.9 80.0-94.0 [place] 349253-01-02 23:48:22 Test Item Value Reference Range Interpretation Comments MCH (test code = MCH) 31.5 pg 27.0-31.0 [place] 349253-01-02 23:48:22 Test Item Value Reference Range Interpretation Comments MCHC (test code = MCHC) 32.9 32.0-36.0 [place] 349253-01-02 23:48:22 Test Item Value Reference Range Interpretation Comments RDW (test code = RDW) 13.1 11.5-14.5 [place] 349253-01-02 23:48:22 Test Item Value Reference Range Interpretation Comments Platelet (test code = Platelet) 103 133-450 [place] 349253-01-02 23:48:22 Test Item Value Reference Range Interpretation Comments MPV (test code = MPV) 9.6 7.4-10.4 [place] [address]-01-02 23:48:22 Test Item Value Reference Range Interpretation Comments Segs (test code = Segs) 73.5 45.0-75.0 [place] [address]-01-02 23:48:22 Test Item Value Reference Range Interpretation Comments Lymphocytes (test code = Lymphocytes) 15.2 20.0-40.0 [place] [address]-01-02 23:48:22 Test Item Value Reference Range Interpretation Comments Monocytes (test code = Monocytes) 10.5 2.0-12.0 [place] [address]-01-02 23:48:22 Test Item Value Reference Range Interpretation Comments Lipase Lvl (test code = Lipase Lvl) 88 73-393 [place] [address]-01-02 23:48:22 Test Item Value Reference Range Interpretation Comments Eosinophils (test code = 0.4 See_Comment [A utomated message] The Eosinophils) system which ge nerated this result tra nsmitted reference range : <=4.0. The reference r haley was not used to int erpret this result as normal/abnormal . [place] [address]-01-02 23:48:22 Test Item Value Reference Range Interpretation Comments Basophils (test code = 0.4 See_Comment [Aut omated message] The Basophils) system which ge nerated this result tra nsmitted reference range : <=1.0. The reference r haley was not used to int erpret this result as normal/abnormal . [place] 349253-01-02 23:48:22 Test Item Value Reference Range Interpretation Comments Neutrophils # (test code = Neutrophils 3.2 1.5-8.1 #) [place] [address]-01-02 23:48:22 Test Item Value Reference Range Interpretation Comments Lymphocytes # (test code = Lymphocytes 0.7 1.0-5.5 #) [place] [address]-01-02 23:48:22 Test Item Value Reference Range Interpretation Comments Monocytes # (test code 0.5 See_Comment [Aut omated message] The = Monocytes #) system which generated this result tra nsmitted reference range : <=0.8. The reference r haley was not used to int erpret this result as normal/abnormal . [facility] HospitalTvhcstdDBXADWYFZ9386-13-55 23:48:22 Test Item Value Reference Range Interpretation Comments Total Protein (test code = Total 6.4 6.4-8.4 Protein) [facility]fieldCtzjivmORLNRBFYV7713-85-88 23:48:22 Test Item Value Reference Range Interpretation Comments Albumin Lvl (test code = Albumin Lvl) 3.0 3.5-5.0 [facility]fieldCgtwnzmTFQQZMOYF5810-25-70 23:48:22 Test Item Value Reference Range Interpretation Comments ALANINE AMINOTRANSFERASE 52 See_Comment [A utomated message] (test code = ALANINE The sys tem which AMINOTRANSFERASE) generated this result transmitted ref erence range: <=65. Th e reference range was not used to int erpret this result as normal/abnormal . [facility] HospitalSassojuQDRKUXVVK3401-49-99 23:48:22 Test Item Value Reference Range Interpretation Comments AST (test code = AST) 33 See_Comment [Auto mated message] The system which ge nerated this result transmit amanda reference range : <=37. The reference range was not used to interpr et this result as maya l/abnormal. [facility] HospitalKrsvdqySSFHKEUMN0676-12-17 23:48:22 Test Item Value Reference Range Interpretation Comments Alk Phos (test code = Alk Phos) 42 39-136 [facility]fieldPxydfcsWSIJKICEH8526-59-37 23:48:22 Test Item Value Reference Range Interpretation Comments Bili Total (test code = Bili Total) 0.6 0.2-1.3 [facility]fieldIeylrzsRTMGSLRUO9108-65-30 23:48:22 Test Item Value Reference Range Interpretation Comments Bili Direct (test code 0.2 See_Comment [Aut omated message] The = Bili Direct) system which generated this result tra nsmitted reference range : <=0.3. The reference r haley was not used to int erpret this result as maya l/abnormal. [facility] HospitalBqrfvliYTHKXOPNL8062-60-98 23:48:22 Test Item Value Reference Range Interpretation Comments Bili Indirect (test 0.4 See_Comment [Automa amanda message] The code = Bili Indirect) system which generated this result tra nsmitted reference range : <=1.0. The reference r haley was not used to int erpret this result as normal/abnormal . [place] 884303-01-02 23:48:22 Test Item Value Reference Range Interpretation Comments Globulin (test code = Globulin) 3.4 2.7-4.2 [place] 884303-01-02 23:48:22 Test Item Value Reference Range Interpretation Comments A/G Ratio (test code = A/G Ratio) 0.9 1 0.7-1.6 [place] 349253-01-02 23:48:22 Test Item Value Reference Range Interpretation Comments WBC X 10x3 (test code = WBC X 10x3) 4.3 3.7-10.4 [place] 349253-01-02 23:48:22 Test Item Value Reference Range Interpretation Comments RBC X 10x6 (test code = RBC X 10x6) 4.36 4.70-6.10 [place] 349253-01-02 23:48:22 Test Item Value Reference Range Interpretation Comments Hgb (test code = Hgb) 13.8 14.0-18.0 [facility] TexasZdbjurvSXUNTDTDRI1565-85-53 23:48:22 Test Item Value Reference Range Interpretation Comments Hct (test code = Hct) 41.8 42.0-54.0 [facility] TexasFlbdetxRBNRZTHSPY1541-21-87 23:48:22 Test Item Value Reference Range Interpretation Comments MCV (test code = MCV) 95.9 80.0-94.0 [facility] TexasVobxdphBTIQJHQKGF2487-86-55 23:48:22 Test Item Value Reference Range Interpretation Comments MCH (test code = MCH) 31.5 pg 27.0-31.0 [facility] TexasVzkzkjrASPJFBAPRL4208-56-19 23:48:22 Test Item Value Reference Range Interpretation Comments MCHC (test code = MCHC) 32.9 32.0-36.0 [place] [address]-01-02 23:48:22 Test Item Value Reference Range Interpretation Comments RDW (test code = RDW) 13.1 11.5-14.5 [place] [address]-01-02 23:48:22 Test Item Value Reference Range Interpretation Comments Platelet (test code = Platelet) 103 133-450 [facility] TexasRlxbyojXDZBFOUGUZ4063-79-26 23:48:22 Test Item Value Reference Range Interpretation Comments MPV (test code = MPV) 9.6 7.4-10.4 [place] [address]-01-02 23:48:22 Test Item Value Reference Range Interpretation Comments Segs (test code = Segs) 73.5 45.0-75.0 [place] [address]-01-02 23:48:22 Test Item Value Reference Range Interpretation Comments Lymphocytes (test code = Lymphocytes) 15.2 20.0-40.0 [place] [address]-01-02 23:48:22 Test Item Value Reference Range Interpretation Comments Monocytes (test code = Monocytes) 10.5 2.0-12.0 [place] [address]-01-02 23:48:22 Test Item Value Reference Range Interpretation Comments Eosinophils (test code = 0.4 See_Comment [A utomated message] The Eosinophils) system which ge nerated this result tra nsmitted reference range : <=4.0. The reference r haley was not used to int erpret this result as normal/abnormal . [place] [address]-01-02 23:48:22 Test Item Value Reference Range Interpretation Comments Basophils (test code = 0.4 See_Comment [Aut omated message] The Basophils) system which ge nerated this result tra nsmitted reference range : <=1.0. The reference r haley was not used to int erpret this result as normal/abnormal . [place] [address]-01-02 23:48:22 Test Item Value Reference Range Interpretation Comments Neutrophils # (test code = Neutrophils 3.2 1.5-8.1 #) [place] [address]-01-02 23:48:22 Test Item Value Reference Range Interpretation Comments Lymphocytes # (test code = Lymphocytes 0.7 1.0-5.5 #) [place] [address]-01-02 23:48:22 Test Item Value Reference Range Interpretation Comments Monocytes # (test code 0.5 See_Comment [Aut omated message] The = Monocytes #) system which generated this result tra nsmitted reference range : <=0.8. The reference r haley was not used to int erpret this result as normal/abnormal . [place] [address]-01-02 23:48:22 Test Item Value Reference Range Interpretation Comments Glucose Lvl (test code = Glucose Lvl) 101 70-99 [place] [address]-01-02 23:48:22 Test Item Value Reference Range Interpretation Comments BUN (test code = BUN) 14 7-22 [facility]ItafrmdESVFZZ5461[facility] 23:04:23 Test Item Value Reference Range Interpretation Comments RADRPT (test code = EXAM: XR CHEST 2 RADRPT) VIEWSDATE: 07/12/2022 15:53 INDICATION: - chest painCOMPARISON: None.UT SECTION: ERTECHNIQUE: PA and lateral chest radiographs.FINDINGS:Line s, tubes and hardware: None.Lungs and pleura: The lungs are clear. The costophrenic sulci are sharp without effusion. No pneumothorax is identified.Heart and mediastinum: The heart size is normal. The mediastinal contours are normal. Bones and soft tissues: No acute abnormality.IMPRESSION: 1. No acute abnormality. [facility] CenterTqevmnsKBWVTN2911-69-74 23:04:23 Test Item Value Reference Range Interpretation Comments RADRPT (test code = EXAM: XR CHEST 2 RADRPT) VIEWSDATE: 07/12/2022 15:53 INDICATION: - chest painCOMPARISON: None.UT SECTION: ERTECHNIQUE: PA and lateral chest radiographs.FINDINGS:Line s, tubes and hardware: None.Lungs and pleura: The lungs are clear. The costophrenic sulci are sharp without effusion. No pneumothorax is identified.Heart and mediastinum: The heart size is normal. The mediastinal contours are normal. Bones and soft tissues: No acute abnormality.IMPRESSION: 1. No acute abnormality. [id number] Test Item Value Reference Range Interpretation Comments RADRPT (test code = EXAM: XR CHEST 2 RADRPT) VIEWSDATE: 07/12/2022 15:53 INDICATION: - chest painCOMPARISON: None.UT SECTION: ERTECHNIQUE: PA and lateral chest radiographs.FINDINGS:Line s, tubes and hardware: None.Lungs and pleura: The lungs are clear. The costophrenic sulci are sharp without effusion. No pneumothorax is identified.Heart and mediastinum: The heart size is normal. The mediastinal contours are normal. Bones and soft tissues: No acute abnormality.IMPRESSION: 1. No acute abnormality. [facility] Notes Date/Time Note Provider Source 2022-07-12 EXAM: ABDOMEN/PELVIS W IV CONTRAST CT [facility] 22:17:16-00:00 HISTORY: 47 year-old man wit h abdominal pain. History of appendectomy, cholecystectomy, gastric banding, and hiatal hernia repair. Patient presents with epigastric pain. Concern at outside hospital for Center unknown possible perforation but unable to perform CT due to weight. Abdomen soft with diffuse moderate tenderness to palpation. TECHNIQUE: Contrast - IV contrast was given, no oral contrast was given Portal venous phase - abdomen and pelvis Reconstructions - coronal and sagittal planes COMPARISON: None FINDINGS: Statements: None. Thoracic: Included images of the lower chest dem onstrate no abnormalities. Hepatobiliary: Diffuse low a ttenuation of the hepatic parenchyma is compatible with steatosis. No focal hepatic lesion detected. The gallbladder is surgically absent. No biliary dilation. Pancreas: No focal lesion or ductal dilatation. Spleen: Normal in size. Few punctate calcific fo ci, likely granulomas. Adrenals: No abnormality identified in either ad renal gland. Genitourinary: Symmetric enh ancement. No hydronephrosis. The bladder is unremarkable. Prostate and seminal vesicles are unremarkable. Gastrointestinal: Mild circu mferential distal esophageal wall thickening. Small hiatal hernia. Postsurgical changes are present at the stomach. Incidental note of small duodenal lipoma.. No dilated moris l. No findings of inflammation. Appendix is not visualized. Vascular/Lymphatics: Mildly prominent central mesenteric lymph nodes with mild increased attenuation in the surrounding fat as may be seen with mesenteric panniculitis. Abdominal aorta is normal in caliber. MSK/Body Wall: No concerning bony lesion id entified. Atrophic changes at the mid and inferior right rectus abdominal is muscle. Moderate left and mild right fat-containing inguinal hernias. Fat density structure within the muscle at the lateral left pelvis likely represents a lipoma. Peritoneum/Other: No extraluminal air. No extral uminal fluid. IMPRESSION: 1. No acute abnormality in the abdomen or pelvis . 2. Postsurgical changes at t he stomach. May be correlated with surgical history for surgery type. Small hiatal hernia present and mild, circumferential, distal esophageal wall thickening, as may be seen with esophagitis. 3. Findings in central mesen amy compatible with sequela of mesenteric panniculitis with prominent central mesenteric lymph nodes and with subtle increased attenuation of the mesenteric fat. 4. Hepatic steatosis. 5. Fat-containing inguinal hernias (left moderat e in size, right mild). 2022-07-12 EXAM: ABDOMEN/PELVIS W IV CONTRAST CT [facility] 22:17:16-00:00 HISTORY: 47 year-old man wit h abdominal pain. History of appendectomy, cholecystectomy, gastric banding, and hiatal hernia repair. Patient presents with epigastric pain. Concern at outside hospital for Center unknown possible perforation but unable to perform CT due to weight. Abdomen soft with diffuse moderate tenderness to palpation. TECHNIQUE: Contrast - IV contrast was given, no oral contrast was given Portal venous phase - abdomen and pelvis Reconstructions - coronal and sagittal planes COMPARISON: None FINDINGS: Statements: None. Thoracic: Included images of the lower chest dem onstrate no abnormalities. Hepatobiliary: Diffuse low a ttenuation of the hepatic parenchyma is compatible with steatosis. No focal hepatic lesion detected. The gallbladder is surgically absent. No biliary dilation. Pancreas: No focal lesion or ductal dilatation. Spleen: Normal in size. Few punctate calcific fo ci, likely granulomas. Adrenals: No abnormality identified in either ad renal gland. Genitourinary: Symmetric enh ancement. No hydronephrosis. The bladder is unremarkable. Prostate and seminal vesicles are unremarkable. Gastrointestinal: Mild circu mferential distal esophageal wall thickening. Small hiatal hernia. Postsurgical changes are present at the stomach. Incidental note of small duodenal lipoma.. No dilated moris l. No findings of inflammation. Appendix is not visualized. Vascular/Lymphatics: Mildly prominent central mesenteric lymph nodes with mild increased attenuation in the surrounding fat as may be seen with mesenteric panniculitis. Abdominal aorta is normal in caliber. MSK/Body Wall: No concerning bony lesion id entified. Atrophic changes at the mid and inferior right rectus abdominal is muscle. Moderate left and mild right fat-containing inguinal hernias. Fat density structure within the muscle at the lateral left pelvis likely represents a lipoma. Peritoneum/Other: No extraluminal air. No extral uminal fluid. IMPRESSION: 1. No acute abnormality in the abdomen or pelvis . 2. Postsurgical changes at t he stomach. May be correlated with surgical history for surgery type. Small hiatal hernia present and mild, circumferential, distal esophageal wall thickening, as may be seen with esophagitis. 3. Findings in central mesen amy compatible with sequela of mesenteric panniculitis with prominent central mesenteric lymph nodes and with subtle increased attenuation of the mesenteric fat. 4. Hepatic steatosis. 5. Fat-containing inguinal hernias (left moderat e in size, right mild). 2022-07-12 EXAM: XR CHEST 2 VIEWS [facility] 16:11:54-00:00 DATE: 07/12/2022 15:53 Center INDICATION: - chest pain COMPARISON: None. UT SECTION: ER TECHNIQUE: PA and lateral chest radiographs. FINDINGS: Lines, tubes and hardware: None. Lungs and pleura: The lungs are clear. The costophrenic sulci are sharp without effusion. No pneumothorax is identified. Heart and mediastinum: The h eart size is normal. The mediastinal contours are normal. Bones and soft tissues: No acute abnormality. IMPRESSION: 1. No acute abnormality. 2022-07-12 EXAM: XR CHEST 2 VIEWS [facility] 16:11:54-00:00 DATE: 07/12/2022 15:53 Center INDICATION: - chest pain COMPARISON: None. UT SECTION: ER TECHNIQUE: PA and lateral chest radiographs. FINDINGS: Lines, tubes and hardware: None. Lungs and pleura: The lungs are clear. The costophrenic sulci are sharp without effusion. No pneumothorax is identified. Heart and mediastinum: The h eart size is normal. The mediastinal contours are normal. Bones and soft tissues: No acute abnormality. IMPRESSION: 1. No acute abnormality.
[2023-01-13 12:49] LABS: Absolute Lymphocytes (CBC) 0.9 K/uL (0.7-4.9); Hematocrit 40.9 % (39.6-49.0); Lymphocytes % 7.2 % (15.3-44.8); MCV 94.6 fL (80-100); MPV 9.2 fL (7.6-11.3); RBC Red Blood Cell Count 4.33 M/uL (4.33-5.43)
[2023-01-13 12:54] LABS: Protime INR 1.18
[2023-01-13 13:05] LABS: Albumin 3.2 g/dL (3.4-5.0); Bilirubin Total 0.7 mg/dL (0.2-1.0); Potassium 3.8 mEq/L (3.5-5.1); Protein, Total 6.9 g/dL (6.4-8.2)
[2023-01-13 13:09] LABS: Blood Morphology Comment NOT SEEN (NOT SEEN); Platelet Estimate DECR; White Blood Cell Scan OK (OK)
--- NOTE | 2023-01-13 13:15 | RAD REPORT ---
EXAM DESCRIPTION: US - Extremity Venous Uni Ltd - 01/13/2023 12:54 pm CLINICAL HISTORY: Pain, swelling COMPARISON: None. TECHNIQUE: Real-time sonographic evaluation of the right lower extremity deep venous system was perf ormed. FINDINGS: Normal compressibility, flow augmentation, phasic flow and spontaneous flow is identified in the right lower extremity deep venous system. No intraluminal filling defects seen. Mild subcutan eous edema in the lower leg. IMPRESSION: No DVT in the right lower extremity.
--- NOTE | 2023-01-13 14:36 | EDPHYS ---
Physician Documentation [facility] Name: Tommy Mcfarland Age: 47 yrs Sex: Male : 1975 Arrival Date: 01/13/2023 Time: 12:09 Bed 12 Private MD: ED Physician Sarwat Mckenzie HPI: 01/13 17:40 This 47 yrs old Male presents to ER via Ambulatory with complaints of Fever, Leg Pain, kb General Weakness. 17:40 The patient presents with cellulitis of the right leg. Description: erythematous, hot, kb swollen. Onset: The symptoms/episode began/occurred last night. Possible cause(s): unknown. Associated signs and symptoms: Pertinent positives: erythema, fever, swelling. Modifying factors: the symptoms are alleviated by nothing, the symptoms are aggravated by pressure, touching. Severity of symptoms: At their worst the symptoms were moderate, in the emergency department the symptoms are unchanged. The patient has not experienced similar symptoms in the past. The patient has not recently seen a physician. Pt reports weakness, fatigue, malaise, fever, chills, bodyaches and redness/swelling/warmth to right lower leg. concerned about blood clot. Historical: - Allergies: 12:18 CEPHALOSPORINS; ll1 - PMHx: 12:18 Hypertensive disorder; ll1 - PSHx: 12:18 Appendectomy; Cholecystectomy; Tonsillectomy; Adenoid excision; ll1 - Immunization history:: Client reports receiving the 2nd dose of the Covid vaccine. - Social history:: Smoking status: Patient denies any tobacco usage or history of. ROS: 17:39 Respiratory: Negative for shortness of breath, cough, wheezing, and pleuritic chest kb pain. 17:39 Constitutional: Positive for body aches, chills, fatigue, fever, malaise. 17:39 Skin: Positive for erythema, swelling, of the right leg. 17:39 Neuro: Positive for weakness. 17:39 All other systems are negative. Exam: 17:39 Constitutional: This is a well developed, well nourished patient who is awake, alert, kb and in no acute distress. Head/Face: Normocephalic, atraumatic. ENT: Moist Mucous membranes Cardiovascular: Regular rate and rhythm with a normal S1 and S2. No gallops, murmurs, or rubs. No pulse deficits. Respiratory: Respirations even and unlabored. No increased work of breathing. Talking in full sentences Abdomen/GI: Soft, non-tender. No distention MS/ Extremity: Pulses equal, no cyanosis. Neurovascular intact. Full, normal range of motion. Neuro: Awake and alert, GCS 15, oriented to person, place, time, and situation. Moves all extremities. Normal gait. 17:39 Skin: cellulitis, that is moderate, on the right leg. Vital Signs: 12:18 BP 146 / 86; Pulse 99; Resp 18; Temp 98.3; Pulse Ox 97% on R/A; Pain 7/10; ll1 13:30 BP 138 / 82; Pulse 92; Resp 16; Pulse Ox 99% ; ko1 14:50 BP 132 / 78; Pulse 90; Resp 16; Pulse Ox 100% ; ko1 12:18 Pain Scale: Adult ll1 MDM: 12:15 Patient medically screened. kb 17:41 Differential diagnosis: abscess, allergic reaction, cellulitis, insect bite, flu, kb covid. Data reviewed: vital signs, nurses notes. Consideration of Admission/Observation Escalation of care including admission/observation considered. admission considered, but pt is nontoxic in appearance, tolerating po intake and vss.. Test considered but Not performed: Labs: flu and covid tests considered for bodyaches, malaise, fever, chills. Pt refuses at this time. Counseling: I had a detailed discussion with the patient and/or guardian regarding: the historical points, exam findings, and any diagnostic results supporting the discharge/admit diagnosis, lab results, radiology results, the need for outpatient follow up, a family practitioner, to return to the emergency department if symptoms worsen or persist or if there are any questions or concerns that arise at home. 01/13 12:26 Order name: Blood Culture Adult (2) 01/13 12:26 Order name: CBC with Diff; Complete Time: 13:10 kb 01/13 12:26 Order name: CMP; Complete Time: 13:09 kb 01/13 12:26 Order name: Lactate w/ 2H reflex if indic.; Complete Time: 13:10 kb 01/13 12:26 Order name: Protime (+inr); Complete Time: 12:58 kb 01/13 12:26 Order name: Ptt, Activated; Complete Time: 12:58 kb 01/13 12:52 Order name: CBC Smear Scan; Complete Time: 13:10 EDMS 01/13 12:26 Order name: US Extremity Venous Unilateral Ltd; Complete Time: 13:16 kb 01/13 12:26 Order name: EKG; Complete Time: 12:27 kb 01/13 12:26 Order name: Accucheck; Complete Time: 12:43 kb 01/13 12:26 Order name: Cardiac monitoring; Complete Time: 12:43 kb 01/13 12:26 Order name: EKG - Nurse/Tech; Complete Time: 12:40 kb 01/13 12:26 Order name: IV Saline Lock - Large Bore; Complete Time: 12:40 kb 01/13 12:26 Order name: Labs collected and sent; Complete Time: 12:40 kb 01/13 12:26 Order name: O2 Per Protocol; Complete Time: 12:34 kb 01/13 12:26 Order name: O2 Sat Monitoring; Complete Time: 12:34 kb 01/13 12:26 Order name: Vital Signs; Complete Time: 12:27 kb Administered Medications: 14:43 Drug: Ketorolac IVP 15 mg Route: IVP; Site: right hand; ko1 14:43 Drug: Trimethoprim-Sulfamethoxazole PO (160 mg-800 mg (DS) 1 tablet Route: PO; ko1 14:43 Drug: [place] PO 10 mg-325 mg 1 tabs Route: PO; ko1 14:43 Drug: Doxycycline PO 100 mg Route: PO; ko1 Disposition: 20:35 Co-signature as Attending Physician, Sarwat Mckenzie MD I reviewed the patient's care rn provided by the Advanced Practice Provider and agree with the diagnosis and treatment plan. Disposition Summary: 01/13/23 14:35 Discharge Ordered Location: Home kb Condition: Stable kb Diagnosis - Cellulitis of right lower limb kb Followup: kb - With: Emergency Department - When: As needed - Reason: Worsening of condition Followup: kb - With: Private Physician - When: 2 - 3 days - Reason: Recheck today's complaints, Continuance of care, Re-evaluation by your physician Discharge Instructions: - Discharge Summary Sheet kb - Cellulitis, Adult, [id number] kb Forms: - Medication Reconciliation Form kb - Thank You Letter kb - Antibiotic Education kb - Prescription Opioid Use kb - [email or web address] kb Prescriptions: - Doxycycline Hyclate 100 mg Oral Tablet - take 1 tablet by ORAL route every 12 hours; 20 tablet; Refills: 0, Product kb Selection Permitted - Tramadol 50 mg Oral Tablet - take 1 tablet by ORAL route every 8 hours as needed; 12 tablet; Refills: 0, kb Product Selection Permitted - Bactrim DS 800-160 mg Oral Tablet - take 1 tablet by ORAL route every 12 hours for 10 days; 20 tablet; Refills: 0, kb Product Selection Permitted Signatures: Dispatcher [employer] EDKiana Ansari, ORACLE DATABASE ANALYST-C ORACLE DATABASE ANALYST-Ckb Sarwat Mckenzie MD MD rn Lewis, Lynsay RN RN ll1 Milagro Mora RN RN ko1
--- NOTE | 2023-01-13 14:36 | ER ---
Nurse's Notes [facility] Name: Tommy Mcfarland Age: 47 yrs Sex: Male : 1975 Arrival Date: 01/13/2023 Time: 12:09 Bed 12 Private MD: Diagnosis: Cellulitis of right lower limb Presentation: 01/13 12:18 Chief complaint: Patient states: Chills, weakness, fever, leg pains, PACK since last ll1 night at 9 PM. Noticed RLE is red, tender. Coronavirus screen: Vaccine status: Patient reports receiving the 2nd dose of the covid vaccine. Client denies travel out of the [place] in the last 14 days. At this time, the client does not indicate any symptoms associated with coronavirus-19. Ebola Screen: Patient denies travel to an Ebola-affected area in the 21 days before illness onset. Initial Sepsis Screen: Does the patient meet any 2 criteria? No. Patient's initial sepsis screen is negative. Does the patient have a suspected source of infection? Yes: Skin breakdown/wound. Risk Assessment: Do you want to hurt yourself or someone else? Patient reports no desire to harm self or others. Onset of symptoms was January 12, 2023. 12:18 Method Of Arrival: Ambulatory ll1 12:18 Acuity: HEIDI 3 ll1 Triage Assessment: 12:20 General: Appears uncomfortable, ill, Behavior is calm, cooperative, appropriate for ll1 age. General: Reports chills for 12-24 hours, fever for feeling ill for fatigue for. Pain: Complains of pain in right leg Quality of pain is described as aching, tender. Neuro: Reports headache weakness. Derm: Reports pain redness RLE. Historical: - Allergies: 12:18 CEPHALOSPORINS; ll1 - PMHx: 12:18 Hypertensive disorder; ll1 - PSHx: 12:18 Appendectomy; Cholecystectomy; Tonsillectomy; Adenoid excision; ll1 - Immunization history:: Client reports receiving the 2nd dose of the Covid vaccine. - Social history:: Smoking status: Patient denies any tobacco usage or history of. Screenin:12 [facility] ED Fall Risk Assessment (Adult) History of falling in the last 3 months, ko1 including since admission No falls in past 3 months (0 pts) Confusion or Disorientation No (0 pts) Intoxicated or Sedated No (0 pts) Impaired Gait No (0 pts) Mobility Assist Device Used No (0 pt) Altered Elimination No (0 pt) Score/Fall Risk Level 0 - 2 = Low Risk Oriented to surroundings, Maintained a safe environment, Educated pt \T\ family on fall prevention, incl call for assistance when getting out of bed, Assessed \T\ reinforced patient's understanding of fall precautions, Provided non-skid footwear, Hourly rounding (assess needs \T\ fall precautionary measures) done, Used ambulatory aids as needed (educated on \T\ assisted with), Used gait belt as appropriate. Abuse screen: Denies threats or abuse. Denies injuries from another. Nutritional screening: No deficits noted. Tuberculosis screening: No symptoms or risk factors identified. Assessment: 13:10 Neuro: No deficits noted. Cardiovascular: No deficits noted. Respiratory: No deficits ko1 noted. GI: No deficits noted. : No deficits noted. EENT: No deficits noted. Derm: Skin is red, RLE. Musculoskeletal: Reports pain in right leg. 14:21 Reassessment: Patient appears in no apparent distress at this time. Patient and/or ko1 family updated on plan of care and expected duration. Pain level reassessed. Vital Signs: 12:18 BP 146 / 86; Pulse 99; Resp 18; Temp 98.3; Pulse Ox 97% on R/A; Pain 7/10; ll1 13:30 BP 138 / 82; Pulse 92; Resp 16; Pulse Ox 99% ; ko1 14:50 BP 132 / 78; Pulse 90; Resp 16; Pulse Ox 100% ; ko1 12:18 Pain Scale: Adult ll1 ED Course: 12:11 Patient arrived in ED. am2 12:15 Kiana Wang FNP-C [facility] kb 12:15 Sarwat Mckenzie MD is Attending Physician. kb 12:20 Triage completed. ll1 12:20 Arm band placed on Patient placed in an exam room, on a stretcher. ll1 12:26 Milagro Mora, ANDRES is Primary Nurse. ko1 12:35 Inserted saline lock: 22 gauge in right hand, using aseptic technique. Blood collected. ll1 12:40 Lactate w/ 2H reflex if indic. Sent. ll1 12:43 Blood Culture Adult (2) Sent. ko1 12:43 CBC with Diff Sent. ko1 12:43 CMP Sent. ko1 12:43 Protime (+inr) Sent. ko1 12:43 Ptt, Activated Sent. ko1 12:56 US Extremity Venous Unilateral Ltd In Process Unspecified. EDMS 13:12 Patient has correct armband on for positive identification. Bed in low position. Call ko1 light in reach. Side rails up X 1. Client placed on continuous cardiac and pulse oximetry monitoring. NIBP monitoring applied. engine monitor on. Door closed. Noise minimized. Lights dimmed. 14:58 No provider procedures requiring assistance completed. IV discontinued, intact, ko1 bleeding controlled, No redness/swelling at site. Pressure dressing applied. Administered Medications: 14:43 Drug: Ketorolac IVP 15 mg Route: IVP; Site: right hand; ko1 14:43 Drug: Trimethoprim-Sulfamethoxazole PO (160 mg-800 mg (DS) 1 tablet Route: PO; ko1 14:43 Drug: [place] PO 10 mg-325 mg 1 tabs Route: PO; ko1 14:43 Drug: Doxycycline PO 100 mg Route: PO; ko1 Medication: 14:50 VIS not applicable for this client. ko1 Outcome: 14:35 Discharge ordered by . kb 14:58 Discharged to home ambulatory. ko1 14:58 Condition: stable 14:58 Discharge instructions given to patient, Instructed on discharge instructions, follow up and referral plans. medication usage, Demonstrated understanding of instructions, follow-up care, medications, Prescriptions given X 3. 14:59 Patient left the ED. ko1 Signatures: Dispatcher [employer] EDMS Kiana Wang, BRANCH OPERATIONS MANAGER-C BRANCH OPERATIONS MANAGER-Tiffany Daniels am2 Cam Rankin, RN RN ll1 Milagro Mora, RN RN ko1
[2023-01-13] MEDS ORDERED: DOXYCYCLINE 100 MG CAP PO ONE (14:50)
[2023-01-13] MEDS ORDERED: HYDROCODONE/APAP 10/325 TAB ONE (14:51)
[2023-01-13] MEDS ORDERED: SMZ./TMP. 800/160 MG TABLET ONE (14:51)
[2023-01-13] MEDS ORDERED: KETOROLAC 30 MG/ML INJ ONE (14:51)
[2023-01-13 15:44] VITALS: TEMP 98.3
[2023-01-13 15:49] VITALS: BP 132/78; O2SAT 100
--- NOTE | 2023-01-15 16:24 | EKG ---
Test Date: 2023-01-13 Test Time: 12:34:00 [employer] Para Professional: TONY MEASUREMENT RESULTS: Intervals: Rate: 88 IA: 150 QRSD: 102 QT: 358 QTc: 433 [place]: P: 51 IA: 150 QRS: 0 T: 34 INTERPRETIVE STATEMENTS: Normal sinus rhythm Normal ECG Compared to ECG 07/11/2022 21:39:29 Sinus tachycardia no longer present Electronically Signed On 01-15-23 16:19:08 CDT by Fransisco Jeong
== END 2023-01-13 14:59 | disposition home or self-care (01) ==
LOC: ER 12:09
DX: L03.115 Cellulitis of right lower limb (principal); R53.1 Weakness; R50.9 Fever, unspecified; I10 Essential (primary) hypertension; Z88.3 Allergy status to other anti-infective agents
CPT/HCPCS: 36415; 80053; 83605; 85025; 85610; 85730; 87040; 93005; 93971; 96374; 99285